=== PATIENT | female | born 1955 | race Caucasian/White ===

== ENCOUNTER → 2017-01-06 | Outpatient (CLI) | payer BC ==
[~2017-01-06] MED LIST: ESTR1TAB24 PO; HYDR-3729 PO; MEDR2.5T PO
--- NOTE | 2017-01-06 11:32 | Diagnostic Imaging Report ---
PROCEDURE: US Thyroid. TECHNIQUE: Multiple real-time grayscale images were obtained of the thyroid in various projections. INDICATION: Thyroid nodule. FINDINGS: The right thyroid lobe is 4.3 x 1.9 x 1.8 cm. The left lobe is 5.1 x 2.5 x 1.8 cm. There is a solid nodule in the inferior aspect of the left lobe measuring 1.7 x 2.5 x 2.2 cm, similar to 01/23/2017. This appears to be stable compared to older studies as well including 2015 exams. There is a nodule in the right thyroid lobe measuring 1.2 x 1.6 x 1.8 cm. This is also similar to prior studies. No new nodule is seen. IMPRESSION: Bilateral stable thyroid nodules likely related to multinodular goiter. Dictated by: Dictated on workstation # [id number]
== END ==
LOC: RAD 09:19
PROVIDERS: ATTEND Otolaryngology Otolaryngology/Facial Plastic Surgery
DX: E04.2 Nontoxic multinodular goiter (principal)
CPT/HCPCS: 76536

== ENCOUNTER → 2017-09-15 | Outpatient (CLI) | payer BC ==
--- NOTE | 2017-09-15 15:11 | Diagnostic Imaging Report ---
INDICATION: Family history of renal cell carcinoma. COMPARISON: Correlation is made with the prior renal ultrasound from 03/13/[address] abdomen study from 03/21/2016. FINDINGS: The right kidney measures 11.3 x 4.7 x 4.1 cm and left kidney measures 10.4 x 5.8 x 5.3 cm. The area of cortical increased echogenicity in the lower pole of the left kidney appears stable when compared with prior ultrasound. No new renal mass is identified. No hydronephrosis is seen. The bladder is decompressed. IMPRESSION: Overall stable renal ultrasound when compared with prior exam from 03/13/2016. Dictated by: Dictated on workstation # [id number]
== END ==
LOC: RAD 12:53
PROVIDERS: ATTEND Nurse Practitioner Family
DX: Q87.89 Other specified congenital malformation syndromes, not elsewhere classified (principal); Z80.51 Family history of malignant neoplasm of kidney
CPT/HCPCS: 76770

== ENCOUNTER 2017-12-22 08:30 | Outpatient (CLI) | payer BC ==
[~2017-12-22] VITALS: Ht 160 cm; Wt 64.4 kg
[~2017-12-22 08:30] MED LIST changes: +MEDR2.5T6 PO
== END 2017-12-22 10:22 ==
LOC: PREOP 08:30
PROVIDERS: ATTEND Surgery
DX: Z01.818 Encounter for other preprocedural examination (principal); Z12.11 Encounter for screening for malignant neoplasm of colon

== ENCOUNTER 2017-12-26 07:16 | Day surgery (SDC) | payer BC ==
--- NOTE | 2017-12-18 06:49 | HISTORY AND PHYSICAL ---
DATE OF SERVICE: COLONOSCOPY H AND P HISTORY OF PRESENT ILLNESS: The patient is a 62-year-old white female, referred by Dr. Jaimes, for screening colonoscopy. She reports one other past colonoscopy likely over 10 years ago, but she does not recall any problems with and did not believe there was history of polyposis or diverticulosis. She reports that she feels well and has again denies bowel habit change, abdominal pain or a known family history for colon cancer. PAST MEDICAL HISTORY: She currently is only on hormone replacement therapy, taking no other medications and reporting no other past medical problems. FAMILY HISTORY: Pertinent for kidney cancer in multiple family members, including her brother diagnosed in his 20s and mother and grandfather, who had kidney cancer both believed to be over than 50 at the time of their diagnosis. Mother at the age of 80 secondary to breast cancer now that became widely metastatic. Father is still living at the age of 82 with hypertension. PAST SURGICAL HISTORY: She underwent cholecystectomy 3 years ago, distant past history of x1, with as I recall two living adult children. SOCIAL HISTORY: She is employed with no past smoking history and no significant past alcohol history. PHYSICAL EXAMINATION: GENERAL: Reveals a well-appearing white female with a normal weight in no acute distress. VITAL SIGNS: Blood pressure 120/80, heart rate 72 and regular. HEENT: Unremarkable. Sclerae are nonicteric. She has a Mallampati class 3 oropharyngeal configuration without evidence for erythema or exudate. CHEST: Clear to auscultation. CARDIOVASCULAR: Reveals a regular rate and rhythm without murmur, S3 or S4. ABDOMEN: Soft, supple without mass, organomegaly or tenderness. EXTREMITIES: Reveal no cyanosis, clubbing or edema. ASSESSMENT: The patient was set up for screening colonoscopy on 12/26, deemed to be of average risk. Prep instructions with Suprep kit were given and questions were answered. With review of her electronic medical record and above evaluation, 45 minutes care time was spent by myself and other 15 minutes of staff time setting of the procedure and going over prep instructions. I thank you for the referral of this pleasant lady. Job ID: [id number] DocumentID: [id number] Dictated Date: 12/12/2017 11:29:31 Sample Sawyer Date: 12/12/2017 12:10:00 Dictated By: TARAN SERRANO MD
[~2017-12-26] VITALS: Ht 160 cm; Wt 64.4 kg
[2017-12-26] MEDS ORDERED: D5 LR IV SOLUTION 1,000 ML IV ONE (07:22)
[2017-12-26] MEDS ORDERED: D5 LR IV SOLUTION 1,000 ML IV STA (07:25)
[2017-12-26] MEDS ORDERED: LIDOCAINE JELLY 2% (XYLOCAINE) 5 ML TUBE MM PRN (07:30)
[2017-12-26 07:37] VITALS: BP 134/80
[2017-12-26] MEDS ORDERED: fentaNYL INJECTION 100 MCG/2 ML AMP ONE ×2 (07:58→08:17)
[2017-12-26] MEDS ORDERED: LIDOCAINE JELLY 2% (XYLOCAINE) 5 ML TUBE ONE (07:58)
[2017-12-26] MEDS ORDERED: MIDAZOLAM 2 MG/2 ML (VERSED) VIAL ONE ×3 (07:59→08:17)
[2017-12-26] MEDS: fentaNYL INJECTION 100 MCG/2 ML AMP IVP PRN ×2 (08:10→08:17)
[2017-12-26] MEDS: MIDAZOLAM 2 MG/2 ML (VERSED) VIAL IVP PRN ×2 (08:11→08:20)
--- NOTE | 2017-12-26 08:51 | Pre-Op Note & Conscious Sedat ---
Pre-Operative Progress Note H&P Reviewed The H&P was reviewed, patient examined and no changes noted. Date H&P Reviewed: Dec 26, 2017 Time H&P Reviewed: 07:50 Conscious Sedation Pre-Proced ASA Class: 2 Airway Mallampati Classification: ([place] appropriate class) I. II. III, IV Lungs Heart ASA score ASA 1: a normal healthy patient ASA 2: a patient with a mild systemic disease (mid diabetes, controlled hypertension, obesity ASA 3: a patient with a severe systemic disease that limits activity (angina , COPD, prior Myocardial infarction) ASA 4: a patient with an incapacitating disease that is a constant threat to life (CHF, renal failure) ASA 5: a moribund patient not expected to survive 24 hrs. (ruptured aneurysm) ASA 6: a declared brain patient whose organs are being harvested. For emergent operations, add the letter E after the classification Grade 3 Sedation Plan: Analgesia, Amnesia, Plan communicated to team members, Discussed options with patient/fam, Discussed risks with patient/fam Note The patient is an appropriate candidate to undergo the planned procedure, sedation, and anesthesia. The patient immediately re-assessed prior to indication. TARAN SERRANO MD Dec 26, 2017 08:51
[2017-12-26 08:55] VITALS: BP 117/67
[2017-12-26 09:25] VITALS: BP 117/55
[2017-12-26 09:40] VITALS: BP 117/55
--- NOTE | 2017-12-26 15:26 | OPERATIVE REPORT ---
DATE OF SERVICE: COLONOSCOPY SUMMARY INDICATIONS FOR THE PROCEDURE: Screening colonoscopy. DESCRIPTION OF PROCEDURE: The patient was placed in the left lateral decubitus position. Prior to undergoing colonoscopy, digital rectal evaluation was performed. Anal sphincter tone was normal and the perianal reflexes intact. No abnormalities, no additional inspection of the anal canal or distal rectal vault. Anal sphincter tone was normal. The colonoscope was then inserted into the rectum and under direct visualization advanced to cecum. The cecum was identified by identification of the ileocecal valve, cecal strap, and the appendiceal orifice. Photographic documentation was obtained. A careful inspection was made as colonoscope was withdrawn. The patient tolerated the procedure well. FINDINGS: There is no evidence for internal or external hemorrhoids and the rectum was unremarkable. Several small sigmoid diverticulum were present without evidence for diverticulitis. No other sigmoid colonic abnormalities were appreciated. The descending colon was unremarkable. Present in the proximal transverse colon was diminutive 2 x 3 mm sessile polyp was photographed and biopsied and ablated with no subsequent blood loss. At the hepatic flexure, ascending colon and cecum were unremarkable. ASSESSMENT: 1. Mild diverticular disease confined to the sigmoid colon was present without evidence for diverticulitis. 2. One diminutive polyp was removed via hot forceps from the proximal transverse colon. No other evidence for neoplasia was identified. As long as there are no surprises on histopathology report, would advocate consideration for repeat screening colonoscopy in 10 years as the patient reports no family history for colon cancer. I thank you for the referral of this pleasant lady. Sincerely, Job ID: [id number] DocumentID: [id number] Dictated Date: 12/26/2017 08:58:54 [employer] Date: 12/26/2017 15:26:12 Dictated By: TARAN SERRANO MD
== END 2017-12-26 09:40 | disposition home or self-care (01) ==
LOC: ENDO 07:16
PROVIDERS: ATTEND Internal Medicine
DX: Z12.11 Encounter for screening for malignant neoplasm of colon (principal); K63.5 Polyp of colon; K57.30 Diverticulosis of large intestine without perforation or abscess without bleeding
CPT/HCPCS: 88305

== ENCOUNTER → 2018-01-26 | Outpatient (CLI) | payer BC ==
--- NOTE | 2018-01-26 12:25 | Diagnostic Imaging Report ---
Clinical indication: Patient with multinodular thyroid gland. COMPARISONS: Thyroid ultrasound dated 01/06/2017. FINDINGS: THYROID NODULES: There is a 1.3 cm x 0.9 cm x 1.0 cm heterogeneous iso-/hypoechoic nodule involving the inferior portion right thyroid gland. This nodule does not completely represent the previously measured nodule. The previously measured nodule was 1.2 cm x 1.6 cm x 1.8 cm and demonstrates no significant major change, as visualized. There is a 2.1 cm x 2.3 cm x 1.8 cm slightly heterogeneous hypoechoic/isoechoic nodule involving the mid to inferior portion of the left thyroid gland. This nodule previously measured 1.7 cm x 2.5 cm x 2.2 cm. THYROID GLAND: Besides the thyroid nodules, the thyroid gland has normal size, shape and echogenicity. The right lobe measures 5.0 cm x 2.1 cm x 1.7 cm and the left lobe measures 5.1 cm x 2.6 cm x 1.8 cm in their three dimensions. The thyroid gland previously measured 4.3 cm x 1.9 cm x 1.8 cm and 5.1 cm x 2.5 cm by 4. ISTHMUS: The isthmus is unremarkable and measures 4 mm in thickness. IMPRESSION: 1: There is slight increased size of the left thyroid gland nodule. 2: Given the differences in technique, there is no major change in the previously seen right thyroid gland nodule. Dictated by: Dictated on workstation # [id number]
== END ==
LOC: RAD 07:55
PROVIDERS: ATTEND Nurse Practitioner Family
DX: E04.2 Nontoxic multinodular goiter (principal)
CPT/HCPCS: 76536

== ENCOUNTER 2018-06-13 20:26 | Observation (INO) | payer BC ==
[~2018-06-13] VITALS: Ht 152.4 cm; Wt 63.3 kg
[2018-06-13] MEDS ORDERED: NITROGLYCERIN 0.4 MG SL TABS BTL 25'S SL PRN ×2 (20:45→23:15)
[2018-06-13] MEDS ORDERED: ASPIRIN 81 MG CHEW (CHILDREN'S ASA) PO ONE (20:45)
--- NOTE | 2018-06-13 20:46 | ED Chest Pain ---
General Stated Complaint: CP Source: patient, spouse Exam Limitations: no limitations History of Present Illness Date Seen by Provider: Jun 13, 2018 Time Seen by Provider: 20:34 Initial Comments Patient presents to the ER by private conveyance with chief complaint of chest pain that lasted about 30 minutes now while at rest watching TV on the couch. She says she's had similar pains to this that lasted less than 20 minutes intermittently over the last week probably 3 or 4 times total. She says the pain is substernal sharp with a lot of pressure radiating up to her left shoulder and down her left arm. She has no history of coronary artery disease. She does not have diabetes thyroid disease, cholesterolemia, hypertension, smoking or familial history of early-onset coronary artery disease. She has not taken anything for it. She denies a history of anxiety or GERD. She takes hormone replacement therapy and no other medications. He only rarely drinks alcohol. She says the pain at its worst was a 9 out of 10 but now is down to about a 1 or 2 out of 10. She has not had this worked up yet. When the pain was at its worst she was having sweats and nausea but no vomiting. Less than a week ago she went to her doctor's office and was given a steroid shot and azithromycin which she has almost completed secondary to a sinus infection. Allergies and Home Medications Allergies Coded Allergies: Sulfa (Sulfonamide Antibiotics) (Unverified Allergy, Unknown, HIVES AND VOMITING, 11/30/14) erythromycin base (Unverified Allergy, Unknown, HIVES AND VOMITING, ) Home Medications Estradiol 1 Mg Tablet, 1 MG PO DAILY, (Reported) Medroxyprogesterone Acetate 2.5 Mg Tablet, 2.5 MG PO HS, (Reported) Patient Home Medication List Home Medication List Reviewed: Yes Review of Systems Review of Systems Constitutional: No chills, No diaphoresis, No fever, No malaise EENTM: No Blurred Vision, No Double Vision Respiratory: Denies Cough, Denies Shortness of Air, Denies SOA With Exertion, Denies SOA at Rest Cardiovascular: See HPI, Chest Pain; Denies Edema, Denies Irregular Heart Rate , Denies Lightheadedness, Denies Palpitations, Denies Syncope Gastrointestinal: Denies Constipated, Denies Diarrhea; Nausea; Denies Vomiting Genitourinary: Denies Burning, Denies Discharge Musculoskeletal: No back pain, No joint pain Skin: No pruritus, No rash Psychiatric/Neurological: Denies Headache, Denies Numbness, Denies Paresthesia Past Ardawtk-Fuqgfd-Zowwrf Hx Patient Social History Alcohol Use: Rarely Uses Alcohol Beverage of Choice: Beer Recreational Drug Use: No Smoking Status: Never a Smoker Recent Foreign Travel: No Contact w/Someone Who Travel: No Recent Hopitalizations: No Seasonal Allergies Seasonal Allergies: Yes Past Medical History Section, Gallbladder Reproductive Disorders: No Gall Bladder Disease Loss of Vision: Bilateral Physical Exam Vital Signs Capillary Refill : Height, Weight, BMI Height: 5'3.00" Weight: 142lbs. 0.0oz. 64.712914kb; 25.2 BMI Method: General Appearance: WD/WN, Anxious, Mild Distress HEENT: PERRL/EOMI, Normal ENT Inspection, Pharynx Normal, Moist Mucous Membranes Neck: Full Range of Motion, Normal Inspection Respiratory: Chest Non Tender, Lungs Clear, Normal Breath Sounds, No Accessory Muscle Use, No Respiratory Distress Cardiovascular: Regular Rate, Rhythm, No Edema, No JVD, No Murmur, Normal Peripheral Pulses Gastrointestinal: Normal Bowel Sounds, Non Tender, Soft Extremity: Normal Capillary Refill, Normal Inspection, Normal Range of Motion, Non Tender, No Pedal Edema Neurologic/Psychiatric: Alert, Oriented x3 Skin: Normal Color, Warm/Dry Progress/Results/Core Measures Results/Orders Lab Results Laboratory Tests Test 06/13/18 20:45 Range/Units White Blood Count 9.2 4.3-11.0 10^3/uL Red Blood Count 4.57 4.35-5.85 10^6/uL Hemoglobin 13.7 11.5-16.0 G/DL Hematocrit 41 35-52 % Mean Corpuscular Volume 89 80-99 FL Mean Corpuscular Hemoglobin 30 25-34 PG Mean Corpuscular Hemoglobin Concent 34 32-36 G/DL Red Cell Distribution Width 13.4 10.0-14.5 % Platelet Count 383 130-400 10^3/uL Mean Platelet Volume 8.5 7.4-10.4 FL Neutrophils (%) (Auto) 53 42-75 % Lymphocytes (%) (Auto) 34 12-44 % Monocytes (%) (Auto) 8 0-12 % Eosinophils (%) (Auto) 5 0-10 % Basophils (%) (Auto) 0 0-10 % Neutrophils # (Auto) 4.9 1.8-7.8 X 10^3 Lymphocytes # (Auto) 3.2 1.0-4.0 X 10^3 Monocytes # (Auto) 0.7 0.0-1.0 X 10^3 Eosinophils # (Auto) 0.5 H 0.0-0.3 10^3/uL Basophils # (Auto) 0.0 0.0-0.1 10^3/uL Prothrombin Time 12.4 12.2-14.7 SEC INR Comment 0.9 0.8-1.4 Activated Partial Thromboplast Time 29 24-35 SEC Sodium Level 141 135-145 MMOL/L Potassium Level 3.7 3.6-5.0 MMOL/L Chloride Level 108 H 98-107 MMOL/L Carbon Dioxide Level 21 21-32 MMOL/L Anion Gap 12 5-14 MMOL/L Blood Urea Nitrogen 16 7-18 MG/DL Creatinine 0.80 0.60-1.30 MG/DL Estimat Glomerular Filtration Rate > 60 BUN/Creatinine Ratio 20 Glucose Level 128 H 70-105 MG/DL Calcium Level 9.3 8.5-10.1 MG/DL Corrected Calcium 9.1 8.5-10.1 MG/DL Magnesium Level 2.3 1.8-2.4 MG/DL Total Bilirubin 0.3 0.1-1.0 MG/DL Aspartate Amino Transf (AST/SGOT) 15 5-34 U/L Alanine Aminotransferase (ALT/SGPT) 15 0-55 U/L Alkaline Phosphatase 93 40-136 U/L Myoglobin 27.7 10.0-92.0 NG/ML Troponin I < 0.30 <0.30 NG/ML Total Protein 6.9 6.4-8.2 GM/DL Albumin 4.3 3.2-4.5 GM/DL Lipase 25 8-78 U/L My Orders Orders - AUSTIN AMAYA Ekg Tracing (06/13/18 20:30) Continuous Ekg Monitoring (06/13/18 20:30) Cbc With Automated Diff (06/13/18 20:39) Magnesium (06/13/18 20:39) Chest 1 View, Ap/Pa Only (06/13/18 20:39) Cardiac Profile 1 (06/13/18 20:39) Comprehensive Metabolic Panel (06/13/18 20:39) Myoglobin Serum (06/13/18 20:39) Protime With Inr (06/13/18 20:39) Partial Thromboplastin Time (06/13/18 20:39) O2 (06/13/18 20:39) Lipid Panel (06/14/18 06:00) Aspirin Chewable Tablet (Baby Aspirin Ch (06/13/18 20:45) Nitroglycerin 0.4 Mg Btl 25's (Nitrostat (06/13/18 20:45) Saline Lock/Iv-Start (06/13/18 20:39) Lipase (06/13/18 20:39) Medications Given in ED Current Medications Medications Dose Ordered Sig/Astrid Route Start Time Stop Time Status Last Admin Dose Admin Aspirin 324 mg ONCE ONCE PO 06/13/18 20:45 06/13/18 20:46 DC 06/13/18 20:48 324 MG Progress Progress Note : Time: 20:47 Progress Note ED ACS 18 points. Not low risk. This patient is not a candidate for early discharge and should receive a standard chest pain evaluation with delayed troponin testing. She is currently pain-free somewhere in all off giving her any nitroglycerin and just get the troponin. Clinically he can rule out a pulmonary embolus mesh is neither tachycardic, short of breath nor having any hypoxia evident on her vital signs. She is on estrogen replacement therapy which is a risk factor but she does not smoke nor is she with any other risk factors. She doesn't have any recent immobilization, trauma, surgery and the symptoms are rather intermittent and not associated with exertion or dyspnea. Initial ECG Impression Date: Jun 13, 2018 Initial ECG Impression Time: 20:30 Initial ECG Rate: 71 Initial ECG Rhythm: Normal Sinus Initial ECG Intervals: Normal Initial ECG Impression: Normal Initial ECG Comparisson: No Previous ECG Available Comment No ST elevation or depression. Diagnostic Imaging Diagonstic Imaging: Xray Plain Films/CT/US/NM/MRI: chest (1v) Comments NAME: JOI RAMIREZ [facility] REC#: [id number] PT STATUS: REG ER : 1955 PHYSICIAN: AUSTIN AMAYA MD ADMIT DATE: 06/13/18/ER Draft Date of Exam:06/13/18 CHEST 1 VIEW, AP/PA ONLY INDICATION: Chest pain COMPARISON: 10/08/2013 FINDINGS: Single frontal view of the chest demonstrates normal heart size and pulmonary vascularity. The lungs are well aerated and clear. No large pleural effusion or pneumothorax is seen. The visualized osseous structures show no acute abnormalities. IMPRESSION: 1. No acute cardiopulmonary process. Dictated on workstation # [id number] Dict: 06/13/182138 Trans: 06/13/182140 [facility] [id number] Interpreted by: EMPERATRIZ WILSON MD Electronically signed by: Reviewed: Reviewed by Me Departure Communication (Admissions) Time/Spoke to Admitting Phy: 21:44 Dr Akbar, she accepts the patient. Time/Spoke to Consulting Phy: 21:44 Vangiealid; Overnight rule out. Impression Primary Impression: Chest pain at rest Disposition: ADMITTED INPATIENT Condition: Stable Admissions Decision to Admit Reason: Admit from ER (General) Decision to Admit/Date: Jun 13, 2018 Time/Decision to Admit Time: 20:49 Departure-Patient Inst. Referrals: MAX MENDOZA MD (PCP/Family) Primary Care Physician Copy Copies To 1: MAX MENDOZA MD, TITUS J Jun 13, 2018 20:46
[2018-06-13 20:49] LABS: BASOPHILS % (AUTO) 0 % (0-10); EOSINOPHILS # (AUTO) 0.5 10^3/uL (0.0-0.3); EOSINOPHILS % (AUTO) 5 % (0-10); HEMATOCRIT 41 % (35-52); HEMOGLOBIN 13.7 G/DL (11.5-16.0); LYMPHOCYTES # (AUTO) 3.2 X 10^3 (1.0-4.0); LYMPHOCYTES % (AUTO) 34 % (12-44); MEAN CORPUSCULAR HEMOGLOBIN 30 PG (25-34); MEAN CORPUSCULAR HGB CONC 34 G/DL (32-36); MEAN CORPUSCULAR VOLUME 89 FL (80-99); MEAN PLATELET VOLUME 8.5 FL (7.4-10.4); MONOCYTES # (AUTO) 0.7 X 10^3 (0.0-1.0); MONOCYTES % (AUTO) 8 % (0-12); NEUTROPHILS # (AUTO) 4.9 X 10^3 (1.8-7.8); NEUTROPHILS % (AUTO) 53 % (42-75); PLATELET COUNT 383 10^3/uL (130-400); RED BLOOD COUNT 4.57 10^6/uL (4.35-5.85); RED CELL DISTRIBUTION WIDTH 13.4 % (10.0-14.5); WHITE BLOOD COUNT 9.2 10^3/uL (4.3-11.0)
[2018-06-13 21:17] LABS: CARBON DIOXIDE 21 MMOL/L (21-32); CHLORIDE 108 MMOL/L (98-107); POTASSIUM 3.7 MMOL/L (3.6-5.0); SODIUM 141 MMOL/L (135-145)
[2018-06-13 21:18] LABS: ALANINE AMINOTRANSFERASE 15 U/L (0-55); ALBUMIN 4.3 GM/DL (3.2-4.5); ALKALINE PHOSPHATASE 93 U/L (40-136); BILIRUBIN,TOTAL 0.3 MG/DL (0.1-1.0); BUN/CREATININE RATIO 20; CALCIUM 9.3 MG/DL (8.5-10.1); GFR ESTIMATED > 60; GLUCOSE 128 MG/DL (70-105); LIPASE 25 U/L (8-78); MAGNESIUM 2.3 MG/DL (1.8-2.4); TOTAL PROTEIN 6.9 GM/DL (6.4-8.2)
[2018-06-13 21:19] LABS: MYOGLOBIN SERUM 27.7 NG/ML (10.0-92.0)
[2018-06-13 21:25] LABS: INR 0.9 (0.8-1.4); PROTHROMBIN TIME PATIENT 12.4 SEC (12.2-14.7)
--- NOTE | 2018-06-13 21:41 | Diagnostic Imaging Report ---
INDICATION: Chest pain COMPARISON: 10/08/2013 FINDINGS: Single frontal view of the chest demonstrates normal heart size and pulmonary vascularity. The lungs are well aerated and clear. No large pleural effusion or pneumothorax is seen. The visualized osseous structures show no acute abnormalities. IMPRESSION: 1. No acute cardiopulmonary process. Dictated by: Dictated on workstation # [id number]
--- OUTSIDE RECORDS SUMMARY | 2018-06-13 22:12 | XMS REPORT | CCD ---
Author Author Alisha Dash Organization Alisha Dash MD, [facility] Address [address] [place] [address] Phone Care Team Providers Care Force Dispatcher Name Role Phone PP Unavailable CCM Unavailable Summary Purpose Interface Exchange Insurance Providers Payer name Policy type / Coverage type Covered constitution party ID Effective Begin Date Effective End Date [facility] [id number] 2017 Unknown Family history Brother Diagnosis Age At Onset genetic disease Unknown Social History Social History Element Codes Description Effective Dates Marital status Unknown 07/30/2016 Number of children Unknown 2 11/28/2014 Employment Unknown Currently employed [employer] 11/28/[address]: 478940667 Has never smoked or chewed tobacco 11/28/2014 Alcohol history Unknown occasionally drinks alcohol wine 11/28/2014 Allergies, Adverse Reactions, Alerts Substance Reaction Codes Entered Date Inactivated Date Status * NO KNOWN FOOD ALLERGIES Unknown 11/28/2014 No Inactive Date Active Erythromycin RxNorm: 4053 06/10/2018 No Inactive Date Active zithromax RxNorm: 266330 09/06/2016 No Inactive Date Active SULFA (SULFONAMIDES) Unknown 06/10/2018 No Inactive Date Active Past Medical History Illness Codes Condition Status Onset Date Resolved Date Other acute sinusitis ICD-9: 461.8 ICD-10: J01.80 Active 11/27/2015 Unknown Other allergic rhinitis ICD-9: 477.8 ICD-10: J30.89 Active 06/03/2017 Unknown Acute recurrent maxillary sinusitis ICD-9: 461.0 ICD-10: J01.01 Active 06/18/2015 Unknown Cough ICD-9: 786.2 ICD-10: R05 Active 07/30/2016 Unknown Impacted cerumen, bilateral ICD-9: 380.4 ICD-10: H61.23 Active 07/31/2017 Unknown Acute laryngopharyngitis ICD-9: 465.0 ICD-10: J06.0 Active 11/27/2015 Unknown Plantar fascial fibromatosis ICD-9: 728.71 ICD-10: M72.2 Active 04/07/2017 Unknown Allergic rhinitis due to pollen ICD-9: 477.9 ICD-10: J30.1 Active 07/30/2016 Unknown Generalized abdominal pain ICD-9: 789.07 ICD-10: R10.84 Active 03/05/2016 Unknown Irritable bowel syndrome without diarrhea ICD-9: 564.1 ICD-10: K58.9 Active 03/05/2016 Unknown Impacted cerumen, right ear ICD-9: 389.8 ICD-10: H61.21 Active 06/18/2015 Unknown Abdominal pain ICD-9: 789.00 Active 11/27/2014 Unknown 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 11/27/2014 Unknown Gallstones ICD-9: 574.20 Active 11/27/2014 Unknown Problems Condition Codes Effective Dates Condition Status Other acute sinusitis ICD-9: 461.8 ICD-10: J01.80 11/27/2015 Active Other allergic rhinitis ICD-9: 477.8 ICD-10: J30.89 06/03/2017 Active Acute recurrent maxillary sinusitis ICD-9: 461.0 ICD-10: J01.01 06/18/2015 Active Cough ICD-9: 786.2 ICD-10: R05 07/30/2016 Active Impacted cerumen, bilateral ICD-9: 380.4 ICD-10: H61.23 07/31/2017 Active Acute laryngopharyngitis ICD-9: 465.0 ICD-10: J06.0 11/27/2015 Active Plantar fascial fibromatosis ICD-9: 728.71 ICD-10: M72.2 04/07/2017 Active Allergic rhinitis due to pollen ICD-9: 477.9 ICD-10: J30.1 07/30/2016 Active Generalized abdominal pain ICD-9: 789.07 ICD-10: R10.84 03/05/2016 Active Irritable bowel syndrome without diarrhea ICD-9: 564.1 ICD-10: K58.9 03/05/2016 Active Impacted cerumen, right ear ICD-9: 389.8 ICD-10: H61.21 06/18/2015 Active Abdominal pain ICD-9: 789.00 11/27/2014 Active 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/27/2014 Active Gallstones ICD-9: 574.20 11/27/2014 Active Medications Medication Codes Instructions Start Date Stop Date Status Fill Instructions Zithromax Z-Tera 250 mg tablet RxNorm: 664503 1 Tablet(s) PO UD 06/10/2018 No Stop Date Active z pack as directed Kenalog 40 mg/mL suspension for injection RxNorm: 2371304 1 Milliliter(s) Inj 06/10/2018 06/10/2018 Inactive Keflex 500 mg capsule RxNorm: 491901 1 Capsule(s) PO TID 201701/15/2018 Inactive Keflex 500 mg capsule RxNorm: 351548 1 Capsule(s) PO TID 201701/22/2018 Inactive Augmentin 875 mg-125 mg tablet RxNorm: 022828 1 Tablet(s) PO BID 12/04/2017 12/10/2017 Inactive Kenalog 40 mg/mL suspension for injection RxNorm: 2073377 1 Milliliter(s) Inj 12/04/2017 12/04/2017 Inactive Kenalog 40 mg/mL suspension for injection RxNorm: 3511543 1 Milliliter(s) Inj 06/03/2017 06/03/2017 Inactive Zithromax Z-Tera 250 mg tablet RxNorm: 056648 1 Tablet(s) PO UD 06/03/2017 07/30/2017 Inactive z pack as directed Vimovo 500 mg-20 mg tablet,immediate and delay release RxNorm: 462851 1 Tablet(s) PO BID as needed 04/07/2017 04/09/2017 Inactive amoxicillin 500 mg capsule RxNorm: 095050 1 Capsule(s) PO TID 11/11/2016 11/17/2016 Inactive Zithromax Z-Tera 250 mg tablet RxNorm: 837671 1 Tablet(s) PO UD 09/06/2016 11/10/2016 Inactive z pack as directed hyoscyamine 0.125 mg sublingual tablet RxNorm: 8302634 1 Tablet(s) SL TID as needed 03/06/2016 03/10/2016 Inactive amoxicillin 500 mg capsule RxNorm: 148566 1 Capsule(s) PO TID 11/28/2015 12/07/2015 Inactive Kenalog 40 mg/mL suspension for injection RxNorm: 8603895 Milliliter(s) Inj 11/28/2015 11/28/2015 Inactive Kenalog 40 mg/mL suspension for injection RxNorm: 1377802 Milliliter(s) Inj 06/19/2015 06/19/2015 Inactive amoxicillin 500 mg capsule RxNorm: 319275 1 Capsule(s) PO TID 06/19/2015 06/28/2015 Inactive estradiol 1 mg tablet RxNorm: 639596 1 Tablet(s) PO daily No Start Date Active medroxyprogesterone 2.5 mg tablet RxNorm: 3378349 Tablet(s) PO daily No Start Date Active Zithromax Z-Tera 250 mg tablet RxNorm: 711393 1 Tablet(s) PO UD No Start Date 09/05/2016 Inactive z pack as directed Medication Administered Medication Codes Instructions Start Date Status Kenalog 40 mg/mL suspension for injection RxNorm: 0281455 1Milliliter 06/10/2018 Active Kenalog 40 mg/mL suspension for injection RxNorm: 8491992 1Milliliter 12/04/2017 No longer Active Kenalog 40 mg/mL suspension for injection RxNorm: 1636625 1Milliliter 06/03/2017 No longer Active Kenalog 40 mg/mL suspension for injection RxNorm: 9355287 Milliliter 11/28/2015 No longer Active Kenalog 40 mg/mL suspension for injection RxNorm: 6226950 Milliliter 06/19/2015 No longer Active Immunizations No Immunization data Assessments Condition Codes Effective Dates Other acute sinusitis ICD-10: J01.80 ICD-9: 461.8 06/10/2018 Other allergic rhinitis ICD-10: J30.89 ICD-9: 477.8 06/10/2018 Acute recurrent maxillary sinusitis ICD-10: J01.01 ICD-9: 461.0 12/04/2017 Cough ICD-10: R05 ICD-9: 786.2 12/04/2017 Impacted cerumen, bilateral ICD-10: H61.23 ICD-9: 380.4 07/31/2017 Acute laryngopharyngitis ICD-10: J06.0 ICD-9: 465.0 06/03/2017 Plantar fascial fibromatosis ICD-10: M72.2 ICD-9: 728.71 04/07/2017 Allergic rhinitis due to pollen ICD-10: J30.1 ICD-9: 477.9 07/30/2016 Generalized abdominal pain ICD-10: R10.84 ICD-9: 789.07 03/06/2016 Irritable bowel syndrome without diarrhea ICD-10: K58.9 ICD-9: 564.1 03/06/2016 Impacted cerumen, right ear ICD-10: H61.21 ICD-9: 389.8 06/19/2015 Gallstones ICD-9: 574.20 11/28/2014 Abdominal pain ICD-9: 789.00 11/28/2014 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 05/2015 Reason For Visit Reason For Visit Effective Dates Notes sinus congestion 06/10/2018 sinus congestion 12/04/2017 earache 07/31/2017 cough 06/03/2017 foot pain 04/07/2017 cough 07/30/2016 headache 03/06/2016 cough 11/28/2015 sinus congestion 06/19/2015 abdominal pain 11/28/2014 Results No Results data Review of Systems System Result Effective Dates Constitutional recent illness 06/10/2018 Constitutional No chills 06/10/2018 Constitutional No diaphoresis 06/10/2018 Constitutional No fever 06/10/2018 Eyes No eye erythema 06/10/2018 Ears/Nose/Throat/Neck nasal allergies Ears/Nose/Throat/Neck nasal discharge Ears/Nose/Throat/Neck postnasal drip Ears/Nose/Throat/Neck sinus congestion Ears/Nose/Throat/Neck No sore throat Cardiovascular No chest pain/pressure Cardiovascular No dyspnea 06/10/2018 Respiratory No chest congestion 2017 Respiratory cough 06/10/2018 Respiratory No dyspnea 06/10/2018 Gastrointestinal No abdominal pain 2017 Gastrointestinal No constipation 2017 Gastrointestinal No diarrhea 06/10/2018 Gastrointestinal No nausea 06/10/2018 Gastrointestinal No vomiting 06/10/2018 Dermatologic No rash 06/10/2018 Neurologic No alteration of consciousness 06/10/2018 Neurologic No mental status change 2017 Constitutional recent illness 12/04/2017 Constitutional No anorexia 12/04/2017 Constitutional No night sweats 2017 Constitutional No chills 12/04/2017 Constitutional No diaphoresis 12/04/2017 Constitutional fatigue 12/04/2017 Constitutional No fever 12/04/2017 Constitutional No insomnia 12/04/2017 Constitutional No malaise 12/04/2017 Constitutional No weight gain 12/04/2017 Constitutional No weight loss 12/04/2017 Eyes No eye discharge 12/04/2017 Eyes No eye erythema 12/04/2017 Ears/Nose/Throat/Neck No dizziness 2017 Ears/Nose/Throat/Neck headache 2017 Ears/Nose/Throat/Neck nasal allergies Ears/Nose/Throat/Neck nasal discharge Ears/Nose/Throat/Neck otalgia 12/04/2017 Ears/Nose/Throat/Neck sinus congestion Ears/Nose/Throat/Neck sore throat 2017 Cardiovascular No chest pain/pressure Respiratory No productive sputum 2017 Respiratory No chest congestion 2017 Respiratory cough 12/04/2017 Gastrointestinal No vomiting 12/04/2017 Gastrointestinal No nausea 12/04/2017 Genitourinary/Nephrology No dysuria 12/04 Musculoskeletal No joint complaint 2017 Dermatologic No rash 12/04/2017 Neurologic No alteration of consciousness 12/04/2017 Constitutional recent illness 07/31/2017 Constitutional No chills 07/31/2017 Constitutional No diaphoresis 07/31/2017 Constitutional No fatigue 07/31/2017 Constitutional No fever 07/31/2017 Eyes No eye erythema 07/31/2017 Ears/Nose/Throat/Neck nasal allergies 05/2018 Ears/Nose/Throat/Neck No nasal discharge 07/31/2017 Ears/Nose/Throat/Neck postnasal drip 05/2018 Ears/Nose/Throat/Neck hearing loss 2017 Ears/Nose/Throat/Neck No sinus congestion 07/31/2017 Ears/Nose/Throat/Neck No sore throat 05/2018 Cardiovascular No chest pain/pressure 05/2018 Cardiovascular No dyspnea 07/31/2017 Respiratory No cough 07/31/2017 Respiratory No chest congestion 2017 Gastrointestinal No abdominal pain 2017 Musculoskeletal No joint complaint 2017 Dermatologic No rash 07/31/2017 Neurologic No alteration of consciousness 07/31/2017 Neurologic No mental status change 2017 Constitutional recent illness 06/03/2017 Constitutional No chills 06/03/2017 Constitutional No fatigue 06/03/2017 Constitutional No fever 06/03/2017 Eyes No eye erythema 06/03/2017 Eyes No vision change 06/03/2017 Ears/Nose/Throat/Neck hearing loss 2016 Ears/Nose/Throat/Neck otalgia 06/03/2017 Ears/Nose/Throat/Neck postnasal drip Ears/Nose/Throat/Neck sinus congestion Cardiovascular No chest pain/pressure Cardiovascular No dyspnea 06/03/2017 Cardiovascular No palpitations 2016 Respiratory No chest congestion 2016 Respiratory cough 06/03/2017 Gastrointestinal No constipation 2016 Gastrointestinal No diarrhea 06/03/2017 Gastrointestinal No nausea 06/03/2017 Gastrointestinal No vomiting 06/03/2017 Musculoskeletal No joint complaint 2016 Dermatologic No rash 06/03/2017 Dermatologic No scar 06/03/2017 Neurologic No alteration of consciousness 06/03/2017 Neurologic No mental status change 2016 Respiratory No dyspnea 06/03/2017 Constitutional No recent illness 2016 Constitutional No chills 04/07/2017 Constitutional No diaphoresis 04/07/2017 Constitutional No fever 04/07/2017 Eyes No eye erythema 04/07/2017 Ears/Nose/Throat/Neck No nasal discharge 04/07/2017 Cardiovascular No chest pain/pressure Cardiovascular No dyspnea 04/07/2017 Respiratory No cough 04/07/2017 Respiratory No dyspnea 04/07/2017 Musculoskeletal joint complaint 2016 Neurologic No alteration of consciousness 04/07/2017 Neurologic No mental status change 2016 Constitutional No chills 07/30/2016 Constitutional fatigue 07/30/2016 Constitutional No fever 07/30/2016 Eyes No blindness 07/30/2016 Eyes No vision change 07/30/2016 Ears/Nose/Throat/Neck No nasal allergies 07/30/2016 Ears/Nose/Throat/Neck No nasal discharge 07/30/2016 Cardiovascular No chest pain/pressure 04/2017 Cardiovascular No dyspnea 07/30/2016 Respiratory No chest congestion 2016 Respiratory No cough 07/30/2016 Gastrointestinal abdominal pain 2016 Gastrointestinal constipation 07/30/2016 Gastrointestinal nausea 07/30/2016 Gastrointestinal No vomiting 07/30/2016 Musculoskeletal No joint complaint 2016 Dermatologic No rash 07/30/2016 Dermatologic No scar 07/30/2016 Neurologic No alteration of consciousness 07/30/2016 Neurologic No mental status change 2016 Psychiatric No anxiety 07/30/2016 Psychiatric No depression 07/30/2016 Constitutional No chills 03/06/2016 Constitutional fatigue 03/06/2016 Constitutional No fever 03/06/2016 Eyes No eye erythema 03/06/2016 Eyes No vision change 03/06/2016 Cardiovascular No chest pain/pressure Respiratory No chest congestion 2015 Respiratory No cough 03/06/2016 Gastrointestinal abdominal pain 2015 Gastrointestinal constipation 03/06/2016 Gastrointestinal nausea 03/06/2016 Gastrointestinal No vomiting 03/06/2016 Dermatologic No rash 03/06/2016 Dermatologic No scar 03/06/2016 Neurologic No alteration of consciousness 03/06/2016 Psychiatric No anxiety 03/06/2016 Psychiatric No depression 03/06/2016 Ears/Nose/Throat/Neck No nasal allergies 03/06/2016 Ears/Nose/Throat/Neck No nasal discharge 03/06/2016 Cardiovascular No dyspnea 03/06/2016 Musculoskeletal No joint complaint 2015 Neurologic No mental status change 2015 Constitutional recent illness 11/28/2015 Constitutional No chills 11/28/2015 Constitutional No fatigue 11/28/2015 Constitutional No fever 11/28/2015 Eyes No eye erythema 11/28/2015 Eyes No vision change 11/28/2015 Ears/Nose/Throat/Neck hearing loss 2015 Ears/Nose/Throat/Neck otalgia 11/28/2015 Cardiovascular No chest pain/pressure 04/2016 Cardiovascular No palpitations 2015 Respiratory No chest congestion 2015 Respiratory cough 11/28/2015 Gastrointestinal No constipation 2015 Gastrointestinal No diarrhea 11/28/2015 Gastrointestinal No nausea 11/28/2015 Gastrointestinal No vomiting 11/28/2015 Dermatologic No rash 11/28/2015 Dermatologic No scar 11/28/2015 Neurologic No alteration of consciousness 11/28/2015 Psychiatric No anxiety 11/28/2015 Psychiatric No depression 11/28/2015 Ears/Nose/Throat/Neck sinus congestion Ears/Nose/Throat/Neck postnasal drip 04/2016 Cardiovascular No dyspnea 11/28/2015 Musculoskeletal No joint complaint 2015 Neurologic No mental status change 2015 Constitutional recent illness 06/19/2015 Constitutional No chills 06/19/2015 Constitutional No fatigue 06/19/2015 Constitutional No fever 06/19/2015 Eyes No blindness 06/19/2015 Eyes No vision change 06/19/2015 Cardiovascular No chest pain/pressure Cardiovascular No near-syncope/dizziness 06/19/2015 Cardiovascular No palpitations 2014 Respiratory No chest congestion 2014 Respiratory cough 06/19/2015 Gastrointestinal No constipation 2014 Gastrointestinal No diarrhea 06/19/2015 Musculoskeletal No stiffness 06/19/2015 Musculoskeletal No arthralgia(s) 2014 Dermatologic No rash 06/19/2015 Dermatologic No scar 06/19/2015 Neurologic No alteration of consciousness 06/19/2015 Psychiatric No anxiety 06/19/2015 Psychiatric No depression 06/19/2015 Ears/Nose/Throat/Neck sinus congestion Ears/Nose/Throat/Neck otalgia 06/19/2015 Ears/Nose/Throat/Neck hearing loss 2014 Gastrointestinal No nausea 06/19/2015 Gastrointestinal No vomiting 06/19/2015 Constitutional No chills 11/28/2014 Constitutional No fatigue 11/28/2014 Constitutional No fever 11/28/2014 Constitutional No recent illness 2014 Ears/Nose/Throat/Neck No dizziness 2014 Ears/Nose/Throat/Neck No headache 2014 Cardiovascular No chest pain/pressure 05/2015 Cardiovascular No near-syncope/dizziness 11/28/2014 Cardiovascular No palpitations 2014 Respiratory No chest congestion 2014 Respiratory No cough 11/28/2014 Gastrointestinal abdominal pain 2014 Gastrointestinal No constipation 2014 Gastrointestinal diarrhea 11/28/2014 Gastrointestinal nausea 11/28/2014 Gastrointestinal No vomiting 11/28/2014 Genitourinary/Nephrology No dysuria 11/28 Neurologic No alteration of consciousness 11/28/2014 Psychiatric No anxiety 11/28/2014 Psychiatric No depression 11/28/2014 Dermatologic No rash 11/28/2014 Dermatologic No scar 11/28/2014 Musculoskeletal No stiffness 11/28/2014 Musculoskeletal No arthralgia(s) 2014 Eyes No blindness 11/28/2014 Eyes No vision change 11/28/2014 Physical Exam Exam Name System Name Item Name Status Result Effective Dates Notes Full Exam - ENT Constitutional general appearance Overall: well nourished 06/10/2018 None Full Exam - ENT Constitutional general appearance Overall: well developed 06/10/2018 None Full Exam - ENT Constitutional general appearance Overall: in no acute distress 06/10/2018 None Full Exam - ENT Ears/Nose/Throat otoscopic exam Overall: external auditory canals normal 06/10/2018 None Full Exam - ENT Ears/Nose/Throat otoscopic exam Left tympanic membrane: air -fluid level 06/10/2018 None Full Exam - ENT Ears/Nose/Throat otoscopic exam Right tympanic membrane: air-fluid level 06/10/2018 None Full Exam - ENT Ears/Nose/Throat nasal mucosa, septum, turbinates Drainage: clear 06/10/2018 None Full Exam - ENT Ears/Nose/Throat nasal mucosa, septum, turbinates Drainage: yellow 06/10/2018 None Full Exam - ENT Ears/Nose/Throat lips/ teeth/gingiva Overall: benign lips 06/10/2018 None Full Exam - ENT Ears/Nose/Throat oropharynx Posterior Pharynx: clear post nasal drainage 06/10/2018 None Full Exam - ENT Face and Head palpation Left maxillary sinus: tender 06/10/2018 None Full Exam - ENT Face and Head palpation Right maxillary sinus: tender 06/10/2018 None Full Exam - ENT Respiratory inspection Overall: no retractions 06/10/2018 None Full Exam - ENT Respiratory inspection Overall: normal rate None Full Exam - ENT Respiratory auscultation Overall: breath sounds clear bilaterally 06/10/2018 None Full Exam - ENT Cardiovascular auscultation of heart Overall: regular rate 06/10/2018 None Full Exam - ENT Cardiovascular auscultation of heart Overall: normal heart sounds 06/10/2018 None Full Exam - ENT Lymphatic palpation of lymph nodes Overall: anterior cervical chain benign 06/10/2018 None Full Exam - ENT Lymphatic palpation of lymph nodes Overall: posterior cervical chain benign 06/10/2018 None Full Exam - ENT Neurologic mood and affect Overall: normal mood 06/10/2018 None Full Exam - ENT Neurologic mood and affect Overall: normal affect 06/10/2018 None Full Exam - ENT Neurologic orientation Overall: oriented to person, place and time 06/10/2018 None Full Exam - General 1994 Constitutional general appearance Overall: well developed 12/04/2017 None Full Exam - General 1994 Constitutional general appearance Overall: in no acute distress 12/04/2017 None Full Exam - General 1994 Constitutional general appearance Overall: well nourished 12/04/2017 None Full Exam - General 1994 Constitutional general appearance Hygiene/Attention to Grooming: good hygiene 12/04/2017 None Full Exam - General 1994 Eyes conjunctiva /eyelids Overall: conjunctiva clear 12/04/2017 None Full Exam - General 1994 Eyes conjunctiva /eyelids Overall: cornea clear 12/04/2017 None Full Exam - General 1994 Eyes conjunctiva /eyelids Overall: eyelids normal 12/04/2017 None Full Exam - General 1994 Eyes pupils and irises Overall: pupils equal, round, reactive to light and accomodation 12/04/2017 None Full Exam - General 1994 Ears/Nose/Throat otoscopic exam External auditory canal: partial cerumen occlusion 12/04/2017 None Full Exam - General 1994 Ears/Nose/Throat otoscopic exam Tympanic membrane: air- fluid level 12/04/2017 None Full Exam - General 1994 Ears/Nose/Throat internal nose Sinus tenderness: left maxillary 12/04/2017 None Full Exam - General 1994 Ears/Nose/Throat internal nose Sinus tenderness: right maxillary 12/04/2017 None Full Exam - General 1994 Ears/Nose/Throat lips/teeth/gingiva Overall: benign lips 12/04/2017 None Full Exam - General 1994 Ears/Nose/Throat lips/teeth/gingiva Overall: normal dentition 12/04/2017 None Full Exam - General 1994 Ears/Nose/Throat oral cavity/pharynx/larynx Overall: oral mucosa clear 12/04/2017 None Full Exam - General 1994 Ears/Nose/Throat oral cavity/pharynx/larynx Posterior Pharynx: clear post nasal drainage 12/04/2017 None Full Exam - General 1994 Ears/Nose/Throat oral cavity/pharynx/larynx Oropharynx: erythema 12/04/2017 None Full Exam - General 1994 Respiratory auscultation Overall: breath sounds clear bilaterally 12/04/2017 None Full Exam - General 1994 Respiratory respiratory effort/rhythm Overall: no retractions 12/04/2017 None Full Exam - General 1994 Respiratory respiratory effort/rhythm Overall: normal rate 12/04/2017 None Full Exam - General 1994 Cardiovascular extremities Overall: no clubbing 12/04/2017 None Full Exam - General 1994 Cardiovascular auscultation of heart Overall: regular rate 12/04/2017 None Full Exam - General 1994 Cardiovascular auscultation of heart Overall: normal heart sounds 12/04/2017 None Full Exam - General 1994 Neurologic gait Overall: no ataxia, no unsteadiness 12/04/2017 None Full Exam - General 1994 Neurologic cranial nerves Overall: crainial nerves 2 - 12 grossly intact 12/04/2017 None Full Exam - General 1994 Psychiatric orientation/consciousness Overall: oriented to person, place and time 12/04/2017 None Full Exam - General 1994 Psychiatric mood and affect Overall: normal mood and affect 12/04/2017 None Full Exam - General 1994 Psychiatric appearance Overall: well-groomed, good eye contact 12/04/2017 None Full Exam - General 1994 Lymphatic neck nodes Overall: posterior cervical chain benign 12/04/2017 None Full Exam - General 1994 Lymphatic neck nodes Overall: anterior cervical chain benign 12/04/2017 None Full Exam - ENT Constitutional general appearance Overall: well nourished 07/31/2017 None Full Exam - ENT Constitutional general appearance Overall: well developed 07/31/2017 None Full Exam - ENT Constitutional general appearance Overall: in no acute distress 07/31/2017 None Full Exam - ENT Ears/Nose/Throat otoscopic exam Left external auditory canal: complete cerumen impaction 07/31/2017 None Full Exam - ENT Ears/Nose/Throat otoscopic exam Right external auditory canal: complete cerumen impaction 07/31/2017 None Full Exam - ENT Ears/Nose/Throat otoscopic exam Overall: tympanic membranes normal 07/31/2017 noted after removal of cerumen Full Exam - ENT Ears/Nose/Throat lips/ teeth/gingiva Overall: benign lips 07/31/2017 None Full Exam - ENT Ears/Nose/Throat oropharynx Overall: oral mucosa clear 07/31/2017 None Full Exam - ENT Ears/Nose/Throat oropharynx Posterior Pharynx: clear post nasal drainage 07/31/2017 None Full Exam - ENT Respiratory inspection Overall: no retractions 07/31/2017 None Full Exam - ENT Respiratory inspection Overall: normal rate 05/2018 None Full Exam - ENT Respiratory auscultation Overall: breath sounds clear bilaterally 07/31/2017 None Full Exam - ENT Cardiovascular auscultation of heart Overall: normal heart sounds 07/31/2017 None Full Exam - ENT Cardiovascular auscultation of heart Overall: regular rate 07/31/2017 None Full Exam - ENT Lymphatic palpation of lymph nodes Overall: posterior cervical chain benign 07/31/2017 None Full Exam - ENT Lymphatic palpation of lymph nodes Overall: anterior cervical chain benign 07/31/2017 None Full Exam - ENT Musculoskeletal gait and station Overall: normal station 07/31/2017 None Full Exam - ENT Musculoskeletal gait and station Overall: normal gait 07/31/2017 None Full Exam - ENT Neurologic mood and affect Overall: normal mood 07/31/2017 None Full Exam - ENT Neurologic mood and affect Overall: normal affect 07/31/2017 None Full Exam - ENT Neurologic orientation Overall: oriented to person, place and time 07/31/2017 None Full Exam - ENT Neurologic cranial nerves /coordination Overall: cranial nerves 2- 12 grossly intact 07/31/2017 None Full Exam - General 1994 Constitutional general appearance Hygiene/Attention to Grooming: good hygiene 06/03/2017 None Full Exam - General 1994 Eyes conjunctiva /eyelids Overall: conjunctiva clear 06/03/2017 None Full Exam - General 1994 Eyes conjunctiva /eyelids Overall: cornea clear 06/03/2017 None Full Exam - General 1994 Eyes conjunctiva /eyelids Overall: eyelids normal 06/03/2017 None Full Exam - General 1994 Eyes pupils and irises Overall: pupils equal, round, reactive to light and accomodation 06/03/2017 None Full Exam - General 1994 Ears/Nose/Throat otoscopic exam External auditory canal: partial cerumen occlusion 06/03/2017 None Full Exam - General 1994 Ears/Nose/Throat otoscopic exam Tympanic membrane: air- fluid level 06/03/2017 None Full Exam - General 1994 Ears/Nose/Throat internal nose Sinus tenderness: left frontal 06/03/2017 None Full Exam - General 1994 Ears/Nose/Throat internal nose Sinus tenderness: right frontal 06/03/2017 None Full Exam - General 1994 Ears/Nose/Throat internal nose Sinus tenderness: left maxillary 06/03/2017 None Full Exam - General 1994 Ears/Nose/Throat internal nose Sinus tenderness: right maxillary 06/03/2017 None Full Exam - General 1994 Ears/Nose/Throat lips/teeth/gingiva Overall: benign lips 06/03/2017 None Full Exam - General 1994 Ears/Nose/Throat lips/teeth/gingiva Overall: normal dentition 06/03/2017 None Full Exam - General 1994 Ears/Nose/Throat oral cavity/pharynx/larynx Overall: oral mucosa clear 06/03/2017 None Full Exam - General 1994 Ears/Nose/Throat oral cavity/pharynx/larynx Posterior Pharynx: clear post nasal drainage 06/03/2017 None Full Exam - General 1994 Ears/Nose/Throat oral cavity/pharynx/larynx Oropharynx: erythema 06/03/2017 None Full Exam - General 1994 Respiratory auscultation Overall: breath sounds clear bilaterally 06/03/2017 None Full Exam - General 1994 Respiratory respiratory effort/rhythm Overall: no retractions 06/03/2017 None Full Exam - General 1994 Respiratory respiratory effort/rhythm Overall: normal rate 06/03/2017 None Full Exam - General 1994 Cardiovascular extremities Overall: no clubbing 06/03/2017 None Full Exam - General 1994 Cardiovascular auscultation of heart Overall: regular rate 06/03/2017 None Full Exam - General 1994 Cardiovascular auscultation of heart Overall: normal heart sounds 06/03/2017 None Full Exam - General 1994 Neurologic gait Overall: no ataxia, no unsteadiness 06/03/2017 None Full Exam - General 1994 Neurologic cranial nerves Overall: crainial nerves 2 - 12 grossly intact 06/03/2017 None Full Exam - General 1994 Psychiatric orientation/consciousness Overall: oriented to person, place and time 06/03/2017 None Full Exam - General 1994 Psychiatric mood and affect Overall: normal mood and affect 06/03/2017 None Full Exam - General 1994 Psychiatric appearance Overall: well-groomed, good eye contact 06/03/2017 None Full Exam - General 1994 Constitutional general appearance Overall: well developed 06/03/2017 None Full Exam - General 1994 Constitutional general appearance Overall: in no acute distress 06/03/2017 None Full Exam - General 1994 Constitutional general appearance Overall: well nourished 06/03/2017 None Full Exam - Orthopedics Constitutional general appearance Overall: well nourished 04/07/2017 None Full Exam - Orthopedics Constitutional general appearance Overall: well developed 04/07/2017 None Full Exam - Orthopedics Constitutional general appearance Overall: in no acute distress 04/07/2017 None Full Exam - Orthopedics Eyes conjunctiva/ eyelids Overall: conjunctiva clear 04/07/2017 None Full Exam - Orthopedics Eyes conjunctiva/ eyelids Overall: eyelids normal 04/07/2017 None Full Exam - Orthopedics Ears/Nose/Throat lips/teeth/gingiva Overall: benign lips 04/07/2017 None Full Exam - Orthopedics Ears/Nose/Throat oral cavity/pharynx/larynx Overall: oral mucosa clear 04/07/2017 None Full Exam - Orthopedics Respiratory respiratory effort/rhythm Overall: no retractions 04/07/2017 None Full Exam - Orthopedics Respiratory respiratory effort/rhythm Overall: normal rate 04/07/2017 None Full Exam - Orthopedics Psychiatric orientation/consciousness Overall: oriented to person, place and time 04/07/2017 None Full Exam - Orthopedics Psychiatric mood and affect Overall: normal mood and affect 04/07/2017 None Full Exam - Orthopedics Psychiatric appearance Overall: well-groomed, good eye contact 04/07/2017 None Full Exam - Orthopedics MS: right lower extremity insp & palp - RLE Rearfoot: normal appearance 04/07/2017 None Full Exam - Orthopedics MS: right lower extremity range of motion - RLE Rearfoot: full range of motion 04/07/2017 None Full Exam - Orthopedics MS: right lower extremity insp & palp - RLE Pes planus: present 04/07/2017 None Full Exam - Orthopedics MS: left lower extremity insp & palp - LLE Pes planus: present 04/07/2017 None Full Exam - General 1994 Constitutional general appearance Overall: well developed 07/30/2016 None Full Exam - General 1994 Constitutional general appearance Overall: in no acute distress 07/30/2016 None Full Exam - General 1994 Constitutional general appearance Overall: well nourished 07/30/2016 None Full Exam - General 1994 Constitutional general appearance Hygiene/Attention to Grooming: good hygiene 07/30/2016 None Full Exam - General 1994 Eyes conjunctiva /eyelids Overall: conjunctiva clear 07/30/2016 None Full Exam - General 1994 Eyes conjunctiva /eyelids Overall: cornea clear 07/30/2016 None Full Exam - General 1994 Eyes conjunctiva /eyelids Overall: eyelids normal 07/30/2016 None Full Exam - General 1994 Ears/Nose/Throat lips/teeth/gingiva Overall: benign lips 07/30/2016 None Full Exam - General 1994 Ears/Nose/Throat lips/teeth/gingiva Overall: normal dentition 07/30/2016 None Full Exam - General 1994 Ears/Nose/Throat oral cavity/pharynx/larynx Overall: oral mucosa clear 07/30/2016 None Full Exam - General 1994 Respiratory auscultation Overall: breath sounds clear bilaterally 07/30/2016 None Full Exam - General 1994 Respiratory respiratory effort/rhythm Overall: no retractions 07/30/2016 None Full Exam - General 1994 Respiratory respiratory effort/rhythm Overall: normal rate 07/30/2016 None Full Exam - General 1994 Cardiovascular extremities Overall: no clubbing 07/30/2016 None Full Exam - General 1994 Cardiovascular auscultation of heart Overall: regular rate 07/30/2016 None Full Exam - General 1994 Cardiovascular auscultation of heart Overall: normal heart sounds 07/30/2016 None Full Exam - General 1994 Abdomen abdominal exam Overall: normal bowel sounds 07/30/2016 None Full Exam - General 1994 Abdomen abdominal exam Upper quadrant: dull pain 07/30/2016 None Full Exam - General 1994 Abdomen abdominal exam Upper quadrant: no guarding 07/30/2016 None Full Exam - General 1994 Abdomen abdominal exam Upper quadrant: no rebound tenderness 07/30/2016 None Full Exam - General 1994 Abdomen abdominal exam Upper quadrant: no mass lesions 07/30/2016 None Full Exam - General 1994 Abdomen abdominal exam Upper quadrant: soft 07/30/2016 None Full Exam - General 1994 Abdomen abdominal exam Lower quadrant: dull pain 07/30/2016 None Full Exam - General 1994 Abdomen abdominal exam Lower quadrant: no guarding 07/30/2016 None Full Exam - General 1994 Abdomen abdominal exam Lower quadrant: no rebound tenderness 07/30/2016 None Full Exam - General 1994 Abdomen abdominal exam Lower quadrant: no mass lesions 07/30/2016 None Full Exam - General 1994 Abdomen abdominal exam Lower quadrant: soft 07/30/2016 None Full Exam - General 1994 Abdomen abdominal exam Epigastric: dull pain 07/30/2016 None Full Exam - General 1994 Neurologic cranial nerves Overall: crainial nerves 2 - 12 grossly intact 07/30/2016 None Full Exam - General 1994 Psychiatric orientation/consciousness Overall: oriented to person, place and time 07/30/2016 None Full Exam - General 1994 Psychiatric mood and affect Overall: normal mood and affect 07/30/2016 None Full Exam - General 1994 Psychiatric appearance Overall: well-groomed, good eye contact 07/30/2016 None Full Exam - General 1994 Psychiatric speech Overall: normal quality, no aphasia 07/30/2016 None Full Exam - General 1994 Psychiatric speech Overall: normal quality, quantity, rate 07/30/2016 None Full Exam - General 1994 Lymphatic neck nodes Overall: anterior cervical chain benign 07/30/2016 None Full Exam - General 1994 Lymphatic neck nodes Overall: posterior cervical chain benign 07/30/2016 None Full Exam - General 1994 Constitutional general appearance Hygiene/Attention to Grooming: good hygiene 03/06/2016 None Full Exam - General 1994 Eyes conjunctiva /eyelids Overall: conjunctiva clear 03/06/2016 None Full Exam - General 1994 Eyes conjunctiva /eyelids Overall: cornea clear 03/06/2016 None Full Exam - General 1994 Eyes conjunctiva /eyelids Overall: eyelids normal 03/06/2016 None Full Exam - General 1994 Ears/Nose/Throat lips/teeth/gingiva Overall: benign lips 03/06/2016 None Full Exam - General 1994 Ears/Nose/Throat lips/teeth/gingiva Overall: normal dentition 03/06/2016 None Full Exam - General 1994 Ears/Nose/Throat oral cavity/pharynx/larynx Overall: oral mucosa clear 03/06/2016 None Full Exam - General 1994 Respiratory auscultation Overall: breath sounds clear bilaterally 03/06/2016 None Full Exam - General 1994 Respiratory respiratory effort/rhythm Overall: no retractions 03/06/2016 None Full Exam - General 1994 Respiratory respiratory effort/rhythm Overall: normal rate 03/06/2016 None Full Exam - General 1994 Cardiovascular extremities Overall: no clubbing 03/06/2016 None Full Exam - General 1994 Cardiovascular auscultation of heart Overall: regular rate 03/06/2016 None Full Exam - General 1994 Cardiovascular auscultation of heart Overall: normal heart sounds 03/06/2016 None Full Exam - General 1994 Neurologic cranial nerves Overall: crainial nerves 2 - 12 grossly intact 03/06/2016 None Full Exam - General 1994 Psychiatric orientation/consciousness Overall: oriented to person, place and time 03/06/2016 None Full Exam - General 1994 Psychiatric mood and affect Overall: normal mood and affect 03/06/2016 None Full Exam - General 1994 Constitutional general appearance Overall: well developed 03/06/2016 None Full Exam - General 1994 Constitutional general appearance Overall: in no acute distress 03/06/2016 None Full Exam - General 1994 Constitutional general appearance Overall: well nourished 03/06/2016 None Full Exam - General 1994 Abdomen abdominal exam Overall: normal bowel sounds 03/06/2016 None Full Exam - General 1994 Abdomen abdominal exam Epigastric: dull pain 03/06/2016 None Full Exam - General 1994 Abdomen abdominal exam Upper quadrant: dull pain 03/06/2016 None Full Exam - General 1994 Abdomen abdominal exam Upper quadrant: no guarding 03/06/2016 None Full Exam - General 1994 Abdomen abdominal exam Upper quadrant: no rebound tenderness 03/06/2016 None Full Exam - General 1994 Abdomen abdominal exam Upper quadrant: no mass lesions 03/06/2016 None Full Exam - General 1994 Abdomen abdominal exam Upper quadrant: soft 03/06/2016 None Full Exam - General 1994 Abdomen abdominal exam Lower quadrant: dull pain 03/06/2016 None Full Exam - General 1994 Abdomen abdominal exam Lower quadrant: no guarding 03/06/2016 None Full Exam - General 1994 Abdomen abdominal exam Lower quadrant: no rebound tenderness 03/06/2016 None Full Exam - General 1994 Abdomen abdominal exam Lower quadrant: no mass lesions 03/06/2016 None Full Exam - General 1994 Abdomen abdominal exam Lower quadrant: soft 03/06/2016 None Full Exam - General 1994 Psychiatric appearance Overall: well-groomed, good eye contact 03/06/2016 None Full Exam - General 1994 Psychiatric speech Overall: normal quality, no aphasia 03/06/2016 None Full Exam - General 1994 Psychiatric speech Overall: normal quality, quantity, rate 03/06/2016 None Full Exam - General 1994 Constitutional general appearance Development: well developed 11/28/2015 None Full Exam - General 1994 Constitutional general appearance Development: appears stated age 0511/28/2015 None Full Exam - General 1994 Constitutional general appearance Hygiene/Attention to Grooming: good hygiene 11/28/2015 None Full Exam - General 1994 Eyes conjunctiva /eyelids Overall: conjunctiva clear 11/28/2015 None Full Exam - General 1994 Eyes conjunctiva /eyelids Overall: cornea clear 11/28/2015 None Full Exam - General 1994 Eyes conjunctiva /eyelids Overall: eyelids normal 11/28/2015 None Full Exam - General 1994 Eyes pupils and irises Overall: pupils equal, round, reactive to light and accomodation 11/28/2015 None Full Exam - General 1994 Ears/Nose/Throat lips/teeth/gingiva Overall: benign lips 11/28/2015 None Full Exam - General 1994 Ears/Nose/Throat lips/teeth/gingiva Overall: normal dentition 11/28/2015 None Full Exam - General 1994 Ears/Nose/Throat oral cavity/pharynx/larynx Overall: oral mucosa clear 11/28/2015 None Full Exam - General 1994 Ears/Nose/Throat oral cavity/pharynx/larynx Overall: no masses 11/28/2015 None Full Exam - General 1994 Ears/Nose/Throat oral cavity/pharynx/larynx Oropharynx: erythema 11/28/2015 None Full Exam - General 1994 Respiratory auscultation Overall: breath sounds clear bilaterally 11/28/2015 None Full Exam - General 1994 Respiratory respiratory effort/rhythm Overall: no retractions 11/28/2015 None Full Exam - General 1994 Respiratory respiratory effort/rhythm Overall: normal rate 11/28/2015 None Full Exam - General 1994 Cardiovascular extremities Overall: no clubbing 11/28/2015 None Full Exam - General 1994 Cardiovascular auscultation of heart Overall: regular rate 11/28/2015 None Full Exam - General 1994 Cardiovascular auscultation of heart Overall: normal heart sounds 11/28/2015 None Full Exam - General 1994 Abdomen abdominal exam Overall: normal bowel sounds 11/28/2015 None Full Exam - General 1994 Neurologic cranial nerves Overall: crainial nerves 2 - 12 grossly intact 11/28/2015 None Full Exam - General 1994 Psychiatric orientation/consciousness Overall: oriented to person, place and time 11/28/2015 None Full Exam - General 1994 Psychiatric mood and affect Overall: normal mood and affect 11/28/2015 None Full Exam - General 1994 Ears/Nose/Throat otoscopic exam External auditory canal: partial cerumen occlusion 11/28/2015 None Full Exam - General 1994 Ears/Nose/Throat otoscopic exam Tympanic membrane: air- fluid level 11/28/2015 None Full Exam - General 1994 Ears/Nose/Throat internal nose Sinus tenderness: right maxillary 11/28/2015 None Full Exam - General 1994 Ears/Nose/Throat internal nose Sinus tenderness: left maxillary 11/28/2015 None Full Exam - General 1994 Ears/Nose/Throat internal nose Sinus tenderness: right frontal 11/28/2015 None Full Exam - General 1994 Ears/Nose/Throat internal nose Sinus tenderness: left frontal 11/28/2015 None Full Exam - General 1994 Ears/Nose/Throat oral cavity/pharynx/larynx Posterior Pharynx: clear post nasal drainage 11/28/2015 None Full Exam - General 1994 Neurologic gait Overall: no ataxia, no unsteadiness 11/28/2015 None Full Exam - General 1994 Psychiatric appearance Overall: well-groomed, good eye contact 11/28/2015 None Full Exam - General 1994 Constitutional general appearance Development: well developed 06/19/2015 None Full Exam - General 1994 Constitutional general appearance Development: appears stated age 1106/19/2015 None Full Exam - General 1994 Constitutional general appearance Hygiene/Attention to Grooming: good hygiene 06/19/2015 None Full Exam - General 1994 Eyes conjunctiva /eyelids Overall: conjunctiva clear 06/19/2015 None Full Exam - General 1994 Eyes conjunctiva /eyelids Overall: cornea clear 06/19/2015 None Full Exam - General 1994 Eyes conjunctiva /eyelids Overall: eyelids normal 06/19/2015 None Full Exam - General 1994 Eyes pupils and irises Overall: pupils equal, round, reactive to light and accomodation 06/19/2015 None Full Exam - General 1994 Ears/Nose/Throat lips/teeth/gingiva Overall: benign lips 06/19/2015 None Full Exam - General 1994 Ears/Nose/Throat lips/teeth/gingiva Overall: normal dentition 06/19/2015 None Full Exam - General 1994 Ears/Nose/Throat oral cavity/pharynx/larynx Overall: oral mucosa clear 06/19/2015 None Full Exam - General 1994 Ears/Nose/Throat oral cavity/pharynx/larynx Overall: no masses 06/19/2015 None Full Exam - General 1994 Respiratory auscultation Overall: breath sounds clear bilaterally 06/19/2015 None Full Exam - General 1994 Respiratory respiratory effort/rhythm Overall: no retractions 06/19/2015 None Full Exam - General 1994 Respiratory respiratory effort/rhythm Overall: normal rate 06/19/2015 None Full Exam - General 1994 Cardiovascular extremities Overall: no clubbing 06/19/2015 None Full Exam - General 1994 Cardiovascular auscultation of heart Overall: regular rate 06/19/2015 None Full Exam - General 1994 Cardiovascular auscultation of heart Overall: normal heart sounds 06/19/2015 None Full Exam - General 1994 Neurologic cranial nerves Overall: crainial nerves 2 - 12 grossly intact 06/19/2015 None Full Exam - General 1994 Psychiatric orientation/consciousness Overall: oriented to person, place and time 06/19/2015 None Full Exam - General 1994 Psychiatric mood and affect Overall: normal mood and affect 06/19/2015 None Full Exam - General 1994 Ears/Nose/Throat otoscopic exam External auditory canal: partial cerumen occlusion 06/19/2015 None Full Exam - General 1994 Ears/Nose/Throat otoscopic exam External auditory canal: complete cerumen impaction 06/19/2015 None Full Exam - General 1994 Ears/Nose/Throat otoscopic exam Tympanic membrane: air- fluid level 06/19/2015 Noted after cerumen removal Full Exam - General 1994 Ears/Nose/Throat oral cavity/pharynx/larynx Oropharynx: erythema 06/19/2015 None Full Exam - General 1994 Abdomen abdominal exam Overall: normal bowel sounds 06/19/2015 None Full Exam - General 1994 Constitutional general appearance Development: appears stated age 0511/28/2014 None Full Exam - General 1994 Constitutional general appearance Development: well developed 11/28/2014 None Full Exam - General 1994 Constitutional general appearance Hygiene/Attention to Grooming: good hygiene 11/28/2014 None Full Exam - General 1994 Eyes conjunctiva /eyelids Overall: conjunctiva clear 11/28/2014 None Full Exam - General 1994 Eyes conjunctiva /eyelids Overall: cornea clear 11/28/2014 None Full Exam - General 1994 Eyes conjunctiva /eyelids Overall: eyelids normal 11/28/2014 None Full Exam - General 1994 Eyes pupils and irises Overall: pupils equal, round, reactive to light and accomodation 11/28/2014 None Full Exam - General 1994 Ears/Nose/Throat otoscopic exam Overall: external auditory canals clear 11/28/2014 None Full Exam - General 1994 Ears/Nose/Throat otoscopic exam Overall: tympanic membranes clear 11/28/2014 None Full Exam - General 1994 Ears/Nose/Throat lips/teeth/gingiva Overall: benign lips 11/28/2014 None Full Exam - General 1994 Ears/Nose/Throat lips/teeth/gingiva Overall: normal dentition 11/28/2014 None Full Exam - General 1994 Ears/Nose/Throat oral cavity/pharynx/larynx Overall: hypopharynx benign 11/28/2014 None Full Exam - General 1994 Ears/Nose/Throat oral cavity/pharynx/larynx Overall: no masses 11/28/2014 None Full Exam - General 1994 Ears/Nose/Throat oral cavity/pharynx/larynx Overall: oral mucosa clear 11/28/2014 None Full Exam - General 1994 Ears/Nose/Throat oral cavity/pharynx/larynx Overall: oropharyngeal mucosa clear 11/28/2014 None Full Exam - General 1994 Respiratory auscultation Overall: breath sounds clear bilaterally 11/28/2014 None Full Exam - General 1994 Respiratory respiratory effort/rhythm Overall: no retractions 11/28/2014 None Full Exam - General 1994 Respiratory respiratory effort/rhythm Overall: normal rate 11/28/2014 None Full Exam - General 1994 Cardiovascular extremities Overall: no clubbing 11/28/2014 None Full Exam - General 1994 Cardiovascular auscultation of heart Overall: normal heart sounds 11/28/2014 None Full Exam - General 1994 Cardiovascular auscultation of heart Overall: regular rate 11/28/2014 None Full Exam - General 1994 Integument inspection of skin Overall: few scattered moles, no gross abnormalities 11/28/2014 None Full Exam - General 1994 Neurologic deep tendon reflexes Overall: deep tendon reflexes intact 11/28/2014 None Full Exam - General 1994 Neurologic cranial nerves Overall: crainial nerves 2 - 12 grossly intact 11/28/2014 None Full Exam - General 1994 Psychiatric orientation/consciousness Overall: oriented to person, place and time 11/28/2014 None Full Exam - General 1994 Psychiatric mood and affect Overall: normal mood and affect 11/28/2014 None Full Exam - General 1994 Abdomen abdominal exam Bowel sounds: a normal exam 11/28/2014 None Full Exam - General 1994 Abdomen abdominal exam Upper quadrant: tender to palpation 11/28/2014 None Full Exam - General 1994 Abdomen abdominal exam Lower quadrant: non-tender to palpation 11/28/2014 None Procedures Procedure Codes Date TRIAMCINOLONE ACET INJ NOS CPT-4: J3301 06/10/2018 TRIAMCINOLONE ACET INJ NOS CPT-4: J3301 12/04/2017 TRIAMCINOLONE ACET INJ NOS CPT-4: J3301 06/03/2017 TRIAMCINOLONE ACET INJ NOS CPT-4: J3301 11/28/2015 THER/PROPH/DIAG INJ SC/IM CPT-4: 47212 06/19/2015 TRIAMCINOLONE ACET INJ NOS CPT-4: J3301 06/19/2015 Vital Signs Date Vital 06/10/2018 Blood Pressure 1: 130/80 Code : 8480-6 BMI: 27.7 Code : 80053-0 Heart Rate 1 : 82 bpm Height: 5' SpO2: 96% Weight: 142 lbs 12/04/2017 Blood Pressure 1: 132/82 Code : 8480-6 BMI: 27.7 Code : 73002-8 Heart Rate 1 : 84 bpm Height: 5' SpO2: 98% Temperature: 36.6 (C) / 97.9 (F) Weight: 142 lbs 07/31/2017 Blood Pressure 1: 132/80 Code : 8480-6 BMI: 27.5 Code : 79631-0 Heart Rate 1 : 76 bpm Height: 5' SpO2: 99% Weight: 141 lbs 06/03/2017 Blood Pressure 1: 128/78 Code : 8480-6 BMI: 26.6 Code : 80397-9 Heart Rate 1 : 82 bpm Height: 5' SpO2: 98% Weight: 136 lbs 04/07/2017 Blood Pressure 1: 130/82 Code : 8480-6 BMI: 26.6 Code : 25495-9 Heart Rate 1 : 85 bpm Height: 5' SpO2: 99% Weight: 136 lbs 07/30/2016 Blood Pressure 1: 120/82 Code : 8480-6 BMI: 26.6 Code : 40034-0 Heart Rate 1 : 107 bpm Height: 5' SpO2: 96% Temperature: 38.4 (C) / 101.1 (F) Weight: 136 lbs 03/06/2016 Blood Pressure 1: 140/78 Code : 8480-6 BMI: 25.0 Code : 38256-9 Heart Rate 1 : 89 bpm Height: 5' SpO2: 98% Weight: 128 lbs 11/28/2015 Blood Pressure 1: 130/76 Code : 8480-6 BMI: 25.0 Code : 52174-5 Heart Rate 1 : 79 bpm Height: 5' SpO2: 98% Weight: 128 lbs 06/19/2015 Blood Pressure 1: 130/76 Code : 8480-6 BMI: 26.2 Code : 69972-9 Heart Rate 1 : 91 bpm Height: 5' SpO2: 98% Weight: 134 lbs 11/28/2014 Blood Pressure 1: 110/64 Code : 8480-6 BMI: 26.4 Code : 53540-5 Heart Rate 1 : 88 bpm Height: 5' Weight: 135 lbs Functional Status No Functional Status data History of Present Illness Symptom Name Status Result Effective Date Notes sinus congestion Location on the left 06/10/2018 None sinus congestion Location on the right 06/10/2018 None sinus congestion Quality acute 06/10/2018 None sinus congestion Onset and Resolution sudden in onset 06/10/2018 None sinus congestion Onset of Symptom 4-5 days ago 06/10/2018 None sinus congestion Pertinent Findings decreased energy level 06/10/2018 None sinus congestion Pertinent Findings Denies fever 06/10/2018 None sinus congestion Pertinent Findings swollen glands 06/10/2018 None sinus congestion Quality acute 12/04/2017 None sinus congestion Quality pain 12/04/2017 None sinus congestion Quality pressure 12/04/2017 None sinus congestion Quality fullness 12/04/2017 None sinus congestion Location on both sides 12/04/2017 None sinus congestion Pertinent Findings cough 12/04/2017 at night sinus congestion Pertinent Findings decreased energy level 12/04/2017 None sinus congestion Pertinent Findings fever 12/04/2017 -low grade for a couple of days she thinks sinus congestion Triggers allergens 12/04/2017 None sinus congestion Onset and Resolution sudden in onset 12/04/2017 None sinus congestion Onset of Symptom ~2 weeks ago 12/04/2017 None earache Location right ear 07/31/2017 None earache Quality acute 07/31/2017 None earache Onset and Resolution ongoing 07/31/2017 None earache Onset of Symptom 2.5 weeks ago 07/31/2017 None earache Triggers no known triggers 07/31/2017 None earache Quality worsening 07/31/2017 None cough Location in the throat 06/03/2017 None cough Quality dry None cough Onset and Resolution sudden in onset 06/03/2017 None cough Onset of Symptom 2 weeks ago 06/03/2017 None cough Frequency of Episodes daily 06/03/2017 None sinus congestion Onset and Resolution sudden in onset 06/03/2017 None sinus congestion Onset of Symptom 2 weeks ago 06/03/2017 None sinus congestion Pertinent Findings cough 06/03/2017 None sinus congestion Pertinent Findings hoarseness 06/03/2017 None sinus congestion Location on both sides 06/03/2017 None sinus congestion Quality constant 06/03/2017 None sinus congestion Quality fullness 06/03/2017 None foot pain Location on the right 04/07/2017 None foot pain Location plantar heel 04/07/2017 None foot pain Quality constant 04/07/2017 None foot pain Quality stabbing 04/07/2017 None foot pain Quality aching 04/07/2017 None foot pain Onset and Resolution gradual in onset 04/07/2017 None foot pain Onset of Symptom 3 months ago 04/07/2017 None foot pain Frequency of Episodes daily 04/07/2017 None foot pain Pertinent Findings limping 04/07/2017 None foot pain Pertinent Findings pain with movement 04/07/2017 None foot pain Pertinent Findings stiffness 04/07/2017 None cough Quality acute None cough Quality dry 04/2017 None cough Quality intermittent 07/30/2016 None cough Onset and Resolution sudden in onset 07/30/2016 None cough Onset of Symptom 3 days ago 07/30/2016 None cough Pertinent Findings chills 07/30/2016 None cough Pertinent Findings fever 07/30/2016 None cough Pertinent Findings muscle aches 07/30/2016 None cough Pertinent Findings nasal congestion 07/30/2016 None cough Pertinent Findings Denies nausea 07/30/2016 None cough Pertinent Findings Denies sputum production 07/30/2016 None headache Location diffusely 03/06/2016 None headache Quality aching 03/06/2016 None headache Quality dull 03/06/2016 None headache Quality constant 03/06/2016 None headache Onset and Resolution sudden in onset 03/06/2016 None headache Onset of Symptom 1 months ago 03/06/2016 None fatigue Limitation on Activities moderately limits activities 03/06/2016 None fatigue Onset of Symptom 1 months ago 03/06/2016 None fatigue Frequency of Episodes daily 03/06/2016 None constipation Quality constant 03/06/2016 None constipation Onset and Resolution gradual in onset 03/06/2016 None constipation Onset of Symptom 1 months ago 03/06/2016 None constipation Pertinent Findings decreased energy level 03/06/2016 None constipation Pertinent Findings lightheadedness 03/06/2016 None constipation Pertinent Findings nausea 03/06/2016 None cough Location in the throat 11/28/2015 None cough Quality dry 04/2016 None cough Onset and Resolution sudden in onset 11/28/2015 None cough Onset of Symptom 2 weeks ago 11/28/2015 None cough Frequency of Episodes daily 11/28/2015 None sinus congestion Onset and Resolution sudden in onset 11/28/2015 None sinus congestion Onset of Symptom 2 weeks ago 11/28/2015 None sinus congestion Pertinent Findings cough 11/28/2015 None sinus congestion Pertinent Findings hoarseness 11/28/2015 None sinus congestion Location on both sides 11/28/2015 None sinus congestion Quality constant 11/28/2015 None sinus congestion Quality fullness 11/28/2015 None sore throat Location on both sides 11/28/2015 None sore throat Quality dull 11/28/2015 None sore throat Quality aching 11/28/2015 None sore throat Quality scratchy 11/28/2015 None sore throat Onset and Resolution sudden in onset 11/28/2015 None sore throat Onset of Symptom 2 weeks ago 11/28/2015 None sore throat Frequency of Episodes daily 11/28/2015 None earache Location both ears 11/28/2015 None earache Onset and Resolution sudden in onset 11/28/2015 None earache Onset of Symptom 2 weeks ago 11/28/2015 None sinus congestion Location on the right 06/19/2015 None sinus congestion Quality fullness 06/19/2015 None sinus congestion Quality pressure 06/19/2015 None sinus congestion Onset and Resolution sudden in onset 06/19/2015 None sinus congestion Onset of Symptom 2 weeks ago 06/19/2015 None sinus congestion Severity mild 06/19/2015 None sinus congestion Frequency of Episodes daily 06/19/2015 None sinus congestion Pertinent Findings cough 06/19/2015 None earache Location right ear 06/19/2015 None earache Quality throbbing 06/19/2015 None earache Onset and Resolution sudden in onset 06/19/2015 None earache Onset of Symptom 1 days ago 06/19/2015 None earache Frequency of Episodes daily 06/19/2015 None cough Location in the throat 06/19/2015 None cough Quality productive 06/19/2015 None cough Onset and Resolution sudden in onset 06/19/2015 None cough Onset of Symptom 1 weeks ago 06/19/2015 None cough Frequency of Episodes daily 06/19/2015 None abdominal pain Location in the LUQ 11/28/2014 None abdominal pain Radiating the back 11/28/2014 None abdominal pain Onset of Symptom 2 weeks ago 11/28/2014 None abdominal pain Frequency of Episodes hourly 11/28/2014 None abdominal pain Frequency of Episodes daily 11/28/2014 None abdominal pain Quality constant 11/28/2014 None abdominal pain Pertinent Findings back pain 11/28/2014 None abdominal pain Pertinent Findings cholelithiasis 11/28/2014 None abdominal pain Pertinent Findings Denies dyspnea 11/28/2014 None abdominal pain Pertinent Findings Denies nausea 11/28/2014 None abdominal pain Pertinent Findings Denies vomiting 11/28/2014 None abdominal pain Triggers meals 11/28/2014 None Advance Directives No Advance Directive data Encounters Encounter Performer Location Codes Date EST. PATIENT, LEVEL IV Diagnosis: Other acute sinusitis[ICD10: J01.80] Diagnosis: Other allergic rhinitis[ICD10: J30.89] Jolene Dash MD, [facility] CPT-4: 05044 06/10/2018 ([id number]) 14551 EST. PATIENT, LEVEL III Diagnosis: Cough[ICD10: R05] Diagnosis: Acute recurrent maxillary sinusitis[ICD10: J01.01] Isis Dash MD, [facility] CPT-4: 65841 12/04/2017 [id number] EST. PATIENT, LEVEL IV Diagnosis: Impacted cerumen, bilateral[ICD10: H61.23] Diagnosis: Other allergic rhinitis[ICD10: J30.89] Jolene Dash MD, [facility] CPT-4: 97477 07/31/2017 [id number] EST. PATIENT, LEVEL IV Diagnosis: Other acute sinusitis[ICD10: J01.80] Diagnosis: Acute laryngopharyngitis[ICD10: J06.0] Diagnosis: Other allergic rhinitis[ICD10: J30.89] Jolene Dash MD, [facility] CPT-4: 89248 06/03/2017 [id number] EST. PATIENT, LEVEL III Diagnosis: Plantar fascial fibromatosis[ICD10: M72.2] Jolene Dash MD, [facility] CPT-4: 11129 04/07/2017 ([id number]) 35167 EST. PATIENT, LEVEL III Diagnosis: Cough[ICD10: R05] Diagnosis: Allergic rhinitis due to pollen[ICD10: J30.1] Alisha Dash MD, [facility] CPT-4: 18209 07/30/2016 [id number] EST. PATIENT, LEVEL IV Diagnosis: Generalized abdominal pain[ICD10: R10.84] Diagnosis: Irritable bowel syndrome without diarrhea[ICD10: K58.9] Jolene Dash MD, [facility] CPT-4: 01001 03/06/2016 [id number] EST. PATIENT, LEVEL IV Diagnosis: Other acute sinusitis[ICD10: J01.80] Diagnosis: Acute laryngopharyngitis[ICD10: J06.0] [facility] CPT-4: 01944 11/28/2015 [id number] EST. 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] [facility] CPT-4: 43588 11/28/2014 Plan of Care Planned Activity Notes Codes Status Date Patient Education: Patient Medication Summary Completed 06/10/2018 Patient Education: Sinusitis Completed 06/10/2018 Appointment: Isis Villa WPtel: [phone] [facility] [phone] [place] (15 min) Moderate 12/04/2017 Patient Education: Patient Medication Summary Completed 12/04/2017 Appointment: Jolene Willard WPtel: [phone] [facility] [place] [address] [place] (30 min) Complex 07/31/2017 Patient Education: Patient Medication Summary Completed 07/31/2017 Appointment: Jolene Willard WPtel: [phone] [facility] [address] [place] [address] (30 min) Complex 06/03/2017 Patient Education: Patient Medication Summary Completed 06/03/2017 Referral: Abdi Muhammad Referral Initiated 04/21/2017 Appointment: Jolene Willard WPtel: [phone] [facility] [address] [place] [address] [place] (15 min) Moderate 04/07/2017 Patient Education: Patient Medication Summary Completed 04/07/2017 Care Plan: Referral Order SNOMED-CT : [id number] Pending 04/07/2017 Patient Education: Patient Medication Summary Completed 07/30/2016 Appointment: Isis Villa WPtel: [phone] (15 min) Moderate 03/06/2016 Patient Education: Patient Medication Summary Completed 03/06/2016 Care Plan: Comp Metabolic Pending 03/06/2016 Care Plan: Cbc With Differential Pending 03/06/2016 Care Plan: Amylase Pending 03/06/2016 Care Plan: Lipase Pending 03/06/2016 Appointment: Isis Villa WPtel: [phone] (15 min) Moderate 11/28/2015 Patient Education: Patient Medication Summary Completed 11/28/2015 Patient Education: Obesity Completed 11/28/2015 Appointment: (15 min) Moderate 06/19/2015 Patient Education: Patient Medication Summary Completed 06/19/2015 Appointment: Alisha Dash WPtel: [facility] [place] ([place] New Patient 11/28/2014 Patient Education: Patient Medication Summary Completed 11/28/2014 Patient Education: Hypertension Completed 11/28/2014 Referral: Abdi Muhammad Referral Initiated Instructions No Instructions
--- OUTSIDE RECORDS SUMMARY | 2018-06-13 22:13 | XMS REPORT | CCD ---
Author Author Alisha Dash Organization Alisha Dash MD, [facility] Address [address] [place] [address] Phone Care Team Providers Care Advertising Copywriter Name Role Phone PP Unavailable CCM Unavailable Summary Purpose Interface Exchange Insurance Providers Payer name Policy type / Coverage type Covered alliance party ID Effective Begin Date Effective End Date [facility] [id number] 2017 Unknown Family history Brother Diagnosis Age At Onset genetic disease Unknown Social History Social History Element Codes Description Effective Dates Marital status Unknown 07/30/2016 Number of children Unknown 2 11/28/2014 Employment Unknown Currently employed [employer] 11/28/[address]: 565674522 Has never smoked or chewed tobacco 11/28/2014 Alcohol history Unknown occasionally drinks alcohol wine 11/28/2014 Allergies, Adverse Reactions, Alerts Substance Reaction Codes Entered Date Inactivated Date Status * NO KNOWN FOOD ALLERGIES Unknown 11/28/2014 No Inactive Date Active Erythromycin RxNorm: 4053 06/10/2018 No Inactive Date Active zithromax RxNorm: 092707 09/06/2016 No Inactive Date Active SULFA (SULFONAMIDES) [...] Abdominal pain ICD-9: 789.00 Active 11/27/2014 Unknown 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 11/27/2014 Unknown Gallstones [...] Active Abdominal pain ICD-9: 789.00 11/27/2014 Active 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 11/27/2014 Active Gallstones ICD-9: 574.20 11/27/2014 Active Medications Medication Codes Instructions Start Date Stop Date Status Fill Instructions Zithromax Z-Tera 250 mg tablet RxNorm: 713269 1 Tablet(s) PO UD 06/10/2018 No Stop Date Active z pack as directed Kenalog 40 mg/mL suspension for injection RxNorm: 4088997 1 Milliliter(s) Inj 06/10/2018 06/10/2018 Inactive Keflex 500 mg capsule RxNorm: 144408 1 Capsule(s) PO TID 201701/15/2018 Inactive Keflex 500 mg capsule RxNorm: 150060 1 Capsule(s) PO TID 201701/22/2018 Inactive Augmentin 875 mg-125 mg tablet RxNorm: 384574 1 Tablet(s) PO BID 12/04/2017 12/10/2017 Inactive Kenalog 40 mg/mL suspension for injection RxNorm: 4802898 1 Milliliter(s) Inj 12/04/2017 12/04/2017 Inactive Kenalog 40 mg/mL suspension for injection RxNorm: 1012695 1 Milliliter(s) Inj 06/03/2017 06/03/2017 Inactive Zithromax Z-Tera 250 mg tablet RxNorm: 617658 1 Tablet(s) PO UD 06/03/2017 07/30/2017 Inactive z pack as directed Vimovo 500 mg-20 mg tablet,immediate and delay release RxNorm: 340498 1 Tablet(s) PO BID as needed 04/07/2017 04/09/2017 Inactive amoxicillin 500 mg capsule RxNorm: 458325 1 Capsule(s) PO TID 11/11/2016 11/17/2016 Inactive Zithromax Z-Tera 250 mg tablet RxNorm: 039583 1 Tablet(s) PO UD 09/06/2016 11/10/2016 Inactive z pack as directed hyoscyamine 0.125 mg sublingual tablet RxNorm: 5384450 1 Tablet(s) SL TID as needed 03/06/2016 03/10/2016 Inactive amoxicillin 500 mg capsule RxNorm: 098113 1 Capsule(s) PO TID 11/28/2015 12/07/2015 Inactive Kenalog 40 mg/mL suspension for injection RxNorm: 5851998 Milliliter(s) Inj 11/28/2015 11/28/2015 Inactive Kenalog 40 mg/mL suspension for injection RxNorm: 7482363 Milliliter(s) Inj 06/19/2015 06/19/2015 Inactive amoxicillin 500 mg capsule RxNorm: 675494 1 Capsule(s) PO TID 06/19/2015 06/28/2015 Inactive estradiol 1 mg tablet RxNorm: 054545 1 Tablet(s) PO daily No Start Date Active medroxyprogesterone 2.5 mg tablet RxNorm: 4473748 Tablet(s) PO daily No Start Date Active Zithromax Z-Tera 250 mg tablet RxNorm: 260792 1 Tablet(s) PO UD No Start Date 09/05/2016 Inactive z pack as directed Medication Administered Medication Codes Instructions Start Date Status Kenalog 40 mg/mL suspension for injection RxNorm: 5140941 1Milliliter 06/10/2018 Active Kenalog 40 mg/mL suspension for injection RxNorm: 0327945 1Milliliter 12/04/2017 No longer Active Kenalog 40 mg/mL suspension for injection RxNorm: 9358341 1Milliliter 06/03/2017 No longer Active Kenalog 40 mg/mL suspension for injection RxNorm: 5291824 Milliliter 11/28/2015 No longer Active Kenalog 40 mg/mL suspension for injection RxNorm: 9477219 Milliliter 06/19/2015 No longer Active Immunizations No Immunization data Assessments Condition Codes Effective Dates Other acute sinusitis ICD-10: J01.80 ICD-9: 461.8 06/10/2018 Other allergic rhinitis ICD-10: J30.89 ICD-9: 477.8 06/10/2018 Cough ICD-10: R05 ICD-9: 786.2 12/04/2017 Acute recurrent maxillary sinusitis ICD-10: J01.01 ICD-9: 461.0 12/04/2017 Impacted cerumen, bilateral ICD-10: H61.23 ICD-9: [...] 574.20 11/28/2014 Abdominal pain ICD-9: 789.00 11/28/2014 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/2015 Reason For Visit [...] CPT-4: J3301 11/28/2015 THER/PROPH/DIAG INJ SC/IM CPT-4: 54682 06/19/2015 TRIAMCINOLONE ACET INJ NOS CPT-4: J3301 06/19/2015 Vital Signs Date Vital 06/10/2018 Blood Pressure 1: 130/80 Code : 8480-6 BMI: 27.7 Code : 80321-2 Heart Rate 1 : 82 bpm Height: 5' SpO2: 96% Weight: 142 lbs 12/04/2017 Blood Pressure 1: 132/82 Code : 8480-6 BMI: 27.7 Code : 66561-9 Heart Rate 1 : 84 bpm Height: 5' SpO2: 98% Temperature: 36.6 (C) / 97.9 (F) Weight: 142 lbs 07/31/2017 Blood Pressure 1: 132/80 Code : 8480-6 BMI: 27.5 Code : 02943-9 Heart Rate 1 : 76 bpm Height: 5' SpO2: 99% Weight: 141 lbs 06/03/2017 Blood Pressure 1: 128/78 Code : 8480-6 BMI: 26.6 Code : 46228-2 Heart Rate 1 : 82 bpm Height: 5' SpO2: 98% Weight: 136 lbs 04/07/2017 Blood Pressure 1: 130/82 Code : 8480-6 BMI: 26.6 Code : 86952-3 Heart Rate 1 : 85 bpm Height: 5' SpO2: 99% Weight: 136 lbs 07/30/2016 Blood Pressure 1: 120/82 Code : 8480-6 BMI: 26.6 Code : 87338-9 Heart Rate 1 : 107 bpm Height: 5' SpO2: 96% Temperature: 38.4 (C) / 101.1 (F) Weight: 136 lbs 03/06/2016 Blood Pressure 1: 140/78 Code : 8480-6 BMI: 25.0 Code : 56480-3 Heart Rate 1 : 89 bpm Height: 5' SpO2: 98% Weight: 128 lbs 11/28/2015 Blood Pressure 1: 130/76 Code : 8480-6 BMI: 25.0 Code : 86246-1 Heart Rate 1 : 79 bpm Height: 5' SpO2: 98% Weight: 128 lbs 06/19/2015 Blood Pressure 1: 130/76 Code : 8480-6 BMI: 26.2 Code : 11256-0 Heart Rate 1 : 91 bpm Height: 5' SpO2: 98% Weight: 134 lbs 11/28/2014 Blood Pressure 1: 110/64 Code : 8480-6 BMI: 26.4 Code : 20795-2 Heart Rate 1 : 88 bpm Height: [...] Other allergic rhinitis[ICD10: J30.89] Jolene Dash MD, [facility] CPT-4: 23799 06/10/2018 ([id number]) 04359 EST. PATIENT, LEVEL III Diagnosis: Cough[ICD10: R05] Diagnosis: Acute recurrent maxillary sinusitis[ICD10: J01.01] Isis Dash MD, [facility] CPT-4: 60880 12/04/2017 [id number] EST. PATIENT, LEVEL IV Diagnosis: Impacted cerumen, bilateral[ICD10: H61.23] Diagnosis: Other allergic rhinitis[ICD10: J30.89] Jolene Dash MD, [facility] CPT-4: 74910 07/31/2017 03702 EST. PATIENT, LEVEL IV Diagnosis: Other acute sinusitis[ICD10: J01.80] Diagnosis: Acute laryngopharyngitis[ICD10: J06.0] Diagnosis: Other allergic rhinitis[ICD10: J30.89] Jolene Dash MD, [facility] CPT-4: 17055 06/03/2017 42018 EST. PATIENT, LEVEL III Diagnosis: Plantar fascial fibromatosis[ICD10: M72.2] Jolene Dash MD, [facility] CPT-4: 73841 04/07/2017 ([id number]) 69286 EST. PATIENT, LEVEL III Diagnosis: Cough[ICD10: R05] Diagnosis: Allergic rhinitis due to pollen[ICD10: J30.1] Alisha Dash MD, [facility] CPT-4: 63638 07/30/2016 90640 EST. PATIENT, LEVEL IV Diagnosis: Generalized abdominal pain[ICD10: R10.84] Diagnosis: Irritable bowel syndrome without diarrhea[ICD10: K58.9] Jolene Dash MD, [facility] CPT-4: 06893 03/06/2016 10929 EST. PATIENT, LEVEL IV Diagnosis: Other acute sinusitis[ICD10: J01.80] Diagnosis: Acute laryngopharyngitis[ICD10: J06.0] [facility] CPT-4: 89874 11/28/2015 64716 EST. 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 Call if symptoms do not show improvement. Allergies - chronic - recommended pt to use allergy medication as prescribed. Pt has been counseled as to the appropriate use of the medication. Pt to call if allergy symptoms are not controlled with the medication. If using nasal spray , instructions as follows: Nasal spray- use twice daily, one spray per nostril twice daily, after 30 minutes, rinse out nose with saline spray.. Use opposite hand per nostril to spray in the nasal steroid allergy spray. 06/10/2018 Patient Education: Patient Medication Summary Completed 06/10/2018 Patient Education: Sinusitis Completed 06/10/2018 Visit Plan: Sinusitis - Pt has acute infection - pain in face, maxillary region, Pt informed to use decongestant, RX given to patient, sinus rinses also recommended. Call if symptoms do not show improvement. 12/04/2017 Appointment: Isis Villa WPtel: [address] [place], [place] [id number] (15 min) Moderate 12/04/2017 Patient Education: Patient Medication Summary Completed 12/04/2017 Visit Plan: Cerumen Impaction - The impacted cerumen was removed with the use of the ear currette. The patient tolerated the procedure without incident and had improvement in hearing. The wax was removed by the practitioner due to the wax being more complicated to remove, and staff was needed to assist the removal of the wax by holding the ear, and keeping patient stabilized during the removal process. Allergies - chronic - recommended pt to use allergy medication as prescribed. Pt has been counseled as to the appropriate use of the medication. Pt to call if allergy symptoms are not controlled with the medication. If using nasal spray, instructions as follows: Nasal spray- use twice daily, one spray per nostril twice daily, after 30 minutes, rinse out nose with saline spray.. Use opposite hand per nostril to spray in the nasal steroid allergy spray.s. 07/31/2017 Appointment: Jolene Willard WPtel: [phone] [id number] (30 min) Complex 07/31/2017 Patient Education: Patient Medication Summary Completed 07/31/2017 Visit Plan: Sinusitis - Pt has acute infection - pain in face, maxillary region, Pt informed to use decongestant, RX given to patient, sinus rinses also recommended. Call if symptoms do not show improvement. URI - Pt advised to increase fluids, vitamin C. Discussed natural and expected course of this diagnosis and need to alert me if symptoms do not follow expected course , or if any worse. RX sent to patient's pharmacy. Allergies - chronic - recommended pt to use allergy medication as prescribed. Pt has been counseled as to the appropriate use of the medication. Pt to call if allergy symptoms are not controlled with the medication. If using nasal spray, instructions as follows: Nasal spray- use twice daily, one spray per nostril twice daily, after 30 minutes, rinse out nose with saline spray.. Use opposite hand per nostril to spray in the nasal steroid allergy spray. 06/03/2017 [facility] [phone] [id number] ([facility] 06/03/2017 Patient Education: Patient Medication Summary Completed 06/03/2017 Referral: Abdi Muhammad Referral Initiated 04/21/2017 Visit Plan: Plantar fasciitis- pt was educated that this is an inflammatory process, need to stretch the foot and reduce inflammation by using a frozen bottle of water or a tennis ball on the bottom of the foot at least three times a day until the pain is improved. 04/07/2017 App[facility]ment[facility] [phone] [facility] (15 min) Moderate 04/07/2017 Patient Education: Patient Medication Summary Completed 04/07/2017 Care Plan: Referral Order SNOMED-CT : [id number] Pending 04/07/2017 Visit Plan: Allergies - chronic - recommended pt to use allergy medication as prescribed. Pt has been counseled as to the appropriate use of the medication. Pt to call if allergy symptoms are not controlled with the medication. If using nasal spray, instructions as follows: Nasal spray- use twice daily, one spray per nostril twice daily, after 30 minutes, rinse out nose with saline spray.. Use opposite hand per nostril to spray in the nasal steroid allergy spray. 07/30/2016 Patient Education: Patient Medication Summary Completed 07/30/2016 Visit Plan: Abdominal pain - improving - will check labs, encourage fluids, pt is to notify clinic if symptoms do not improve, if they worsen, or with any changes or concerns. Jbwx-Gitp-Srfx syndrome - will order abdominal/renal US. 03/06/2016 Appointment: Isis Villa WPtel: [id number] [place] (15 min) Moderate 03/06/2016 Patient Education: Patient Medication Summary Completed 03/06/2016 Care Plan: Comp Metabolic Pending 03/06/2016 Care Plan: Cbc With Differential Pending 03/06/2016 Care Plan: Amylase Pending 03/06/2016 Care Plan: Lipase Pending 03/06/2016 Visit Plan: URI - Pt advised to increase fluids, vitamin C. Discussed natural and expected course of this diagnosis and need to alert me if symptoms do not follow expected course, or if any worse. RX sent to patient' s pharmacy. Sinusitis - Pt has acute infection - pain in face, maxillary region , Pt informed to use decongestant, RX given to patient, sinus rinses also recommended. Call if symptoms do not show improvement. 11/28/2015 Appointment: Isis Villa WPtel: [id number] [place] (15 min) Moderate 11/28/2015 Patient Education: Patient Medication Summary Completed 11/28/2015 Patient Education: Obesity Completed 11/28/2015 Visit Plan: Sinusitis - Pt has acute infection - pain in face, maxillary region, Pt informed to use decongestant, RX given to patient, sinus rinses also recommended. Call if symptoms do not show improvement. Cerumen Impaction - The impacted cerumen was removed with the use of the ear currette. The patient tolerated the procedure without incident and had improvement in hearing. The wax was removed by the practitioner due to the wax being more complicated to remove, and staff was needed to assist the removal of the wax by holding the ear, and keeping patient stabilized during the removal process. 06/19/2015 Appointment: (15 min) Moderate 06/19/2015 Patient Education: Patient Medication Summary Completed 06/19/2015 Visit Plan: Abdominal pain, Gall Stones - recommended pt to see Dr. Muhammad - plan on surgery DENIZ. Ewgw-Jxca-Dhuv syndrome - pt has need of follow up abdominal ultrasound - has hemangioma that has not had follow up as needed in the past 6 months. 11/28/2014 App[facility]ment: [facility]isha Dash [facility]el[id number] [place] [facility] New Patient 11/28/2014 Patient Education: Patient Medication Summary Completed 11/28/2014 Patient Education: Hypertension Completed 11/28/2014 Referral: Abdi Muhammad Referral Initiated Instructions Comment . Abdominal pain, Gall Stones - recommended pt to see Dr. Muhammad - plan on surgery DENIZ. Wyco-Dwbz-Rran syndrome - pt has need of follow up abdominal ultrasound - has hemangioma that has not had follow up as needed in the past 6 months. . Cerumen Impaction - The impacted cerumen was removed with the use of the ear currette. The patient tolerated the procedure without incident and had improvement in hearing. The wax was removed by the practitioner due to the wax being more complicated to remove, and staff was needed to assist the removal of the wax by holding the ear, and keeping patient stabilized during the removal process. Allergies - chronic - recommended pt to use allergy medication as prescribed. Pt has been counseled as to the appropriate use of the medication. Pt to call if allergy symptoms are not controlled with the medication. If using nasal spray, instructions as follows: Nasal spray- use twice daily, one spray per nostril twice daily, after 30 minutes, rinse out nose with saline spray.. Use opposite hand per nostril to spray in the nasal steroid allergy spray.s. KENALOG . Sinusitis - Pt has acute infection - pain in face, maxillary region, Pt informed to use decongestant, RX given to patient, sinus rinses also recommended. Call if symptoms do not show improvement. . Abdominal pain - improving - will check labs, encourage fluids, pt is to notify clinic if symptoms do not improve, if they worsen, or with any changes or concerns. Wfpi-Cezf-Tyma syndrome - will order abdominal/renal US. . Sinusitis - Pt has acute infection - pain in face, maxillary region, Pt informed to use decongestant, RX given to patient, sinus rinses also recommended. Call if symptoms do not show improvement. Allergies - chronic - recommended pt to use allergy medication as prescribed. Pt has been counseled as to the appropriate use of the medication. Pt to call if allergy symptoms are not controlled with the medication. If using nasal spray, instructions as follows: Nasal spray- use twice daily, one spray per nostril twice daily, after 30 minutes, rinse out nose with saline spray.. Use opposite hand per nostril to spray in the nasal steroid allergy spray. Will refer to Dr. Muhammad office for screening colonoscopy. . Plantar fasciitis- pt was educated that this is an inflammatory process, need to stretch the foot and reduce inflammation by using a frozen bottle of water or a tennis ball on the bottom of the foot at least three times a day until the pain is improved. . Allergies - chronic - recommended pt to use allergy medication as prescribed. Pt has been counseled as to the appropriate use of the medication. Pt to call if allergy symptoms are not controlled with the medication. If using nasal spray, instructions as follows: Nasal spray- use twice daily, one spray per nostril twice daily, after 30 minutes, rinse out nose with saline spray.. Use opposite hand per nostril to spray in the nasal steroid allergy spray. . Sinusitis - Pt has acute infection - pain in face, maxillary region, Pt informed to use decongestant, RX given to patient, sinus rinses also recommended. Call if symptoms do not show improvement. URI - Pt advised to increase fluids, vitamin C. Discussed natural and expected course of this diagnosis and need to alert me if symptoms do not follow expected course, or if any worse. RX sent to patient's pharmacy. Allergies - chronic - recommended pt to use allergy medication as prescribed. Pt has been counseled as to the appropriate use of the medication. Pt to call if allergy symptoms are not controlled with the medication. If using nasal spray, instructions as follows: Nasal spray- use twice daily, one spray per nostril twice daily, after 30 minutes, rinse out nose with saline spray.. Use opposite hand per nostril to spray in the nasal steroid allergy spray. Use swee Steroid shot given today. Will send antibiotics, Take zyrtec over the counter. Notify clinic if symptoms do not improve or if they worsen. . URI - Pt advised to increase fluids, vitamin C. Discussed natural and expected course of this diagnosis and need to alert me if symptoms do not follow expected course, or if any worse. RX sent to patient's pharmacy. Sinusitis - Pt has acute infection - pain in face, maxillary region, Pt informed to use decongestant, RX given to patient, sinus rinses also recommended. Call if symptoms do not show improvement. Use sweet oil drops in ear to soften wax. Steroid shot given today. Will send ABX Take zyrtec over the counter. Notify clinic if symptoms do not improve or if they worsen. . Sinusitis - Pt has acute infection - pain in face, maxillary region, Pt informed to use decongestant, RX given to patient, sinus rinses also recommended. Call if symptoms do not show improvement. Cerumen Impaction - The impacted cerumen was removed with the use of the ear currette. The patient tolerated the procedure without incident and had improvement in hearing. The wax was removed by the practitioner due to the wax being more complicated to remove, and staff was needed to assist the removal of the wax by holding the ear, and keeping patient stabilized during the removal process.
--- OUTSIDE RECORDS SUMMARY | 2018-06-13 22:14 | XMS REPORT | Continuity of Care Document ---
Author Author [facility] Organization [facility] Address Unknown Phone Unavailable Allergies Active Description Code Type Severity Reaction Onset Reported/Identified Relationship to Patient Clinical Status Yes erythromycin base [id number] Drug Allergy Unknown HIVES AND VOMIT 2014 Yes Sulfa (Sulfonamide Antibiotics) [id number] Drug Allergy Unknown HIVES AND VOMIT 11/30/2014 Medications There is no data. Problems Date Dx Coded Attending Type Code Diagnosis Diagnosed By 12/02/2014 JESSICA WISEMAN, ARIC Agustin Ot 574.00 CHOLELITH W AC CHOLECYST 12/02/2014 JESSICA WISEMAN, ARIC Agustin Ot 574.10 CHOLELITH W CHOLECYS NEC 01/06/2015 JESSICA WISEMAN, ARIC Agustin Ot 574.20 01/06/2015 JESSICA WISEMAN, ARIC Agustin Ot V72.63 01/06/2015 JESSICA WISEMAN, ARIC Agustin Ot V74.8 05/15/2015 YARA DC Ot Z13.9 07/10/2015 REYMUNDO WISEMAN, MARIA D Agustin Ot 574.20 07/10/2015 REYMUNDO WISEMAN, MARIA D Agustin Ot 759.89 07/10/2015 REYMUNDO WISEMAN, MARIA D Agustin Ot 789.00 07/10/2015 REYMUNDO WISEMAN, MARIA D Agustin Ot 793.6 07/10/2015 JESSICA WISEMAN, ARIC Agustin Ot 574.20 07/10/2015 JESSICA WISEMAN, ARIC Agustin Ot V72.63 07/10/2015 JESSICA WISEMAN, ARIC Agustin Ot V74.8 07/10/2015 YARA DC Ot Z13.9 07/25/2015 GARLAND WISEMAN, YUNG Brown Ot E04.1 07/25/2015 GARLAND WISEMAN, YUNG Brown Ot E04.1 01/26/2016 GARY GONZALES Ot E04.2 NONTOXIC MULTINODULAR GOITER 02/20/2016 GARY GONZALES TYPEWRITER RIBBON WINDER Ot E04.2 NONTOXIC MULTINODULAR GOITER 03/15/2016 LANA PLEITEZ PROGRESSIVE CARE NURSE Ot 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, N 03/15/2016 LANA PLEITEZ PROGRESSIVE CARE NURSE Ot 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, N 03/19/2016 LANA PLEITEZ PROGRESSIVE CARE NURSE Ot 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, N 03/22/2016 LANA PLEITEZ PROGRESSIVE CARE NURSE Ot K42.9 UMBILICAL HERNIA WITHOUT OBSTRUCTION OR 03/22/2016 LANA PLEITEZ PROGRESSIVE CARE NURSE Ot N28.1 CYST OF KIDNEY, ACQUIRED 03/22/2016 LANA PLEITEZ PROGRESSIVE CARE NURSE Ot 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, N 04/09/2016 LANA PLEITEZ PROGRESSIVE CARE NURSE Ot K42.9 UMBILICAL HERNIA WITHOUT OBSTRUCTION OR 04/09/2016 LANA PLEITEZ APRN Ot N28.1 CYST OF KIDNEY, ACQUIRED 06/20/2016 REYMUNDO WISEMAN, MARIA D Agustin Ot 574.20 CHOLELITHIASIS NOS 06/20/2016 REYMUNDO WISEMAN, MARIA D Agustin Ot 759.89 OTHER SPECIFIED ANOMALIES 06/20/2016 REYMUNDO WISEMAN, MARIA D Agustin Ot 789.00 ABDOMINAL PAIN, UNSPECIFIED SITE 06/20/2016 REYMUNDO WISEMAN, MARIA D Agustin Ot 793.6 NOSP (ABN) FINDINGS ON RADIOLOGICAL OT 06/20/2016 JESSICA WISEMAN, ARIC Agustin Ot 574.20 CHOLELITHIASIS NOS 06/20/2016 JESSICA WISEMAN, ARIC Agustin Ot V72.63 PRE-PROCEDURAL LABORATORY EXAMINATION 06/20/2016 JESSICA WISEMAN, ARIC Agustin Ot V74.8 SCREEN-BACTERIAL DIS NEC 06/20/2016 YARA DC Ot Z13.9 ENCOUNTER FOR SCREENING, UNSPECIFIED 06/20/2016 YUNG HAQUE MD Ot E04.1 NONTOXIC SINGLE THYROID NODULE 06/20/2016 YUNG HAQUE MD Ot E04.1 NONTOXIC SINGLE THYROID NODULE 06/20/2016 GARY GONZALES TYPEWRITER RIBBON WINDER Ot E04.2 NONTOXIC MULTINODULAR GOITER 06/20/2016 LANA PLEITEZ PROGRESSIVE CARE NURSE Ot 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, N 06/20/2016 LANA PLEITEZ PROGRESSIVE CARE NURSE Ot K42.9 UMBILICAL HERNIA WITHOUT OBSTRUCTION OR 06/20/2016 LANA PLEITEZ PROGRESSIVE CARE NURSE Ot N28.1 CYST OF KIDNEY, ACQUIRED 12/30/2016 REYMUNDO WISEMAN, MARIA D Agustin Ot 574.20 CHOLELITHIASIS NOS 12/30/2016 MARIA D DWYER MD Ot 759.89 OTHER SPECIFIED ANOMALIES 12/30/2016 REYMUNDO WISEMAN, MARIA D Agustin Ot 789.00 ABDOMINAL PAIN, UNSPECIFIED SITE 12/30/2016 MARIA D DWYER MD Ot 793.6 NOSP (ABN) FINDINGS ON RADIOLOGICAL OT 12/30/2016 JESSICA WISEMAN, ARIC Agustin Ot 574.20 CHOLELITHIASIS NOS 12/30/2016 JESSICA WISEMAN, ARIC Agustin Ot V72.63 PRE-PROCEDURAL LABORATORY EXAMINATION 12/30/2016 JESSICA WISEMAN, ARIC Agustin Ot V74.8 SCREEN-BACTERIAL DIS NEC 12/30/2016 YARA DC SAP GATHERER Ot Z13.9 ENCOUNTER FOR SCREENING, UNSPECIFIED 12/30/2016 YUNG HAQUE MD Ot E04.1 NONTOXIC SINGLE THYROID NODULE 12/30/2016 YUNG HAQUE MD Ot E04.1 NONTOXIC SINGLE THYROID NODULE 12/30/2016 GARY GONZALES TYPEWRITER RIBBON WINDER Ot E04.2 NONTOXIC MULTINODULAR GOITER 12/30/2016 LANA PLEITEZ PROGRESSIVE CARE NURSE Ot 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, N 12/30/2016 LANA PLEITEZ PROGRESSIVE CARE NURSE Ot K42.9 UMBILICAL HERNIA WITHOUT OBSTRUCTION OR 12/30/2016 LANA PLEITEZ PROGRESSIVE CARE NURSE Ot N28.1 CYST OF KIDNEY, ACQUIRED 01/08/2017 SAQIB WISEMAN, LORENZA Burns Ot E04.2 NONTOXIC MULTINODULAR GOITER 01/08/2017 SAQIB WISEMAN, LORENZA P Ot E04.2 NONTOXIC MULTINODULAR GOITER 01/12/2017 SAQIB WISEMAN, LORENZA Burns Ot E04.2 NONTOXIC MULTINODULAR GOITER 01/22/2017 SAQIB WISEMAN, LORENZA Burns Ot E04.2 NONTOXIC MULTINODULAR GOITER 09/12/2017 MARIA D DWYER MD Ot 574.20 CHOLELITHIASIS NOS 09/12/2017 MARIA D DWYER MD Ot 759.89 OTHER SPECIFIED ANOMALIES 09/12/2017 REYMUNDO WISEMAN, MARIA D Agustin Ot 789.00 ABDOMINAL PAIN, UNSPECIFIED SITE 09/12/2017 REYMUNDO WISEMAN, MARIA D Agustin Ot 793.6 NOSP (ABN) FINDINGS ON RADIOLOGICAL OT 09/12/2017 JESSICA WISEMAN, ARIC Agustin Ot 574.20 CHOLELITHIASIS NOS 09/12/2017 JESSICA WISEMAN, ARIC Agustin Ot V72.63 PRE-PROCEDURAL LABORATORY EXAMINATION 09/12/2017 JESSICA WISEMAN, ARIC Agustin Ot V74.8 SCREEN-BACTERIAL DIS NEC 09/12/2017 YARA DC SAP GATHERER Ot Z13.9 ENCOUNTER FOR SCREENING, UNSPECIFIED 09/12/2017 GARLAND WISEMAN, YUNG Brown Ot E04.1 NONTOXIC SINGLE THYROID NODULE 09/12/2017 GARLAND WISEMAN, YUNG Brown Ot E04.1 NONTOXIC SINGLE THYROID NODULE 09/12/2017 GARY GONZALES TYPEWRITER RIBBON WINDER Ot E04.2 NONTOXIC MULTINODULAR GOITER 09/12/2017 LANA PLEITEZ PROGRESSIVE CARE NURSE Ot 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, N 09/12/2017 LANA PLEITEZ PROGRESSIVE CARE NURSE Ot K42.9 UMBILICAL HERNIA WITHOUT OBSTRUCTION OR 09/12/2017 LANA PLEITEZ PROGRESSIVE CARE NURSE Ot N28.1 CYST OF KIDNEY, ACQUIRED 09/12/2017 SAQIB WISEMAN, LORENZA Burns Ot E04.2 NONTOXIC MULTINODULAR GOITER 09/15/2017 LANA PLEITEZ PROGRESSIVE CARE NURSE Ot 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, N 09/15/2017 LANA PLEITEZ APRN Ot Z80.51 FAMILY HISTORY OF MALIGNANT NEOPLASM OF 10/03/2017 LANA PLEITZE PROGRESSIVE CARE NURSE Ot 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, N 10/03/2017 LANA PLEITEZ PROGRESSIVE CARE NURSE Ot Z80.51 FAMILY HISTORY OF MALIGNANT NEOPLASM OF 12/18/2017 JESSICA WISEMAN, ARIC Agustin Ot Z01.818 ENCOUNTER FOR OTHER PREPROCEDURAL EXAMIN 12/18/2017 ARIC LOPEZ MD Ot Z12.11 ENCOUNTER FOR SCREENING FOR MALIGNANT NE 12/22/2017 ARIC LOPEZ MD Ot Z01.818 ENCOUNTER FOR OTHER PREPROCEDURAL EXAMIN 12/22/2017 ARIC LOPEZ MD Ot Z12.11 ENCOUNTER FOR SCREENING FOR MALIGNANT NE 12/23/2017 JESSICA WISEMAN, ARIC Agustin Ot Z01.818 ENCOUNTER FOR OTHER PREPROCEDURAL EXAMIN 12/23/2017 ARIC LOPEZ MD Ot Z12.11 ENCOUNTER FOR SCREENING FOR MALIGNANT NE 12/26/2017 TARAN SERRANO MD Ot K57.30 DVRTCLOS OF LG INT W/O PERFORATION OR AB 12/26/2017 TARAN SERRANO MD Ot K63.5 POLYP OF COLON 12/26/2017 TARAN SERRANO MD Ot Z12.11 ENCOUNTER FOR SCREENING FOR MALIGNANT NE 12/30/2017 TARAN SERRANO MD Ot K57.30 DVRTCLOS OF LG INT W/O PERFORATION OR AB 12/30/2017 ATRAN SERRANO MD Ot K63.5 POLYP OF COLON 12/30/2017 TARAN SERRANO MD Ot Z12.11 ENCOUNTER FOR SCREENING FOR MALIGNANT NE 12/30/2017 TARAN SERRANO MD Ot K57.30 DVRTCLOS OF LG INT W/O PERFORATION OR AB 12/30/2017 TARAN SERRANO MD Ot K63.5 POLYP OF COLON 12/30/2017 TARAN SERRANO MD Ot Z12.11 ENCOUNTER FOR SCREENING FOR MALIGNANT NE 01/27/2018 GARY GONZALES Ot E04.2 NONTOXIC MULTINODULAR GOITER 02/11/2018 GARY GONZALES Ot E04.2 NONTOXIC MULTINODULAR GOITER Procedures There is no data. Results There is no data. Encounters ACCT No. Visit Date/Time Discharge Status Pt. Type Provider Facility Loc./Unit Complaint [id number] 01/26/2018 07:55:00 01/26/2018 23:59:59 CLS Outpatient GARY GONZALES [facility] RAD MULTINODULAR GOITER [id number] 12/26/2017 07:16:00 12/26/2017 09:40:00 DIS Outpatient TARAN SERRANO MD [facility] ENDO SCREENING [id number] 12/22/2017 08:30:00 12/22/2017 10:22:00 DIS Outpatient ARIC LOPEZ MD [facility] PREOP COLONOSCOPY [id number] 09/15/2017 12:53:00 09/15/2017 23:59:59 CLS Outpatient LANA PLEITEZ PROGRESSIVE CARE NURSE [facility] RAD 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 [id number] 01/06/2017 09:19:00 01/06/2017 23:59:59 CLS Outpatient LORENZA CERRATO MD [facility] RAD THYROID NODULE [id number] 03/21/2016 08:05:00 03/21/2016 23:59:59 CLS Outpatient LANA PLEITEZ PROGRESSIVE CARE NURSE [facility] RAD INDETERMINATE LESION IN LT KIDNEY [id number] 03/13/2016 13:14:00 03/13/2016 23:59:59 CLS Outpatient LANA PLEITEZ PROGRESSIVE CARE NURSE [facility] RAD NANDO RAUL KASSIDY SYNDROME [id number] 01/24/2016 13:06:00 01/24/2016 23:59:59 CLS Outpatient GARY GONZALES TYPEWRITER RIBBON WINDER [facility] RAD MULTINODULAR GOITER [id number] 07/11/2015 11:02:00 07/11/2015 23:59:59 CLS Outpatient YUNG HAQUE MD [facility] CARD ENLARGED THYROID LEFT SIDE [id number] 07/10/2015 08:05:00 07/10/2015 23:59:59 CLS Outpatient YUNG HAQUE MD [facility] RAD 1 CM NODULE LT SIDE [id number] 04/27/2015 07:59:00 04/27/2015 23:59:59 CLS Outpatient YARA DC SAP GATHERER [facility] RAD GENETIC SCREENING [id number] 12/01/2014 09:50:00 12/02/2014 10:30:00 DIS Outpatient ARIC LOPEZ MD [facility] SDC GALLSTONES [id number] 11/30/2014 08:49:00 11/30/2014 23:59:59 CLS Outpatient ARIC LOPEZ MD [facility] PREOP GALLSTONES [id number] 10/08/2013 09:40:00 10/08/2013 23:59:59 CLS Outpatient MARIA D DWYER MD [facility] RAD GENETIC SCREENING [id number] 02/13/2018 14:59:00 02/13/2018 23:59:00 DIS Outpatient YUNG HAQUE [id number] 01/09/2017 14:28:00 01/09/2017 23:59:00 DIS Outpatient MAX MENDOZA
--- OUTSIDE RECORDS SUMMARY | 2018-06-13 22:14 | XMS REPORT | CCD ---
Author Author Alisha Dash MD, [facility] Address [address] [place] [address] Phone Care Team Providers Care Shooter Helper Name Role Phone PP Unavailable CCM Unavailable Summary Purpose Interface Exchange Insurance Providers Payer name Policy type / Coverage type Covered democrat ID Effective Begin Date Effective End Date [facility] [place] [id number] Unknown Unknown Family history Brother Diagnosis Age At Onset genetic disease Unknown Social History Social History Element Codes Description Effective Dates Marital status Unknown 07/30/2016 Number of children Unknown 2 11/28/2014 Employment Unknown Currently employed [employer] 11/28/[address]: [id number] Has never smoked or chewed tobacco 11/28/2014 Alcohol history Unknown occasionally drinks alcohol wine 11/28/2014 Allergies, Adverse Reactions, Alerts Allergies, Adverse Reactions, Alerts data not found Past Medical History Illness Codes Condition Status Onset Date Resolved Date Impacted cerumen, bilateral ICD-9: 380.4 ICD-10: H61.23 Active 07/31/2017 Unknown Other allergic rhinitis ICD-9: 477.8 ICD-10: J30.89 Active 06/03/2017 Unknown Acute laryngopharyngitis ICD-9: 465.0 ICD-10: J06.0 Active 11/27/2015 Unknown Other acute sinusitis ICD-9: 461.8 ICD-10: J01.80 Active 11/27/2015 Unknown Plantar fascial fibromatosis ICD-9: 728.71 ICD-10: M72.2 Active 04/07/2017 Unknown Allergic rhinitis due to pollen ICD-9: 477.9 ICD-10: J30.1 Active 07/30/2016 Unknown Cough ICD-9: 786.2 ICD-10: R05 Active 07/30/2016 Unknown Generalized abdominal pain ICD-9: 789.07 ICD-10: R10.84 Active 03/05/2016 Unknown Irritable bowel syndrome without diarrhea ICD-9: 564.1 ICD-10: K58.9 Active 03/05/2016 Unknown Acute recurrent maxillary sinusitis ICD-9: 461.0 ICD-10: J01.01 Active 06/18/2015 Unknown Impacted cerumen, right ear ICD-9: 389.8 ICD-10: H61.21 Active 06/18/2015 Unknown Abdominal pain ICD-9: 789.00 Active 11/27/2014 Unknown 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 11/27/2014 Unknown Gallstones ICD-9: 574.20 Active 11/27/2014 Unknown Problems Condition Codes Effective Dates Condition Status Impacted cerumen, bilateral ICD-9: 380.4 ICD-10: H61.23 07/31/2017 Active Other allergic rhinitis ICD-9: 477.8 ICD-10: J30.89 06/03/2017 Active Acute laryngopharyngitis ICD-9: 465.0 ICD-10: J06.0 11/27/2015 Active Other acute sinusitis ICD-9: 461.8 ICD-10: J01.80 11/27/2015 Active Plantar fascial fibromatosis ICD-9: 728.71 ICD-10: M72.2 04/07/2017 Active Allergic rhinitis due to pollen ICD-9: 477.9 ICD-10: J30.1 07/30/2016 Active Cough ICD-9: 786.2 ICD-10: R05 07/30/2016 Active Generalized abdominal pain ICD-9: 789.07 ICD-10: R10.84 03/05/2016 Active Irritable bowel syndrome without diarrhea ICD-9: 564.1 ICD-10: K58.9 03/05/2016 Active Acute recurrent maxillary sinusitis ICD-9: 461.0 ICD-10: J01.01 06/18/2015 Active Impacted cerumen, right ear ICD-9: 389.8 ICD-10: H61.21 06/18/2015 Active Abdominal pain ICD-9: 789.00 11/27/2014 Active Hjkn-Uhhx-Wjnx syndrome ICD-9: 759.89 11/27/2014 Active Gallstones ICD-9: 574.20 11/27/2014 Active Medications Medication Codes Instructions Start Date Stop Date Status Fill Instructions Kenalog 40 mg/mL suspension for injection RxNorm: 0545504 1 Milliliter(s) Inj 06/03/2017 06/03/2017 Inactive Zithromax Z-Tera 250 mg tablet RxNorm: 577578 1 Tablet(s) PO UD 06/03/2017 07/30/2017 Inactive z pack as directed Vimovo 500 mg-20 mg tablet,immediate and delay release RxNorm: 830328 1 Tablet(s) PO BID as needed 04/07/2017 04/09/2017 Inactive amoxicillin 500 mg capsule RxNorm: 844526 1 Capsule(s) PO TID 11/11/2016 11/17/2016 Inactive Zithromax Z-Tera 250 mg tablet RxNorm: 196631 1 Tablet(s) PO UD 09/06/2016 11/10/2016 Inactive z pack as directed hyoscyamine 0.125 mg sublingual tablet RxNorm: 8249147 1 Tablet(s) SL TID as needed 03/06/2016 03/10/2016 Inactive amoxicillin 500 mg capsule RxNorm: 531133 1 Capsule(s) PO TID 11/28/2015 12/07/2015 Inactive Kenalog 40 mg/mL suspension for injection RxNorm: 7913056 Milliliter(s) Inj 11/28/2015 11/28/2015 Inactive Kenalog 40 mg/mL suspension for injection RxNorm: 2593407 Milliliter(s) Inj 06/19/2015 06/19/2015 Inactive amoxicillin 500 mg capsule RxNorm: 149573 1 Capsule(s) PO TID 06/19/2015 06/28/2015 Inactive estradiol 1 mg tablet RxNorm: 995758 1 Tablet(s) PO daily No Start Date Active medroxyprogesterone 2.5 mg tablet RxNorm: 6579718 Tablet(s) PO daily No Start Date Active Zithromax Z-Tera 250 mg tablet RxNorm: 577044 1 Tablet(s) PO UD No Start Date 09/05/2016 Inactive z pack as directed Medication Administered Medication Codes Instructions Start Date Status Kenalog 40 mg/mL suspension for injection RxNorm: 0501503 1Milliliter 06/03/2017 No longer Active Kenalog 40 mg/mL suspension for injection RxNorm: 4042843 Milliliter 11/28/2015 No longer Active Kenalog 40 mg/mL suspension for injection RxNorm: 6552379 Milliliter 06/19/2015 No longer Active Immunizations No Immunization data Assessments Condition Codes Effective Dates Impacted cerumen, bilateral ICD-10: H61.23 ICD-9: 380.4 07/31/2017 Other allergic rhinitis ICD-10: J30.89 ICD-9: 477.8 07/31/2017 Other acute sinusitis ICD-10: J01.80 ICD-9: 461.8 06/03/2017 Acute laryngopharyngitis ICD-10: J06.0 ICD-9: 465.0 06/03/2017 Plantar fascial fibromatosis ICD-10: M72.2 ICD-9: 728.71 04/07/2017 Cough ICD-10: R05 ICD-9: 786.2 07/30/2016 Allergic rhinitis due to pollen ICD-10: J30.1 ICD-9: 477.9 07/30/2016 Generalized abdominal pain ICD-10: R10.84 ICD-9: 789.07 03/06/2016 Irritable bowel syndrome without diarrhea ICD-10: K58.9 ICD-9: 564.1 03/06/2016 Acute recurrent maxillary sinusitis ICD-10: J01.01 ICD-9: 461.0 06/19/2015 Impacted cerumen, right ear ICD-10: H61.21 ICD-9: 389.8 06/19/2015 Gallstones ICD-9: 574.20 11/28/2014 Abdominal pain ICD-9: 789.00 11/28/2014 Vjjy-Lztn-Wudm syndrome ICD-9: 759.89 05/2015 Reason For Visit Reason For Visit Effective Dates Notes earache 07/31/2017 cough 06/03/2017 foot pain 04/07/2017 cough 07/30/2016 headache 03/06/2016 cough 11/28/2015 sinus congestion 06/19/2015 abdominal pain 11/28/2014 Results No Results data Review of Systems System Result Effective Dates Constitutional recent illness 07/31/2017 Constitutional No chills [...] Date TRIAMCINOLONE ACET INJ NOS CPT-4: J3301 06/03/2017 TRIAMCINOLONE ACET INJ NOS CPT-4: J3301 11/28/2015 THER/PROPH/DIAG INJ SC/IM CPT-4: 90842 06/19/2015 TRIAMCINOLONE ACET INJ NOS CPT-4: J3301 06/19/2015 Vital Signs Date Vital 07/31/2017 Blood Pressure 1: 132/80 Code : 8480-6 BMI: 27.5 Code : 63418-4 Heart Rate 1 : 76 bpm Height: 5' SpO2: 99% Weight: 141 lbs 06/03/2017 Blood Pressure 1: 128/78 Code : 8480-6 BMI: 26.6 Code : 53633-6 Heart Rate 1 : 82 bpm Height: 5' SpO2: 98% Weight: 136 lbs 04/07/2017 Blood Pressure 1: 130/82 Code : 8480-6 BMI: 26.6 Code : 84901-6 Heart Rate 1 : 85 bpm Height: 5' SpO2: 99% Weight: 136 lbs 07/30/2016 Blood Pressure 1: 120/82 Code : 8480-6 BMI: 26.6 Code : 96820-0 Heart Rate 1 : 107 bpm Height: 5' SpO2: 96% Temperature: 38.4 (C) / 101.1 (F) Weight: 136 lbs 03/06/2016 Blood Pressure 1: 140/78 Code : 8480-6 BMI: 25.0 Code : 38485-2 Heart Rate 1 : 89 bpm Height: 5' SpO2: 98% Weight: 128 lbs 11/28/2015 Blood Pressure 1: 130/76 Code : 8480-6 BMI: 25.0 Code : 44695-4 Heart Rate 1 : 79 bpm Height: 5' SpO2: 98% Weight: 128 lbs 06/19/2015 Blood Pressure 1: 130/76 Code : 8480-6 BMI: 26.2 Code : 93460-9 Heart Rate 1 : 91 bpm Height: 5' SpO2: 98% Weight: 134 lbs 11/28/2014 Blood Pressure 1: 110/64 Code : 8480-6 BMI: 26.4 Code : 92470-9 Heart Rate 1 : 88 bpm Height: 5' Weight: 135 lbs Functional Status No Functional Status data History of Present Illness Symptom Name Status Result Effective Date Notes earache Location right ear 07/31/2017 None earache [...] data Encounters Encounter Performer Location Codes Date 79943 EST. PATIENT, LEVEL IV Diagnosis: Impacted cerumen, bilateral[ICD10: H61.23] Diagnosis: Other allergic rhinitis[ICD10: J30.89] Jolene Dash MD, [facility] CPT-4: 54174 07/31/2017 93414 EST. PATIENT, LEVEL IV Diagnosis: Other acute sinusitis[ICD10: J01.80] Diagnosis: Acute laryngopharyngitis[ICD10: J06.0] Diagnosis: Other allergic rhinitis[ICD10: J30.89] Jolene Dash MD, [facility] CPT-4: 55483 06/03/2017 78838 EST. PATIENT, LEVEL III Diagnosis: Plantar fascial fibromatosis[ICD10: M72.2] Jolene Dash MD, [facility] CPT-4: 30144 04/07/2017 ([id number]) 58271 EST. PATIENT, LEVEL III Diagnosis: Cough[ICD10: R05] Diagnosis: Allergic rhinitis due to pollen[ICD10: J30.1] Alisha Dash MD, [facility] CPT-4: 96765 07/30/2016 42433 EST. PATIENT, LEVEL IV Diagnosis: Generalized abdominal pain[ICD10: R10.84] Diagnosis: Irritable bowel syndrome without diarrhea[ICD10: K58.9] Jolene Dash MD, [facility] CPT-4: 30636 03/06/2016 93643 EST. PATIENT, LEVEL IV Diagnosis: Other acute sinusitis[ICD10: J01.80] Diagnosis: Acute laryngopharyngitis[ICD10: J06.0] Jolene Dash MD, [facility] CPT-4: 42488 11/28/2015 41245 EST. PATIENT, LEVEL III Diagnosis: Acute recurrent maxillary sinusitis[ICD10: J01.01] Diagnosis: Impacted cerumen, right ear[ICD10: H61.21] [facility] CPT-4: 87979 06/19/2015 ([id number]) OFFICE VISIT, NEW - LEVEL 4 Diagnosis: Gallstones[ICD9: 574.20] Diagnosis: Abdominal pain[ICD9: 789.00] Diagnosis: Ffhs-Msjc-Wrad syndrome[ICD9: 759.89] [facility] CPT-4: 13927 11/28/2014 Plan of Care Planned Activity Notes Codes Status Date Visit Plan: Cerumen Impaction - The impacted [...] allergy spray.s. 07/31/2017 Appointment: Jolene Willard WPtel: [address] [place], [place] [phone] (30 min) [facility] 07/31/2017 Patient Education: Patient Medication Summary Completed [...] allergy spray. 06/03/2017 App[facility]ment[facility] ([facility] Complex 06/03/2017 Patient Education: [...] is improved. 04/07/2017 Appointment: [facility] Willard [phone] (15 min) Moderate 04/07/2017 Patient Education: Patient Medication Summary Completed 04/07/2017 Care Plan: Referral Order SNOMED-CT : [id number] Pending 04/07/2017 Visit Plan: Allergies - chronic [...] worsen, or with any changes or concerns. Uerm-Cvpv-Jukg syndrome - will order abdominal/renal US. 03/06/2016 Appointment: Isis Villa WPtel[phone] [place] (15 min) Moderate 03/06/2016 Patient Education: [...] show improvement. 11/28/2015 Appointment: Isis Villa WPtel: [address] [phone] [place] (15 min) Moderate 11/28/2015 Patient Education: [...] Dr. Muhammad - plan on surgery DENIZ. Tfje-Xkcn-Wraq syndrome - pt has need of follow up abdominal ultrasound - has hemangioma that has not had follow up as needed in the past 6 months. 11/28/2014 Appointment: Alisha Dash WPtel: [facility] [place] (S) New Patient 11/28/2014 Patient Education: Patient Medication Summary Completed 11/28/2014 Patient Education: Hypertension Completed 11/28/2014 Referral: Abdi Muhammad Referral Initiated Instructions Comment . Abdominal pain, Gall Stones - recommended pt to see Dr. Muhammad - plan on surgery DENIZ. Hmsv-Rtcb-Qsxo syndrome - pt has need of follow [...] spray in the nasal steroid allergy spray.s. . Abdominal pain - improving - will check labs, encourage fluids, pt is to notify clinic if symptoms do not improve, if they worsen, or with any changes or concerns. Ojdc-Yves-Itoj syndrome - will order abdominal/renal US. Will refer to Dr. Muhammad office for [...]
[2018-06-13 22:45] VITALS: BP 183/96
[2018-06-13 22:55] VITALS: BP 146/84
[2018-06-13] MEDS ORDERED: LORazepam 0.5 MG (ATIVAN) TABLET PO PRN (23:00)
[2018-06-13] MEDS ORDERED: ACETAMINOPHEN 500 MG TAB (TYLENOL) PO PRN (23:00)
[2018-06-13] MEDS ORDERED: ONDANSETRON 4 MG/2 ML (SDV) Z0FRAN IV PRN (23:00)
[2018-06-13] MEDS ORDERED: CATHETER FLUSH 10 ML SYR IV PRN (23:15)
[2018-06-13] MEDS ORDERED: morphine INJ 4 MG/ML 1 ML (VIAL/SYRINGE) IV PRN (23:15)
[2018-06-14] VITALS (9 sets, daily range): BP systolic 127–157; BP diastolic 69–99
[2018-06-14] MEDS: CATHETER FLUSH 10 ML SYR IV SCH ×2 (05:00→14:18)
[2018-06-14 07:14] LABS: BASOPHILS % (AUTO) 0 % (0-10); EOSINOPHILS # (AUTO) 0.2 10^3/uL (0.0-0.3); EOSINOPHILS % (AUTO) 2 % (0-10); HEMATOCRIT 41 % (35-52); HEMOGLOBIN 13.6 G/DL (11.5-16.0); LYMPHOCYTES # (AUTO) 2.1 X 10^3 (1.0-4.0); LYMPHOCYTES % (AUTO) 25 % (12-44); MEAN CORPUSCULAR HEMOGLOBIN 30 PG (25-34); MEAN CORPUSCULAR HGB CONC 33 G/DL (32-36); MEAN CORPUSCULAR VOLUME 89 FL (80-99); MEAN PLATELET VOLUME 8.7 FL (7.4-10.4); MONOCYTES # (AUTO) 0.6 X 10^3 (0.0-1.0); MONOCYTES % (AUTO) 7 % (0-12); NEUTROPHILS # (AUTO) 5.5 X 10^3 (1.8-7.8); NEUTROPHILS % (AUTO) 65 % (42-75); PLATELET COUNT 387 10^3/uL (130-400); RED BLOOD COUNT 4.59 10^6/uL (4.35-5.85); RED CELL DISTRIBUTION WIDTH 13.3 % (10.0-14.5); WHITE BLOOD COUNT 8.4 10^3/uL (4.3-11.0)
[2018-06-14 07:30] LABS: BUN/CREATININE RATIO 17; CALCIUM 9.2 MG/DL (8.5-10.1); CARBON DIOXIDE 21 MMOL/L (21-32); CHLORIDE 109 MMOL/L (98-107); CHOLESTEROL 155 MG/DL (< 200); CREATININE SERUM 0.72 MG/DL (0.60-1.30); GFR ESTIMATED > 60; GLUCOSE 98 MG/DL (70-105); HDL CHOLESTEROL 70 MG/DL (40-60); POTASSIUM 3.9 MMOL/L (3.6-5.0); SODIUM 141 MMOL/L (135-145); TRIGLYCERIDES 86 MG/DL (<150); VLDL CHOLESTEROL 17 MG/DL (5-40)
[2018-06-14] MEDS ORDERED: FLU QUADRIvalent (5+ YOA) 2018-2019 (AFLURIA) 0.5 ML IM ONE (09:00)
[2018-06-14] MEDS ORDERED: lisINopril 5 MG (PRINIVIL) TABLET PO SCH (09:00)
[2018-06-14] MEDS ORDERED: meTOprolol TARTRATE 25 MG (LOPRESSOR) TABLET PO SCH (09:00)
[2018-06-14] MEDS ORDERED: ASPIRIN E.C. 81 MG (ECOTRIN) TAB PO SCH (09:00)
--- NOTE | 2018-06-14 11:54 | Short Stay Summary-Hospitalist ---
History of Present Illness HPI/Chief Complaint CC: Chest pain HPI: This is a 62yoWF clinic patient of Dr Dash who presented to the ER with intermittent chest pain which radiated to the left neck and arm and had worsened to the point she was concerned so she went to the ER. EKG and labs were normal but she was found to have risk factors in need of stratification. Pt did report that she has had a lot of heartburn since choly [address] Muhammad and takes a lot of TUMS at home but has worsened recently to occur all the time. I have placed her on PPI and Carafate in the meantime to treat empirically for gastritis/esophagitis. Source: patient, RN/MD Exam Limitations: no limitations Date Seen 06/14/18 Time Seen by a Provider: 11:15 Attending Physician Chio Dunn DO PCP Alisha Dash MD Referring Physician Date of Admission Jun 13, 2018 at 22:08 Home Medications & Allergies Home Medications Reviewed patient Home Medication Reconciliation performed by pharmacy medication reconciliations certified histologic technician and/or nursing. Patients Allergies have been reviewed. 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) Alcohol Use: Denies Use Alcohol Beverage of Choice: Beer Recreational Drug Use: No Smoking Status: Never a Smoker 2nd Hand Smoke Exposure: No Physical Abuse Screen: No Sexual Abuse: No Recent Foreign Travel: No Contact w/other who traveled: No Recent Hopitalizations: No Recent Infectious Disease Expo: No Immunizations Up To Date Date of Influenza Vaccine: Apr 13, 2018 Seasonal Allergies Seasonal Allergies: Yes Past Medical History Surgeries: Section, Gallbladder Currently Using CPAP: No Currently Using BIPAP: No Reproductive: No Gastrointestinal: Gall Bladder Disease Loss of Vision: Bilateral History of Blood Disorders: No Adverse Reaction to Blood Daniel: No Family History FH: breast cancer in first degree relative 19 MOTHER Review of Systems Constitutional: see HPI EENTM: no symptoms reported Respiratory: no symptoms reported Cardiovascular: chest pain Gastrointestinal: heartburn Genitourinary: no symptoms reported Musculoskeletal: no symptoms reported Skin: no symptoms reported Psychiatric/Neurological: No Symptoms Reported All Other Systems Reviewed Negative Unless Noted: Yes Physical Exam Physical Exam Vital Signs Vital Signs - First Documented Capillary Refill : Less Than 3 Seconds Height, Weight, BMI Height: 5'0.00" Weight: 139lbs. 9.0oz. 63.450661df; 27.3 BMI Method:Stated General Appearance: No Apparent Distress, WD/WN Eyes: Bilateral Eye Normal Inspection, Bilateral Eye PERRL HEENT: PERRL/EOMI, TMs Normal, Normal ENT Inspection, Pharynx Normal Neck: Full Range of Motion, Normal Inspection, Non Tender, Supple, Carotid Bruit Respiratory: Chest Non Tender, Lungs Clear, Normal Breath Sounds, No Accessory Muscle Use, No Respiratory Distress Cardiovascular: Regular Rate, Rhythm, No Edema, No Gallop, No JVD, No Murmur, Normal Peripheral Pulses Gastrointestinal: Normal Bowel Sounds, No Organomegaly, No Pulsatile Mass, Non Tender, Soft Back: Normal Inspection, No CVA Tenderness, No Vertebral Tenderness Extremity: Normal Capillary Refill, Normal Inspection, Normal Range of Motion, Non Tender, No Calf Tenderness, No Pedal Edema Neurologic/Psychiatric: Alert, Oriented x3, No Motor/Sensory Deficits, Normal Mood/Affect Skin: Normal Color, Warm/Dry Lymphatic: No Adenopathy Results Results/Procedures Labs Laboratory Tests 06/13/18 20:45 06/14/18 07:04 Patient resulted labs reviewed. Short Stay Diagnosis Discharge Diagnosis-Short Stay Admission Diagnosis Assessment: Chest pain in 62yo Heartburn Final Discharge Diagnosis Chest pain GERD Conclusion Plan PPI Carafate ECHO and EST as outpt per Cardiology Diagnosis/Problems Diagnosis/Problems (1) Chest pain at rest Status: Acute (2) GERD (gastroesophageal reflux disease) Status: Acute Clinical Quality Measures AMI/AHF: ASA po Prior to arrival: No DVT/VTE Risk/Contraindication: Risk Factor Score Per Nursin RFS Level Per Nursing on Admit: 2=Moderate CHIO DUNN DO Jun 14, 2018 11:54
[2018-06-14] MEDS ORDERED: PANTOPRAZOLE 40 MG (PROTONIX) TAB PO NR (12:19)
[2018-06-14] MEDS ORDERED: SUCRALFATE 1 GM (CARAFATE) TAB PO NR (12:20)
[2018-06-14] MEDS ORDERED: SUCR1TAB PO (13:17)
[2018-06-14] MEDS ORDERED: OMEP40CA36 PO (13:17)
--- NOTE | 2018-06-14 13:20 | Consultation-Cardiology ---
HPI-Cardiology Cardiology Consultation: Date of Consultation 06/14/18 Date of Admission Attending Physician Chio Dunn DO Admitting Physician Alisha Dash MD Consulting Physician Vamsi BLAIR MD HPI: Time Seen by a Provider: 12:30 Chief Complaint: Chest pain This is a 62-year-old lady with no significant past medical or cardiac history. She denies diabetes, hypertension, hyperlipidemia, active smoking, premature family history of CAD. She presents with prolonged episode of chest pain. No shortness of breath, no syncope, near-syncope, palpitation. Chest pain was substernal with radiation to the left arm. Lasted for around 20-30 minutes. Spontaneous relief. No significant exacerbating or relieving factors. Review of Systems-Cardiology Review of Systems Constitutional: As described under HPI; No As described under HPI, No no symptoms reported, No chills, No fever, No lightheadedness Eyes: No As described under HPI, No no symptoms reported, No blindness, No blurred vision, No contact lenses, No drainage, No decreased acuity, No foreign body sensation, No pain, No vision change Ears/Nose/Throat: No As described under HPI, No no symptoms reported, No chronic hearing loss, No ear discharge, No ear pain, No nasal drainage, No ulcerations Respiratory: No no symptoms reported; As described under HPI; No As described under HPI, No cough, No orthopnea, No shortness of breath, No SOB with excertion Cardiovascular: No no symptoms reported; As described under HPI; No As described under HPI, No chest pain, No edema, No irregular heart rate, No lightheadedness, No palpitations Gastrointestinal: No no symptoms reported, No As described under HPI, No abdomen distended, No abdominal pain, No blood streaked bowels, No constipation , No diarrhea, No nausea, No vomiting, No stool coloration changes Genitourinary: No As described under HPI, No burning, No dysuria, No discharge , No frequency, No flank pain, No hematuria, No urgency : Yes : No Musculoskeletal: No no symptoms reported, No As describe under HPI, No back pain, No gout, No joint pain, No joint swelling, No muscle pain, No muscle stiffness, No neck pain, No other Skin: No no symptoms reported, No As described under HPI, No change in color, No change in hair/nails, No dryness, No lesions, No lumps, No rash, No other, No skin related problems, No ulcerations, No rash on exposed areas, No ulcerations on exposed areas Psychiatric/Neurological: No anxiety, No depression, No seizure, No focal weakness, No syncope Hematologic: No bleeding abnormalities BDQ-Dsiyoq-Isgmql Hx Patient Social History Alcohol Use: Denies Use Recreational Drug Use: No Smoking Status: Never a Smoker 2nd Hand Smoke Exposure: No Recent Foreign Travel: No Recent Infectious Disease Expo: No Hospitalization with Isolation: Denies Physical Abuse Screen: No Sexual Abuse: No Immunizations Up To Date Date of Influenza Vaccine: Apr 13, 2018 Past Medical History PMH As described under Assessment. Family Medical History Family History: FH: breast cancer in first degree relative 19 MOTHER Allergies and Home Medications Allergies Coded Allergies: Sulfa (Sulfonamide Antibiotics) (Unverified Allergy, Unknown, HIVES AND VOMITING, 11/30/14) erythromycin base (Unverified Allergy, Unknown, HIVES AND VOMITING, ) Home Medications Estradiol 1 Mg Tablet, 1 MG PO DAILY, (Reported) Medroxyprogesterone Acetate 2.5 Mg Tablet, 2.5 MG PO HS, (Reported) Omeprazole 40 Mg Capsule.dr, 40 MG PO DAILY Prescribed by: CHIO DUNN on 06/14/181316 Sucralfate 1 Gm Tablet, 1 GM PO ACHS Prescribed by: CHIO DUNN on 06/14/181316 Patient Home Medication List Home Medication List Reviewed: Yes Physical Exam-Cardiology Physical Exam Vital Signs/I&O 06/14/18 06/14/18 06/14/18 07:00 08:00 08:00 Temp 98.4 Pulse 79 98 Resp 20 B/P (MAP) 127/84 (98) Pulse Ox 97 O2 Delivery Room Air Room Air Capillary Refill : Less Than 3 Seconds Constitutional: appears stated age, AAO x 3; No apparent distress; well- developed, well-nourished HEENT: PERRL; No normal ENT inspection, No TMs normal, No pharynx normal, No scleral icterus (R), No scleral icterus (L), No pale conjunctivae (R), No pale conjunctivae (L), No photophobia, No TM abnormal (R), No TM abnormal (L), No pharyngeal erythema, No tonsillar exudate, No other, No discharge, No EOMI; hearing is well preserved; No hard of hearing; oral hygience is good; No ulceration, No xanthelasmas are seen Neck: No non-tender, No full range of motion, No supple, No normal inspection, No carotid bruit, No limited range of motion, No lymphadenopathy (R), No lymphadenopathy (L), No tender lateral, No tender midline, No thyromegaly, No other; carotid pulses are 2 + bilaterally; No with good upstrokes Respiratory: No accessory muscle use, No respiratory distress, No chest tender , No chest expansion is symmetric; chest is bilaterally symmetric; No lungs clear to percussion; lungs clear to auscultation; No crackles, No rhonchi, No rales, No stridor, No wheezing, No pleural rub, No other Cardiovascular: regular rate-rhythm; No irregularly irregular, No extra beats, No parasternal heave is noted, No JVD, No edema, No bradycardia, No tachycardia , No point of maximal impulse, No cardiac thrills are palpable; S1 and S2; No gallop/S3, No gallop/S4, No diastolic murmur, No systolic murmur, No friction rub, No click, No other Gastrointestinal: No tender, No soft, No round, No distended, No pulsatile mass , No organomegaly, No guarding, No rebound, No tenderness, No hernia, No mass, No audible bowel sounds, No abnormal bowel sounds, No abdominal bruits, No spleenomegaly, No other Rectal: deferred Extremities: No normal range of motion, No non-tender, No normal inspection, No pedal edema, No calf tenderness, No normal capillary refill, No pelvis stable , No calf tenderness, No inflammation, No pedal edema, No slow capillary refill , No swelling, No other, No abrasion, No clubbing, No cyanosis, No ecchymosis, No laceration, No no lower extremity edema bilateral, No significant edema, No tenderness, No wound Neurologic/Psychiatric: no motor/sensory deficits, alert, normal mood/affect, oriented x 3, power is 5/5 both on sides Skin: No normal color, No warm/dry, No cyanosis, No cool, No diaphoresis, No damp, No ecchymosis, No jaundice, No mottled, No pallor, No rash, No tattoos/ piercings, No ulcerations, No rash on exposed areas, No ulcerations on exposed areas, No other Data Review Labs Laboratory Tests 06/13/18 20:45: White Blood Count 9.2, Red Blood Count 4.57, Hemoglobin 13.7, Hematocrit 41, Mean Corpuscular Volume 89, Mean Corpuscular Hemoglobin 30, Mean Corpuscular Hemoglobin Concent 34, Red Cell Distribution Width 13.4, Platelet Count 383, Mean Platelet Volume 8.5, Neutrophils (%) (Auto) 53, Lymphocytes (%) (Auto) 34, Monocytes (%) (Auto) 8, Eosinophils (%) (Auto) 5, Basophils (%) (Auto) 0, Neutrophils # (Auto) 4.9, Lymphocytes # (Auto) 3.2, Monocytes # (Auto) 0.7, Eosinophils # (Auto) 0.5H, Basophils # (Auto) 0.0, Prothrombin Time 12.4, INR Comment 0.9, Activated Partial Thromboplast Time 29, Sodium Level 141, Potassium Level 3.7, Chloride Level 108H, Carbon Dioxide Level 21, Anion Gap 12 , Blood Urea Nitrogen 16, Creatinine 0.80, Estimat Glomerular Filtration Rate > 60, BUN/Creatinine Ratio 20, Glucose Level 128H, Calcium Level 9.3, Corrected Calcium 9.1, Magnesium Level 2.3, Total Bilirubin 0.3, Aspartate Amino Transf ( AST/SGOT) 15, Alanine Aminotransferase (ALT/SGPT) 15, Alkaline Phosphatase 93, Myoglobin 27.7, Troponin I < 0.30, Total Protein 6.9, Albumin 4.3, Lipase 25 06/14/18 01:01: Troponin I < 0.30 06/14/18 07:04: White Blood Count 8.4, Red Blood Count 4.59, Hemoglobin 13.6, Hematocrit 41, Mean Corpuscular Volume 89, Mean Corpuscular Hemoglobin 30, Mean Corpuscular Hemoglobin Concent 33, Red Cell Distribution Width 13.3, Platelet Count 387, Mean Platelet Volume 8.7, Neutrophils (%) (Auto) 65, Lymphocytes (%) (Auto) 25, Monocytes (%) (Auto) 7, Eosinophils (%) (Auto) 2, Basophils (%) (Auto) 0, Neutrophils # (Auto) 5.5, Lymphocytes # (Auto) 2.1, Monocytes # (Auto) 0.6, Eosinophils # (Auto) 0.2, Basophils # (Auto) 0.0, Sodium Level 141, Potassium Level 3.9, Chloride Level 109H, Carbon Dioxide Level 21, Anion Gap 11, Blood Urea Nitrogen 12, Creatinine 0.72, Estimat Glomerular Filtration Rate > 60, BUN/ Creatinine Ratio 17, Glucose Level 98, Calcium Level 9.2, Troponin I < 0.30, Triglycerides Level 86, Cholesterol Level 155, LDL Cholesterol Direct 67, VLDL Cholesterol 17, HDL Cholesterol 70H ECG Impression ECG Initial ECG Rhythm: Normal Sinus Initial ECG Impression: Normal A/P-Cardiology Assessment/Admission Diagnosis Chest pain Plan Chest pain, no significant coronary risk factors. Acute coronary syndrome has been ruled out with serial negative troponin and EKG. I'll recommend an echocardiogram and nuclear stress test. Both can be done as an outpatient. I can follow-up as an outpatient. Patient can be discharged however I have educated her that if she has recurrent chest pain she should seek immediate medical attention. Thank you for your consultation. Please call me if you have any questions. Thiago Blair MD, FACP, FACC, FSCAI, FHRS, CCDS Interventional Cardiology Cardiac Electrophysiology Vascular Medicine and Endovascular Interventions Clinical Quality Measures AMI/AHF: ASA po Prior to arrival: No DVT/VTE Risk/Contraindication: Risk Factor Score Per Nursin RFS Level Per Nursing on Admit: 2=Moderate Vamsi BLAIR MD Jun 14, 2018 13:20
[2018-06-14] MEDS ORDERED: SUCRALFATE 1 GM (CARAFATE) TAB PO SCH (16:00)
[2018-06-14] MEDS ORDERED: ATORVASTATIN 40 MG (LIPITOR) TABLET PO SCH (21:00)
[2018-06-15] MEDS ORDERED: PANTOPRAZOLE 40 MG (PROTONIX) TAB PO SCH (07:00)
[2018-06-16] MEDS ORDERED: ATOR40TA PO (09:27)
[2018-06-16] MEDS ORDERED: CLOP75TA28 PO (09:27)
[2018-06-16] MEDS ORDERED: LISI-556 PO (09:27)
[2018-06-16] MEDS ORDERED: METO-387 PO (09:27)
[2018-06-16] MEDS ORDERED: ASPI-983 PO (09:27)
== END 2018-06-14 13:17 | disposition home or self-care (01) ==
LOC: EDUNIT# 20:26 → ER 20:27 → 4TH 22:08 → UNDOADMOB 22:08 → 4TH 22:32 → UNDODISOB 06-14 16:08
PROVIDERS: ADMIT Internal Medicine; ATTEND Internal Medicine
DX: R07.9 Chest pain, unspecified (principal); K21.9 Gastro-esophageal reflux disease without esophagitis; Z88.1 Allergy status to other antibiotic agents; Z88.2 Allergy status to sulfonamides; Z79.899 Other long term (current) drug therapy
CPT/HCPCS: 36415; 71045; 80048; 80053; 80061; 83690; 83735; 83874; 84484; 85025; 85610; 85730; 93005; G0378

== ENCOUNTER 2018-06-15 06:31 | Day surgery (SDC) | payer BC ==
[~2018-06-15] VITALS: Ht 152.4 cm; Wt 59.0 kg
[2018-06-15] VITALS (18 sets, daily range): BP systolic 101–151; BP diastolic 51–98
[~2018-06-15 06:31] MED LIST changes: +OMEP40CA36 PO; +SUCR1TAB PO
--- NOTE | 2018-06-15 06:57 | ED Chest Pain ---
General Chief Complaint: Chest Pain Stated Complaint: CP,SOB Source: patient Exam Limitations: no limitations History of Present Illness Date Seen by Provider: Jun 15, 2018 Time Seen by Provider: 06:44 Initial Comments Here with report of central to left-sided chest pain that radiates to her back. Onset early this morning and then lasted for about a half hour. Currently resolved. Was associated with some shortness of breath but denies nausea, vomiting or sweating. Was discharged from the hospital yesterday for chest pain and is scheduled for outpatient evaluation with Dr. Blair. She did not take anything for the pain. Currently it is resolved. Timing/Duration: 1/2 hour Severity/Quality: moderate, pressure Location: central Radiation: back Activities at Onset: none Prior CP/Workup: other (evaluated in the hospital with serial lab testing) Modifying Factors: improves with rest ASA po INTERNAL MEDICINE NURSE: Yes NTG SL INTERNAL MEDICINE NURSE: No Associated Symptoms: No abdominal pain, No back pain, No diaphoresis, No fever/ chills, No nausea/vomiting; shortness of breath; No weakness Allergies and Home Medications Allergies Coded Allergies: Sulfa (Sulfonamide Antibiotics) (Unverified Allergy, Unknown, HIVES AND VOMITING, 11/30/14) erythromycin base (Unverified Allergy, Unknown, HIVES AND VOMITING, ) Home Medications Estradiol 1 Mg Tablet, 1 MG PO DAILY, (Reported) Medroxyprogesterone Acetate 2.5 Mg Tablet, 2.5 MG PO HS, (Reported) Omeprazole 40 Mg Capsule.dr, 40 MG PO DAILY Prescribed by: TYSHAWN DUNN on 06/14/181316 Sucralfate 1 Gm Tablet, 1 GM PO ACHS Prescribed by: TYSHAWN DUNN on 06/14/18 1317 Patient Home Medication List Home Medication List Reviewed: Yes Review of Systems Review of Systems Constitutional: see HPI; No chills, No fever EENTM: No Symptoms Reported Respiratory: See HPI; Denies Cough Cardiovascular: Chest Pain; Denies Edema Gastrointestinal: No Symptoms Reported Genitourinary: No Symptoms Reported Musculoskeletal: back pain; No muscle pain Skin: no symptoms reported Psychiatric/Neurological: No Symptoms Reported All Other Systems Reviewed Negative Unless Noted: Yes Past Omzhhhu-Ezalun-Dtcqij Hx Past Med/Social Hx: Reviewed Nursing Past Med/Soc Hx Patient Social History Alcohol Use: Denies Use Number of Drinks Today: AA Alcohol Beverage of Choice: Beer Recreational Drug Use: No Smoking Status: Never a Smoker 2nd Hand Smoke Exposure: No Recent Foreign Travel: No Contact w/Someone Who Travel: No Recent Hopitalizations: No Immunizations Up To Date Date of Influenza Vaccine: Apr 13, 2018 Seasonal Allergies Seasonal Allergies: Yes Past Medical History Section, Gallbladder Respiratory: No Currently Using CPAP: No Currently Using BIPAP: No Cardiac: No Neurological: No Reproductive Disorders: No Genitourinary: No Gastrointestinal: No Gall Bladder Disease Musculoskeletal: No Endocrine: No HEENT: No Loss of Vision: Bilateral Cancer: No Psychosocial: No Integumentary: No Blood Disorders: No Adverse Reaction/Blood Tranf: No Family Medical History Reviewed Nursing Family Hx FH: breast cancer in first degree relative 19 MOTHER Other Conditions/Hx (A. fib mother) Physical Exam Vital Signs Vital Signs - First Documented 06/15/18 06:34 Pulse Ox 98 O2 Delivery Room Air Capillary Refill : Less Than 3 Seconds Height, Weight, BMI Height: 5'0.00" Weight: 139lbs. 9.0oz. 63.241567xi; 27.3 BMI Method:Stated General Appearance: No Apparent Distress, WD/WN HEENT: PERRL/EOMI, Pharynx Normal Neck: Non Tender, Supple Respiratory: Lungs Clear, Normal Breath Sounds Cardiovascular: Regular Rate, Rhythm, No Murmur Gastrointestinal: Non Tender, Soft Extremity: Normal Range of Motion, Non Tender Neurologic/Psychiatric: Alert, Oriented x3 Skin: Normal Color, Warm/Dry Progress/Results/Core Measures Results/Orders Lab Results Laboratory Tests Test 06/15/18 06:43 Range/Units White Blood Count 9.6 4.3-11.0 10^3/uL Red Blood Count 4.85 4.35-5.85 10^6/uL Hemoglobin 14.3 11.5-16.0 G/DL Hematocrit 43 35-52 % Mean Corpuscular Volume 89 80-99 FL Mean Corpuscular Hemoglobin 30 25-34 PG Mean Corpuscular Hemoglobin Concent 33 32-36 G/DL Red Cell Distribution Width 13.7 10.0-14.5 % Platelet Count 432 H 130-400 10^3/uL Mean Platelet Volume 8.8 7.4-10.4 FL Neutrophils (%) (Auto) 57 42-75 % Lymphocytes (%) (Auto) 34 12-44 % Monocytes (%) (Auto) 7 0-12 % Eosinophils (%) (Auto) 2 0-10 % Basophils (%) (Auto) 0 0-10 % Neutrophils # (Auto) 5.4 1.8-7.8 X 10^3 Lymphocytes # (Auto) 3.3 1.0-4.0 X 10^3 Monocytes # (Auto) 0.7 0.0-1.0 X 10^3 Eosinophils # (Auto) 0.2 0.0-0.3 10^3/uL Basophils # (Auto) 0.0 0.0-0.1 10^3/uL Prothrombin Time 13.3 12.2-14.7 SEC INR Comment 1.0 0.8-1.4 Activated Partial Thromboplast Time 28 24-35 SEC D-Dimer 0.23 0.00-0.49 UG/ML Sodium Level 140 135-145 MMOL/L Potassium Level 3.6 3.6-5.0 MMOL/L Chloride Level 108 H 98-107 MMOL/L Carbon Dioxide Level 18 L 21-32 MMOL/L Anion Gap 14 5-14 MMOL/L Blood Urea Nitrogen 14 7-18 MG/DL Creatinine 0.81 0.60-1.30 MG/DL Estimat Glomerular Filtration Rate > 60 BUN/Creatinine Ratio 17 Glucose Level 142 H 70-105 MG/DL Calcium Level 9.1 8.5-10.1 MG/DL Corrected Calcium 8.9 8.5-10.1 MG/DL Magnesium Level 2.2 1.8-2.4 MG/DL Total Bilirubin 0.6 0.1-1.0 MG/DL Aspartate Amino Transf (AST/SGOT) 15 5-34 U/L Alanine Aminotransferase (ALT/SGPT) 16 0-55 U/L Alkaline Phosphatase 83 40-136 U/L Myoglobin 38.0 10.0-92.0 NG/ML Troponin I < 0.30 <0.30 NG/ML Total Protein 7.5 6.4-8.2 GM/DL Albumin 4.3 3.2-4.5 GM/DL Lipase 22 8-78 U/L My Orders Orders - YESSENIA ALCANTAR MD Cbc With Automated Diff (06/15/18 06:50) Magnesium (06/15/18 06:50) Chest 1 View, Ap/Pa Only (06/15/18 06:50) Ekg Tracing (06/15/18 06:50) Cardiac Profile 1 (06/15/18 06:50) Comprehensive Metabolic Panel (06/15/18 06:50) Myoglobin Serum (06/15/18 06:50) Protime With Inr (06/15/18 06:50) Partial Thromboplastin Time (06/15/18 06:50) O2 (06/15/18 06:50) Monitor-Rhythm Ecg Trace Only (06/15/18 06:50) Lipid Panel (06/16/18 06:00) Aspirin Chewable Tablet (Baby Aspirin Ch (06/15/18 07:00) Saline Lock/Iv-Start (06/15/18 06:50) Lipase (06/15/18 06:50) Fibrin Degradation Products (06/15/18 06:50) Nitroglycerin 0.4 Mg Btl 25's (Nitrostat (06/15/18 08:15) Nitroglycerin 0.4 Mg Btl 25's (Nitrostat (06/15/18 08:07) Clopidogrel Tablet (Plavix Tablet) (06/15/18 08:30) Medications Given in ED Current Medications Medications Dose Ordered Sig/Astrid Route Start Time Stop Time Status Last Admin Dose Admin Aspirin 324 mg ONCE ONCE PO 06/15/18 07:00 06/15/18 07:01 DC 06/15/18 07:06 324 MG Clopidogrel Bisulfate 600 mg ONCE ONCE PO 06/15/18 08:30 06/15/18 08:31 DC 06/15/18 08:33 600 MG Nitroglycerin 0.4 mg UD PRN SL 06/15/18 08:15 06/15/18 08:17 0.4 MG Vital Signs/I&O 06/15/18 06/15/18 06/15/18 06/15/18 06:34 06:46 06:46 07:06 Temp 98.6 98.6 Pulse 89 Resp 14 B/P (MAP) 141/84 (103) Pulse Ox 98 98 O2 Delivery Room Air Room Air Room Air Progress Progress Note : Progress Note Seen and evaluated. IV, labs, chest x-ray and EKG ordered. ASA 324 mg by mouth ordered. No nitroglycerin at this point as she is pain-free. Monitor patient. 0 810: Patient had repeat chest pain. Nitroglycerin sublingual was been ordered and given. 0820:2 doses nitroglycerin did resolve the pain. I did discuss the case with Dr. Blair and he would like the patient admitted and he will likely take her to catheter lab today. Requested Plavix 600 mg by mouth. This was ordered. 0829: I did discuss case with Dr. Dash. She accepts patient for admission, observation status. Patient and family agree with plan. Initial ECG Impression Date: Jun 15, 2018 Initial ECG Impression Time: 06:34 Initial ECG Rate: 80 Initial ECG Rhythm: Normal Sinus Initial ECG Comparisson: Unchanged Comment Sinus rhythm with left atrial abnormality. No evidence of ST elevation [place]. Similar to previous of 06/14/18. Interpreted by me. Diagnostic Imaging Diagonstic Imaging: Xray Plain Films/CT/US/NM/MRI: chest Comments VIA [facility], [facility]. [place], [place] NAME: JOI RAMIREZ [facility] REC#: [id number] PT STATUS: REG ER : 1955 PHYSICIAN: YESSENIA ALCANTAR MD ADMIT DATE: 06/15/18/ER Draft Date of Exam:06/15/18 CHEST 1 VIEW, AP/PA ONLY INDICATION: Chest pain. Portable upright AP view of the chest is obtained with comparison made to study of 06/13/2018. FINDINGS: Heart size and pulmonary vascularity are within normal limits, and the lungs are clear, bilaterally. IMPRESSION: Unremarkable chest. Dictated on workstation # [id number] Dict: 06/15/18 0705 Trans: 06/15/18 0711 [id number] Interpreted by: DWAYNE OHNG MD Electronically signed by: Departure Communication (Admissions) Time/Spoke to Admitting Phy: 08:29 Time/Spoke to Consulting Phy: 08:20 Impression Primary Impression: Chest pain Qualified Codes: R07.9 - Chest pain, unspecified Disposition: ADMITTED INPATIENT Condition: Stable Admissions Decision to Admit Reason: Admit from ER (General) Decision to Admit/Date: Jun 15, 2018 Time/Decision to Admit Time: 08:20 Departure-Patient Inst. Referrals: MAX DASH MD (PCP/Family) Primary Care Physician YESSENIA ALCANTAR MD Jun 15, 2018 06:57
[2018-06-15] MEDS ORDERED: ASPIRIN 81 MG CHEW (CHILDREN'S ASA) PO ONE (07:00)
[2018-06-15 07:03] LABS: BASOPHILS % (AUTO) 0 % (0-10); EOSINOPHILS # (AUTO) 0.2 10^3/uL (0.0-0.3); EOSINOPHILS % (AUTO) 2 % (0-10); HEMATOCRIT 43 % (35-52); HEMOGLOBIN 14.3 G/DL (11.5-16.0); LYMPHOCYTES # (AUTO) 3.3 X 10^3 (1.0-4.0); LYMPHOCYTES % (AUTO) 34 % (12-44); MEAN CORPUSCULAR HEMOGLOBIN 30 PG (25-34); MEAN CORPUSCULAR HGB CONC 33 G/DL (32-36); MEAN CORPUSCULAR VOLUME 89 FL (80-99); MEAN PLATELET VOLUME 8.8 FL (7.4-10.4); MONOCYTES # (AUTO) 0.7 X 10^3 (0.0-1.0); MONOCYTES % (AUTO) 7 % (0-12); NEUTROPHILS # (AUTO) 5.4 X 10^3 (1.8-7.8); NEUTROPHILS % (AUTO) 57 % (42-75); PLATELET COUNT 432 10^3/uL (130-400); RED BLOOD COUNT 4.85 10^6/uL (4.35-5.85); RED CELL DISTRIBUTION WIDTH 13.7 % (10.0-14.5); WHITE BLOOD COUNT 9.6 10^3/uL (4.3-11.0)
[2018-06-15 07:10] LABS: PROTHROMBIN TIME PATIENT 13.3 SEC (12.2-14.7)
--- NOTE | 2018-06-15 07:11 | Diagnostic Imaging Report ---
INDICATION: Chest pain. Portable upright AP view of the chest is obtained with comparison made to study of 06/13/2018. FINDINGS: Heart size and pulmonary vascularity are within normal limits, and the lungs are clear, bilaterally. IMPRESSION: Unremarkable chest. Dictated by: Dictated on workstation # [id number]
[2018-06-15 07:16] LABS: ALANINE AMINOTRANSFERASE 16 U/L (0-55); ALBUMIN 4.3 GM/DL (3.2-4.5); ALKALINE PHOSPHATASE 83 U/L (40-136); BILIRUBIN,TOTAL 0.6 MG/DL (0.1-1.0); BUN/CREATININE RATIO 17; CALCIUM 9.1 MG/DL (8.5-10.1); CARBON DIOXIDE 18 MMOL/L (21-32); CHLORIDE 108 MMOL/L (98-107); CREATININE SERUM 0.81 MG/DL (0.60-1.30); GFR ESTIMATED > 60; GLUCOSE 142 MG/DL (70-105); LIPASE 22 U/L (8-78); MAGNESIUM 2.2 MG/DL (1.8-2.4); POTASSIUM 3.6 MMOL/L (3.6-5.0); SODIUM 140 MMOL/L (135-145); TOTAL PROTEIN 7.5 GM/DL (6.4-8.2)
[2018-06-15] MEDS ORDERED: NITROGLYCERIN 0.4 MG SL TABS BTL 25'S SL ONE (08:07)
[2018-06-15] MEDS: NITROGLYCERIN 0.4 MG SL TABS BTL 25'S SL PRN ×2 (08:10→08:17)
[2018-06-15] MEDS ORDERED: CLOPIDOGREL 300 MG (PLAVIX) TABLET PO ONE (08:30)
--- OUTSIDE RECORDS SUMMARY | 2018-06-15 09:31 | XMS REPORT | Continuity of Care Document ---
Author Author [facility] Organization [facility] Address Unknown Phone Unavailable Allergies Active Description Code Type Severity Reaction Onset Reported/Identified Relationship to Patient Clinical Status Yes erythromycin base [id number] Drug Allergy Unknown HIVES AND VOMIT 2014 Yes Sulfa (Sulfonamide Antibiotics) [id number] Drug Allergy Unknown HIVES AND VOMIT 11/30/2014 [...] E04.2 NONTOXIC MULTINODULAR GOITER 02/20/2016 GARY GONZALES CUMULATIVE EFFECTS ANALYST Ot E04.2 NONTOXIC MULTINODULAR GOITER 03/15/2016 [facility] ASSISTANTS TEACHER Ot 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, N 03/15/2016 [facility] ASSISTANT[facility] TEACHER Ot 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, N 03/19/2016 [facility] ASSISTANTS TEACHER Ot 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, N 03/22/2016 [facility] ASSISTANTS TEACHER Ot K42.9 UMBILICAL HERNIA WITHOUT OBSTRUCTION OR 03/22/2016 [facility] ASSISTANTS TEACHER Ot N28.1 CYST OF KIDNEY, ACQUIRED 03/22/2016 [facility] A[facility]ES AND ASSISTANTS TEACHER Ot 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, N 04/09/2016 [facility] A[facility]ES [facility] ASSISTANTS TEACHER Ot K42.9 UMBILICAL HERNIA WITHOUT OBSTRUCTION OR 04/09/2016 [facility] APRN Ot N28.1 CYST OF KIDNEY, ACQUIRED 06/20/2016 REYMUNDO WISEMAN, MARIA D Agustin Ot 574.20 CHOLELITHIASIS NOS 06/20/2016 REYMUNDO WISEMAN, MARIA D Agustin Ot 759.89 OTHER SPECIFIED ANOMALIES 06/20/2016 REYMUNDO WISEMAN, MARIA D Agustin Ot 789.00 ABDOMINAL PAIN, UNSPECIFIED SITE 06/20/2016 REYMUNDO WISMEAN, MARIA D Agustin Ot 793.6 NOSP (ABN) [...] NONTOXIC SINGLE THYROID NODULE 06/20/2016 GARY GONZALES CUMULATIVE EFFECTS ANALYST Ot E04.2 NONTOXIC MULTINODULAR GOITER 06/20/2016 [facility] ASSISTANTS TEACHER Ot 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, N 06/20/2016 [facility] ASSISTANTS TEACHER Ot K42.9 UMBILICAL HERNIA WITHOUT OBSTRUCTION OR 06/20/2016 [facility] ASSISTANTS TEACHER Ot N28.1 CYST OF KIDNEY, ACQUIRED 12/30/2016 [...] V74.8 SCREEN-BACTERIAL DIS NEC 12/30/2016 YARA DC BACK HOE MACHINE OPERATOR Ot Z13.9 ENCOUNTER FOR SCREENING, UNSPECIFIED 12/30/2016 YUNG HAQUE MD Ot E04.1 NONTOXIC SINGLE THYROID NODULE 12/30/2016 YUNG HAQUE MD Ot E04.1 NONTOXIC SINGLE THYROID NODULE 12/30/2016 GARY GONZALES CUMULATIVE EFFECTS ANALYST Ot E04.2 NONTOXIC MULTINODULAR GOITER 12/30/2016 [facility] A[facility]ES [facility] ASSISTANTS TEACHER Ot 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, N 12/30/2016 [facility] A[facility]ES [facility] ASSISTANTS TEACHER Ot K42.9 UMBILICAL HERNIA WITHOUT OBSTRUCTION OR 12/30/2016 [facility] ASSISTANTS TEACHER Ot N28.1 CYST OF KIDNEY, ACQUIRED 01/08/2017 [...] V74.8 SCREEN-BACTERIAL DIS NEC 09/12/2017 YARA DC BACK HOE MACHINE OPERATOR Ot Z13.9 ENCOUNTER FOR SCREENING, UNSPECIFIED 09/12/2017 GARLAND WISEMAN, YUNG Brown Ot E04.1 NONTOXIC SINGLE THYROID NODULE 09/12/2017 GARLAND WISEMAN, YUNG Brown Ot E04.1 NONTOXIC SINGLE THYROID NODULE 09/12/2017 GARY GONZALES CUMULATIVE EFFECTS ANALYST Ot E04.2 NONTOXIC MULTINODULAR GOITER 09/12/2017 [facility] ASSISTANTS TEACHER Ot 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, N 09/12/2017 [facility] A[facility]ES [facility] ASSISTANTS TEACHER Ot K42.9 UMBILICAL HERNIA WITHOUT OBSTRUCTION OR 09/12/2017 [facility] A[facility]ES [facility] ASSISTANTS TEACHER Ot N28.1 CYST OF KIDNEY, ACQUIRED 09/12/2017 SAQIB WISEMAN, LORENZA Burns Ot E04.2 NONTOXIC MULTINODULAR GOITER 09/15/2017 [facility] A[facility]ES [facility] ASSISTANTS TEACHER Ot 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, N 09/15/2017 [facility] APRN Ot Z80.51 FAMILY HISTORY OF MALIGNANT NEOPLASM OF 10/03/2017 [facility] A[facility]ES AND ASSISTANTS TEACHER Ot 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, N 10/03/2017 [facility] A[facility]ES [facility] ASSISTANTS TEACHER Ot Z80.51 FAMILY HISTORY OF MALIGNANT NEOPLASM OF 12/18/2017 JESSICA WISEMAN, RAIC Agustin Ot Z01.818 ENCOUNTER FOR OTHER PREPROCEDURAL EXAMIN 12/18/2017 ARIC LOPEZ MD Ot Z12.11 ENCOUNTER FOR SCREENING FOR MALIGNANT NE 12/22/2017 ARIC LOPEZ MD Ot Z01.818 ENCOUNTER FOR OTHER PREPROCEDURAL EXAMIN 12/22/2017 ARIC LOPEZ MD Ot Z12.11 ENCOUNTER FOR SCREENING FOR MALIGNANT NE 12/23/2017 JESSICA WISEMAN, ARIC Agustin Ot Z01.818 ENCOUNTER FOR OTHER PREPROCEDURAL EXAMIN 12/23/2017 ARIC LOPZE MD Ot Z12.11 ENCOUNTER FOR SCREENING FOR [...] Status Pt. Type Provider Facility Loc./Unit Complaint [id number] 01/26/2018 07:55:00 01/26/2018 23:59:59 CLS Outpatient GARY GONZALES [facility] RAD MULTINODULAR GOITER [id number] 12/26/2017 07:16:00 12/26/2017 09:40:00 DIS Outpatient TARAN SERRANO MD [facility] ENDO SCREENING [id number] 12/22/2017 08:30:00 12/22/2017 10:22:00 DIS Outpatient ARIC LOPEZ MD [facility] PREOP COLONOSCOPY [id number] 09/15/2017 12:53:00 09/15/2017 23:59:59 CLS Outpatient [facility] A[facility]ES [facility] ASSISTANTS TEACHER [facility] RAD 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 [id number] 01/06/2017 09:19:00 01/06/2017 23:59:59 CLS Outpatient LORENZA CERRATO MD [facility] RAD THYROID NODULE [id number] 03/21/2016 08:05:00 03/21/2016 23:59:59 CLS Outpatient [facility] A[facility]ES [facility] ASSISTANTS TEACHER [facility] RAD INDETERMINATE LESION IN LT KIDNEY [id number] 03/13/2016 13:14:00 03/13/2016 23:59:59 CLS Outpatient [facility] ASSISTANTS TEACHER [facility] RAD NANDO RAUL KASSIDY SYNDROME [id number] 01/24/2016 13:06:00 01/24/2016 23:59:59 CLS Outpatient GARY GONZALES CUMULATIVE EFFECTS ANALYST [facility] RAD MULTINODULAR GOITER [id number] 07/11/2015 11:02:00 07/11/2015 23:59:59 CLS Outpatient YUNG HAQUE MD [facility] CARD ENLARGED THYROID LEFT SIDE [id number] 07/10/2015 08:05:00 07/10/2015 23:59:59 CLS Outpatient YUNG HAQUE MD [facility] RAD 1 CM NODULE LT SIDE [id number] 04/27/2015 07:59:00 04/27/2015 23:59:59 CLS Outpatient YARA DC BACK HOE MACHINE OPERATOR [facility] RAD GENETIC SCREENING [id number] 12/01/2014 09:50:00 12/02/2014 10:30:00 DIS Outpatient ARIC LOPEZ MD [facility] SDC GALLSTONES [id number] 11/30/2014 08:49:00 11/30/2014 23:59:59 CLS Outpatient ARIC LOPEZ MD [facility] PREOP GALLSTONES [id number] 10/08/2013 09:40:00 10/08/2013 23:59:59 CLS Outpatient MARIA D DWYER MD [facility] RAD GENETIC SCREENING [id number] 02/13/2018 14:59:00 02/13/2018 23:59:00 DIS Outpatient YUNG HAQUE [id number] 01/09/2017 14:28:00 01/09/2017 23:59:00 DIS Outpatient MAX MENDOZA
[2018-06-15] MEDS ORDERED: NS IV 1000 ML 1,000 ML IV SCH (10:15)
[2018-06-15] MEDS ORDERED: ONDANSETRON 4 MG/2 ML (SDV) Z0FRAN IVP PRN (10:15)
[2018-06-15] MEDS ORDERED: morphine INJ 4 MG/ML 1 ML (VIAL/SYRINGE) IVP PRN (10:30)
[2018-06-15] MEDS ORDERED: HEParin (CATH LAB) 2,000 ML IV ONE (11:46)
[2018-06-15] MEDS ORDERED: LIDOCAINE 1% INJ 20 ML 20 ML VIAL ONE (11:46)
[2018-06-15 13:13] LABS: MYOGLOBIN SERUM 30.3 NG/ML (10.0-92.0)
[2018-06-15] MEDS ORDERED: MIDAZOLAM 5 MG/5 ML (VERSED) VIAL ONE (13:33)
[2018-06-15] MEDS ORDERED: fentaNYL INJECTION 100 MCG/2 ML AMP ONE (13:33)
--- NOTE | 2018-06-15 14:28 | Consultation-Cardiology ---
HPI-Cardiology Cardiology Consultation: Date of Consultation 06/15/18 Date of Admission Attending Physician Alisha Dash MD Admitting Physician Alisha Dash MD Consulting Physician Vamsi BLAIR MD HPI: Time Seen by a Provider: 10:00 Chief Complaint: Chest pain This is a 62-year-old lady with no past medical or cardiac history. She denies any significant coronary artery disease risk factors including diabetes, active smoking, hypertension, hyperlipidemia, premature family history of CAD. She was recently admitted for chest pain radiating to the left arm. Acute coronary syndrome/non-STEMI was ruled out with negative serial troponin and EKG. She was discharged yesterday to have an outpatient nuclear stress test but presented this morning with recurrent prolonged episode of chest pain. Chest pain was substernal, moderate intensity, radiating to the left arm. No exacerbating or relieving factors. Troponin was negative. Review of Systems-Cardiology Review of Systems Constitutional: As described under HPI; No As described under HPI, No no symptoms reported, No chills, No fever, No lightheadedness Eyes: No As described under HPI, No no symptoms reported, No blindness, No blurred vision, No contact lenses, No drainage, No decreased acuity, No foreign body sensation, No pain, No vision change Ears/Nose/Throat: No As described under HPI, No no symptoms reported, No chronic hearing loss, No ear discharge, No ear pain, No nasal drainage, No ulcerations Respiratory: No no symptoms reported; As described under HPI; No As described under HPI, No cough, No orthopnea, No shortness of breath, No SOB with excertion Cardiovascular: No no symptoms reported; As described under HPI; No As described under HPI; chest pain; No edema, No irregular heart rate, No lightheadedness, No palpitations Gastrointestinal: No no symptoms reported, No As described under HPI, No abdomen distended, No abdominal pain, No blood streaked bowels, No constipation , No diarrhea, No nausea, No vomiting, No stool coloration changes Genitourinary: No As described under HPI, No burning, No dysuria, No discharge , No frequency, No flank pain, No hematuria, No urgency : Yes : No Musculoskeletal: No no symptoms reported, No As describe under HPI, No back pain, No gout, No joint pain, No joint swelling, No muscle pain, No muscle stiffness, No neck pain, No other Skin: No no symptoms reported, No As described under HPI, No change in color, No change in hair/nails, No dryness, No lesions, No lumps, No rash, No other, No skin related problems, No ulcerations, No rash on exposed areas, No ulcerations on exposed areas Psychiatric/Neurological: No anxiety, No depression, No seizure, No focal weakness, No syncope Hematologic: No bleeding abnormalities All Other Systems Reviewed Negative Unless Noted: Yes AEJ-Sjnfag-Mzshkb Hx Patient Social History Alcohol Use: Denies Use Recreational Drug Use: No Smoking Status: Never a Smoker 2nd Hand Smoke Exposure: No Recent Foreign Travel: No Recent Infectious Disease Expo: No Physical Abuse Screen: No Sexual Abuse: No Immunizations Up To Date Date of Influenza Vaccine: Apr 13, 2018 Past Medical History PMH As described under Assessment. Family Medical History Family History: FH: breast cancer in first degree relative 19 MOTHER Allergies and Home Medications Allergies Coded Allergies: Sulfa (Sulfonamide Antibiotics) (Unverified Allergy, Unknown, HIVES AND VOMITING, 11/30/14) erythromycin base (Unverified Allergy, Unknown, HIVES AND VOMITING, ) Home Medications Estradiol 1 Mg Tablet, 1 MG PO DAILY, (Reported) Medroxyprogesterone Acetate 2.5 Mg Tablet, 2.5 MG PO HS, (Reported) Omeprazole 40 Mg Capsule.dr, 40 MG PO DAILY Prescribed by: TYSHAWN DUNN on 06/14/181316 Sucralfate 1 Gm Tablet, 1 GM PO ACHS Prescribed by: TYSHAWN DUNN on 06/14/181316 Patient Home Medication List Home Medication List Reviewed: Yes Physical Exam-Cardiology Physical Exam Vital Signs/I&O 06/15/18 06/15/18 06/15/18 06/15/18 06:34 06:46 06:46 07:06 Temp 98.6 98.6 Pulse 89 Resp 14 B/P (MAP) 141/84 (103) Pulse Ox 98 98 O2 Delivery Room Air Room Air Room Air 06/15/18 06/15/18 06/15/18 06/15/18 09:45 09:45 09:50 10:05 Temp 98.4 Pulse 80 80 92 Resp 12 22 B/P (MAP) 115/75 (88) 115/77 (90) 115/79 (91) Pulse Ox 97 97 97 96 O2 Delivery Room Air Room Air Room Air 06/15/18 06/15/18 06/15/18 06/15/18 10:20 10:30 10:35 11:00 Pulse 86 86 103 87 B/P (MAP) 113/73 (86) 113/74 (87) 110/69 (83) Pulse Ox 97 96 96 06/15/18 06/15/18 06/15/18 06/15/18 12:00 13:00 13:00 14:00 Temp 98.6 Pulse 94 95 83 84 Resp 20 B/P (MAP) 101/51 (68) 104/69 (81) 108/70 (83) Pulse Ox 97 95 95 O2 Delivery Room Air 06/15/18 06/15/18 06/15/18 06/15/18 16:00 16:15 16:30 16:45 Temp 97.9 Pulse 79 93 89 96 Resp 18 18 18 18 B/P (MAP) 133/79 (97) 130/83 (99) 129/86 (100) 132/84 (100) Pulse Ox 97 100 96 98 O2 Delivery Room Air Room Air Room Air Room Air 06/15/18 17:00 Pulse 86 Resp 18 B/P (MAP) 142/83 (102) Pulse Ox 96 O2 Delivery Room Air Capillary Refill : Less Than 3 Seconds Constitutional: appears stated age; No apparent distress; well-developed, well- nourished HEENT: PERRL; No normal ENT inspection, No TMs normal, No pharynx normal, No scleral icterus (R), No scleral icterus (L), No pale conjunctivae (R), No pale conjunctivae (L), No photophobia, No TM abnormal (R), No TM abnormal (L), No pharyngeal erythema, No tonsillar exudate, No other, No discharge, No EOMI; hearing is well preserved; No hard of hearing; oral hygience is good; No ulceration, No xanthelasmas are seen Neck: No non-tender, No full range of motion, No supple, No normal inspection, No carotid bruit, No limited range of motion, No lymphadenopathy (R), No lymphadenopathy (L), No tender lateral, No tender midline, No thyromegaly, No other; carotid pulses are 2 + bilaterally; No with good upstrokes Respiratory: No accessory muscle use, No respiratory distress, No chest tender , No chest expansion is symmetric; chest is bilaterally symmetric; No lungs clear to percussion; lungs clear to auscultation; No crackles, No rhonchi, No rales, No stridor, No wheezing, No pleural rub, No other Cardiovascular: regular rate-rhythm; No irregularly irregular, No extra beats, No parasternal heave is noted, No JVD, No edema, No bradycardia, No tachycardia , No point of maximal impulse, No cardiac thrills are palpable; S1 and S2; No gallop/S3, No gallop/S4, No diastolic murmur, No systolic murmur, No friction rub, No click, No other Gastrointestinal: No tender, No soft, No round, No distended, No pulsatile mass , No organomegaly, No guarding, No rebound, No tenderness, No hernia, No mass, No audible bowel sounds, No abnormal bowel sounds, No abdominal bruits, No spleenomegaly, No other Rectal: deferred Extremities: No normal range of motion, No non-tender, No normal inspection, No pedal edema, No calf tenderness, No normal capillary refill, No pelvis stable , No calf tenderness, No inflammation, No pedal edema, No slow capillary refill , No swelling, No other, No abrasion, No clubbing, No cyanosis, No ecchymosis, No laceration, No no lower extremity edema bilateral, No significant edema, No tenderness, No wound Neurologic/Psychiatric: no motor/sensory deficits, alert, normal mood/affect, oriented x 3, power is 5/5 both on sides Skin: No normal color, No warm/dry, No cyanosis, No cool, No diaphoresis, No damp, No ecchymosis, No jaundice, No mottled, No pallor, No rash, No tattoos/ piercings, No ulcerations, No rash on exposed areas, No ulcerations on exposed areas, No other Data Review Labs Laboratory Tests 06/15/18 06:43: White Blood Count 9.6, Red Blood Count 4.85, Hemoglobin 14.3, Hematocrit 43, Mean Corpuscular Volume 89, Mean Corpuscular Hemoglobin 30, Mean Corpuscular Hemoglobin Concent 33, Red Cell Distribution Width 13.7, Platelet Count 432H, Mean Platelet Volume 8.8, Neutrophils (%) (Auto) 57, Lymphocytes (%) (Auto) 34, Monocytes (%) (Auto) 7, Eosinophils (%) (Auto) 2, Basophils (%) (Auto) 0, Neutrophils # (Auto) 5.4, Lymphocytes # (Auto) 3.3, Monocytes # (Auto) 0.7, Eosinophils # (Auto) 0.2, Basophils # (Auto) 0.0, Prothrombin Time 13.3, INR Comment 1.0, Activated Partial Thromboplast Time 28, D-Dimer 0.23, Sodium Level 140, Potassium Level 3.6, Chloride Level 108H, Carbon Dioxide Level 18L, Anion Gap 14, Blood Urea Nitrogen 14, Creatinine 0.81, Estimat Glomerular Filtration Rate > 60, BUN/Creatinine Ratio 17, Glucose Level 142H, Calcium Level 9.1, Corrected Calcium 8.9, Magnesium Level 2.2, Total Bilirubin 0.6, Aspartate Amino Transf (AST/SGOT) 15, Alanine Aminotransferase (ALT/SGPT) 16, Alkaline Phosphatase 83, Myoglobin 38.0, Troponin I < 0.30, Total Protein 7.5, Albumin 4.3, Lipase 22 06/15/18 12:45: Myoglobin 30.3, Total Creatine Kinase 70 ECG Impression ECG Initial ECG Rhythm: Normal Sinus Initial ECG Impression: Normal A/P-Cardiology Assessment/Admission Diagnosis Unstable angina, Plan Unstable angina, prolonged recurrent chest pain refractory to medical therapy. Preliminary echocardiogram shows apical septal hypokinesis. Coronary angiography is recommended. Plavix 600 mg 1 bolus. Informed consent was taken for coronary angiography and possible PCI. All the risks and complication were explained in detail. Thank you for your consultation. Please call me if you have any questions. Thiago Blair MD, FACP, FACC, FSCAI, FHRS, CCDS Interventional Cardiology Cardiac Electrophysiology Vascular Medicine and Endovascular Interventions Clinical Quality Measures AMI/AHF: ASA po Prior to arrival: Yes DVT/VTE Risk/Contraindication: Risk Factor Score Per Nursin RFS Level Per Nursing on Admit: 3=High Vamsi BLAIR MD Jun 15, 2018 2:28 pm
[2018-06-15] MEDS ORDERED: HEParin 1000 UNIT/ML (10ML VIAL) FOR BOLUS ONE (14:29)
[2018-06-15] MEDS ORDERED: NITRO DRIP 25000 MCG/D5W 250 ML IV ONE (14:29)
[2018-06-15] MEDS ORDERED: VERAPAMIL 5 MG/2 ML (CALAN) VIAL IV ONE (14:29)
--- NOTE | 2018-06-15 15:53 | Cardiac Procedure Note-CS/ASA ---
Pre-Procedure Note Pre-Op Procedure Note H&P Reviewed The H&P was reviewed, patient examined and no changes noted. Date H&P Reviewed: Jun 15, 2018 Time H&P Reviewed: 11:00 Conscious Sedation Pre-Proced Time 11:00 ASA Score 3 For ASA 3 and 4: Consider anesthesia and medical clearance. Also, for patients with a history of failed moderate sedation consider anesthesia. Airway Lungs Heart ASA score ASA 1: a normal healthy patient ASA 2: a patient with a mild systemic disease (mid diabetes, controlled hypertension, obesity ASA 3: a patient with a severe systemic disease that limits activity (angina , COPD, prior Myocardial infarction) ASA 4: a patient with an incapacitating disease that is a constant threat to life (CHF, renal failure) ASA 5: a moribund patient not expected to survive 24 hrs. (ruptured aneurysm) ASA 6: a declared brain patient whose organs are being harvested. For emergent operations, add the letter E after the classification Mallampati Classification Grade 1 Sedation Plan Analgesia, Amnesia, Plan communicated to team members, Discussed options with patient/fam, Discussed risks with patient/fam The patient is an appropriate candidate to undergo the planned procedure, sedation, and anesthesia. The patient immediately re-assessed prior to indication. Vamsi MEADOWS MD Jun 15, 2018 3:53 pm
[2018-06-15] MEDS ORDERED: PATIENT MAY USE OWN MEDS, ALL PO SCH (16:00)
--- NOTE | 2018-06-15 16:19 | Coronary Angiography & PCI ---
Coronary Angiography & PCI DATE OF PROCEDURE: 06/15/18 INDICATION: Unstable angina, refractory to medical therapy. PREOPERATIVE DIAGNOSIS: Unstable angina, refractory to medical therapy. POSTOPERATIVE DIAGNOSIS: Severe ostial LAD stenosis treated successfully with drug-eluting stent. HISTORY: This is a 62-year-old lady who does not have any significant CAD risk factors who presented recently with prolonged episode of chest pains. Acute coronary syndrome was ruled out with negative serial troponin and EKG. She was discharged yesterday to have a nuclear stress test as an outpatient. However she presented again with prolonged episode of chest pain this morning. Troponin was negative and EKG did not show any acute ST-T wave abnormalities. Therefore, the patient was scheduled for urgent coronary angiography. PROCEDURES PERFORMED: 1.Coronary angiography. 2.Left heart catheterization. 3. Aortic arch angiogram. 4. PCI to the ostial LAD with drug-eluting stent. COMPLICATIONS: None. SPECIMENS: None. ESTIMATED BLOOD LOSS: 10 mL ANESTHESIA: Conscious sedation ANTICOAGULATION: IV heparin CONTRAST: 155 mL. FLUOROSCOPY: 12.7 minutes. FLOUROSCOPY DOSE: 874 MGY. PROCEDURE DETAILS: The patient is a 62 female and was brought to the record label internship after informed consent was taken. All the risks and complications were explained in detail; this included the risk of bleeding, vascular damage, stroke , GA and even . The patient was draped and prepped in the usual sterile fashion. Access was gained in the right radial artery with a 6 Sinhala sheath. Coronary angiography and left heart catheterization was performed with the Paxton catheter. Aortic arch angiogram was performed with the Paxton catheter. FINDINGS: 1.Left main: Patent. 2.LAD: Severe ostial stenosis. Stenosis severity 90 percent. Mild disease in the midsegment. Stenosis severity 20 percent. 3.Left circumflex artery: Luminal irregularities. 4.RCA: Mild mid RCA disease. Stenosis severity 20 percent. 5.Left heart catheterization: Aortic pressure 100/64 mmHg. LV pressure 94/8 mmHg. LVEDP 14 mmHg. Normal LV function with no wall motion abnormalities. No gradient across the aortic valve. 6. Aortic arch angiogram: No evidence of ascending aorta aneurysm or dissection. Patent proximal segments of the brachiocephalic artery, common carotid artery, left subclavian artery. RECOMMENDATIONS: 1. PCI is recommended to ostial LAD stenosis. INTERVENTION DETAILS: JL 3.5 guide catheter, BMW guidewire, IV heparin for anticoagulation. ACT was done twice. The first ACT was 148 seconds. The second ACT was 270 seconds. The lesion was crossed with the BMW wire. The tip of the wire was placed in the mid/distal LAD. We took a signs Alpine 2.75 x 12 mm stent and deployed it very carefully at 16 luis for 35 seconds. We then took an NC Quantum 3.0 x 8 mm noncompliant balloon and performed 2 post dilatation in the mid and distal segment for 16 luis for 35 seconds and in the proximal segment for 16 luis for 20 seconds. Excellent angiographic results. The wire was taken out and post- angiogram showed ELLEN 3 flow with no residual stenosis. The patient tolerated the procedure well and did not have any complication. Vascular band was placed right wrist. CONCLUSIONS: 1. Severe ostial LAD stenosis treated with a drug-eluting stent. 2. Dual antiplatelet therapy, statin, low-dose beta jami and SPIKE inhibitor. 3. Observation overnight with BUN, creatinine and electrolytes in the morning. Thiago Blair MD, FACP, FACC, [facility] Interventional Cardiology Vamsi BLAIR MD Jun 15, 2018 4:19 pm
[2018-06-15] MEDS: NS IV 1000 ML 1,000 ML IV SCH (17:13)
--- NOTE | 2018-06-15 19:50 | History & Physicial ---
History of Present Illness History of Present Illness Reason for visit/HPI PT IS A 62 Y/O FEMALE WHO PRESENTED TO THE EMERGENCY DEPARTMENT EARLY THIS MORNING WITH COMPLAINT OF ESCALATING CHEST PAIN. SHE HAD BEEN ADMITTED THIS WEEKEND, PLANNED ON HAVING OUTPATIENT NUCLEAR STRESS TESTING AND WAS DISCHARGED ON FRIDAY WITH PLANS IN PLACE FOR FURTHER TESTING SINCE SHE DID NOT HAVE ELEVATION OF HER CARDIAC ENZYMES OR OTHER CONCERNING EKG CHANGES. HOWEVER EARLY THIS MORNING SHE HAD AN EPISODE OF CHEST PAIN THAT RADIATED TO HER LEFT ARM AND INTO HER BACK THAT WOULD NOT STOP CAUSING PAIN. SHE PRESENTED TO THE EMERGENCY DEPARTMENT AND WAS GIVEN NITRO WHICH HELPED THE PAIN, THEN IT RETURNED AND SHE WAS GIVEN TWO NITRO WITH RESOLUTION OF HER PAIN. SHE WAS ADMITTED FOR FURTHER WORK-UP AND CARDIAC CATH. Date of Admission Jun 15, 2018 at 09:24 Date Seen by a Provider: Jun 15, 2018 Time Seen by a Provider: 19:05 I consulted on this patient on 06/15/18 19:05 Attending Physician Max Dash MD Admitting Physician Max Dash MD Consult DR. Gregg MEADOWS Allergies and Home Medications Allergies Coded Allergies: Sulfa (Sulfonamide Antibiotics) (Unverified Allergy, Unknown, HIVES AND VOMITING, 11/30/14) erythromycin base (Unverified Allergy, Unknown, HIVES AND VOMITING, ) Home Medications Estradiol 1 Mg Tablet, 1 MG PO DAILY, (Reported) Medroxyprogesterone Acetate 2.5 Mg Tablet, 2.5 MG PO HS, (Reported) Omeprazole 40 Mg Capsule.dr, 40 MG PO DAILY Prescribed by: TYSHAWN DUNN on 06/14/187 Sucralfate 1 Gm Tablet, 1 GM PO ACHS Prescribed by: TYSHAWN DUNN on 06/14/18 1317 Patient Home Medication List Home Medication List Reviewed: Yes Past Otirbko-Vpcquy-Lkjpev Hx Patient Social History Marrital Status: Living Status: LIVES AT HOME WITH SPOUSE Employed/Student: employed Alcohol Use: Denies Use Number of Drinks Today: AA Alcohol Beverage of Choice: Beer Recreational Drug Use: No Smoking Status: Never a Smoker 2nd Hand Smoke Exposure: No Physical Abuse Screen: No Sexual Abuse: No Recent Foreign Travel: No Contact w/other who traveled: No Recent Hopitalizations: No Recent Infectious Disease Expo: No Immunizations Up To Date Date of Influenza Vaccine: Apr 13, 2018 Seasonal Allergies Seasonal Allergies: Yes Surgeries Yes (LEFT EAR, LESION REMOVED FROM NECK, CHOLYCYSTECTOMY) Section, Gallbladder Respiratory No Currently Using CPAP: No Currently Using BIPAP: No Cardiovascular No Neurological No Reproductive System Hx Reproductive Disorders: No Genitourinary No Gastrointestinal Yes Gastroesophageal Reflux Musculoskeletal No Endocrine History of Endocrine Disorders: No HEENT History of HEENT Disorders: No Cancer No Psychosocial History of Psychiatric Problem: No Integumentary History of Skin or Integumenta: No Blood Transfusions History of Blood Disorders: No Adverse Reaction to a Blood Tr: No Reviewed Nursing Assessment Reviewed/Agree w Nursing PMH: Yes Family Medical History Significant Family History: Cancer, Other Conditions/Hx (A. fib mother) Family Hx: FH: breast cancer in first degree relative 19 MOTHER Review of Systems Constitutional: No chills, No fever, No malaise, No weakness EENTM: No throat pain Respiratory: No cough, No dyspnea on exertion, No short of breath Cardiovascular: chest pain (RESOLVED); No palpitations Gastrointestinal: No abdominal pain, No constipation, No diarrhea; loss of appetite Genitourinary: no symptoms reported Musculoskeletal: No back pain, No muscle weakness Skin: No change in color, No lesions Psychiatric/Neurological: Denies Anxiety, Denies Depressed All Other Systems Reviewed Negative Unless Noted: Yes Physical Exam Vital Signs Vital Signs - First Documented 06/15/18 06:34 Pulse Ox 98 O2 Delivery Room Air Capillary Refill : Less Than 3 Seconds Height, Weight, BMI Height: 5'0.00" Weight: 130lbs. 0.0oz. 58.582329ga; 25.4 BMI Method:Stated General Appearance: No Apparent Distress, WD/WN Eyes: Bilateral Eye Normal Inspection, Bilateral Eye PERRL, Bilateral Eye EOMI HEENT: PERRL/EOMI, Pharynx Normal Neck: Full Range of Motion, Supple Respiratory: Chest Non Tender, Lungs Clear, Normal Breath Sounds, No Accessory Muscle Use, No Respiratory Distress Cardiovascular: Regular Rate, Rhythm, No Edema, No Murmur, Normal Peripheral Pulses Gastrointestinal: Normal Bowel Sounds, No Organomegaly, No Pulsatile Mass, Non Tender, Soft Rectal: Deferred Back: Normal Inspection Extremity: Normal Capillary Refill, Non Tender, No Pedal Edema Neurologic/Psychiatric: Alert, Oriented x3, No Motor/Sensory Deficits, Normal Mood/Affect Skin: Warm/Dry Lymphatic: No Adenopathy Assessment/Plan Assessment and Plan LEFT ANTERIOR DESCENDING ARTERY SEVERE STENOSIS HYPERTENSION CHEST PAIN ESOPHAGEAL REFLUX LEFT ANTERIOR DESCENDING ARTERY SEVERE STENOSIS - STATUS POST STENTING OF LESION BY DR. MEADOWS - PLAN FOR PLAVIX, STATIN THERAPY, ASPIRIN, BLOOD PRESSURE CONTROL. HYPERTENSION - PT TO BE ON LOW DOSE BETA TANJA THERAPY -METOPROLOL. CHEST PAIN - RESOLVED WITH NITRO ESOPHAGEAL REFLUX - CONTINUE WITH PPI. PLANNING ON DISCHARGE TOMORROW. Admission Diagnosis LEFT ANTERIOR DESCENDING ARTERY SEVERE STENOSIS HYPERTENSION CHEST PAIN ESOPHAGEAL REFLUX Admission Status: Observation Clinical Quality Measures AMI/AHF: ASA po Prior to arrival: Yes DVT/VTE Risk/Contraindication: Risk Factor Score Per Nursin RFS Level Per Nursing on Admit: 3=High MAX DASH MD Jun 15, 2018 19:49
[2018-06-15] MEDS ORDERED: ACETAMINOPHEN 325 MG TABLET PO PRN (20:30)
[2018-06-15] MEDS ORDERED: ATORVASTATIN 40 MG (LIPITOR) TABLET PO SCH (21:00)
[2018-06-15] MEDS ORDERED: ATORVASTATIN 80 MG (LIPITOR) TABLET PO SCH (21:00)
[2018-06-16] MEDS: NS IV 1000 ML 1,000 ML IV SCH (02:01)
[2018-06-16 03:49] VITALS: BP 132/64
[2018-06-16 04:22] LABS: HEMOGLOBIN 12.7 G/DL (11.5-16.0); MEAN PLATELET VOLUME 8.7 FL (7.4-10.4); RED BLOOD COUNT 4.36 10^6/uL (4.35-5.85); RED CELL DISTRIBUTION WIDTH 13.8 % (10.0-14.5); WHITE BLOOD COUNT 8.2 10^3/uL (4.3-11.0)
[2018-06-16 04:43] LABS: BUN/CREATININE RATIO 14; CALCIUM 8.2 MG/DL (8.5-10.1); CARBON DIOXIDE 18 MMOL/L (21-32); CHLORIDE 113 MMOL/L (98-107); CHOLESTEROL 129 MG/DL (< 200); CREATININE SERUM 0.66 MG/DL (0.60-1.30); GFR ESTIMATED > 60; GLUCOSE 98 MG/DL (70-105); HDL CHOLESTEROL 53 MG/DL (40-60); POTASSIUM 3.7 MMOL/L (3.6-5.0); SODIUM 141 MMOL/L (135-145); TRIGLYCERIDES 84 MG/DL (<150); VLDL CHOLESTEROL 17 MG/DL (5-40)
[2018-06-16 08:00] VITALS: BP 139/89
[2018-06-16] MEDS ORDERED: lisINopril 40 MG (PRINIVIL) TABLET PO SCH (09:00)
[2018-06-16] MEDS ORDERED: lisINopril 5 MG (PRINIVIL) TABLET PO SCH (09:00)
[2018-06-16] MEDS ORDERED: CLOPIDOGREL 75 MG (PLAVIX) TABLET PO SCH (09:00)
[2018-06-16] MEDS ORDERED: ASPIRIN E.C. 81 MG (ECOTRIN) TAB PO SCH (09:00)
--- NOTE | 2018-06-16 09:24 | Discharge Summary ---
Diagnosis/Chief Complaint Date of Admission Jun 15, 2018 at 09:24 Date of Discharge Reason Hospital Visit PT IS A 62 Y/O FEMALE WHO PRESENTED TO THE EMERGENCY DEPARTMENT EARLY THIS MORNING WITH COMPLAINT OF ESCALATING CHEST PAIN. SHE HAD BEEN ADMITTED THIS WEEKEND, PLANNED ON HAVING OUTPATIENT NUCLEAR STRESS TESTING AND WAS DISCHARGED ON FRIDAY WITH PLANS IN PLACE FOR FURTHER TESTING SINCE SHE DID NOT HAVE ELEVATION OF HER CARDIAC ENZYMES OR OTHER CONCERNING EKG CHANGES. HOWEVER EARLY THIS MORNING SHE HAD AN EPISODE OF CHEST PAIN THAT RADIATED TO HER LEFT ARM AND INTO HER BACK THAT WOULD NOT STOP CAUSING PAIN. SHE PRESENTED TO THE EMERGENCY DEPARTMENT AND WAS GIVEN NITRO WHICH HELPED THE PAIN, THEN IT RETURNED AND SHE WAS GIVEN TWO NITRO WITH RESOLUTION OF HER PAIN. SHE WAS ADMITTED FOR FURTHER WORK-UP AND CARDIAC CATH. Discharge Summary Discharge Physical Examination Allergies: Coded Allergies: Sulfa (Sulfonamide Antibiotics) (Unverified Allergy, Unknown, HIVES AND VOMITING, 11/30/14) erythromycin base (Unverified Allergy, Unknown, HIVES AND VOMITING, ) Vitals & I&Os Vital Signs Date Time Temp Pulse Resp B/P (MAP) Pulse Ox O2 Delivery O2 Flow Rate FiO2 06/16/18 08:00 99.0 86 18 139/89 (106) 96 Room Air Hospital Course Pending Labs Laboratory Tests 06/16/18 04:00: White Blood Count 8.2, Red Blood Count 4.36, Hemoglobin 12.7, Hematocrit 39, Mean Corpuscular Volume 89, Mean Corpuscular Hemoglobin 29, Mean Corpuscular Hemoglobin Concent 33, Red Cell Distribution Width 13.8, Platelet Count 376, Mean Platelet Volume 8.7, Sodium Level 141, Potassium Level 3.7, Chloride Level 113, Carbon Dioxide Level 18, Anion Gap 10, Blood Urea Nitrogen 9, Creatinine 0.66, Estimat Glomerular Filtration Rate > 60, BUN/Creatinine Ratio 14, Glucose Level 98, Calcium Level 8.2, Triglycerides Level 84, Cholesterol Level 129, LDL Cholesterol Direct 55, VLDL Cholesterol 17, HDL Cholesterol 53 Discharge Instructions to patient/family Please see electronic discharge instructions given to patient. Discharge Medications Reviewed and agree with Discharge Medication list on patient's Discharge Instruction sheet Clinical Quality Measures AMI/AHF: ASA po Prior to arrival: Yes DVT/VTE Risk/Contraindication: Risk Factor Score Per Nursin RFS Level Per Nursing on Admit: 3=High MAX MENDOZA MD Jun 16, 2018 09:24
[2018-06-16] MEDS ORDERED: ASPI-983 PO (09:27)
[2018-06-16] MEDS ORDERED: METO-387 PO (09:27)
[2018-06-16] MEDS ORDERED: ATOR40TA PO (09:27)
[2018-06-16] MEDS ORDERED: LISI-556 PO (09:27)
[2018-06-16] MEDS ORDERED: CLOP75TA28 PO (09:27)
--- NOTE | 2018-06-16 09:28 | Cardiology Progress Note ---
Cardiology SOAP Progress Note Subjective: No further chest pain. Objective: I&O/Vital Signs 06/16/18 06/16/18 06/16/18 06/16/18 03:49 07:00 08:00 10:30 Temp 98.4 99.0 Pulse 84 88 86 86 Resp B/P (MAP) 132/64 (86) 139/89 (106) 139/89 Pulse Ox 97 96 96 O2 Delivery Room Air Room Air Room Air 06/16/18 00:00 Intake Total 750 ml Output Total 750 ml Balance 0 ml Weight (Pounds): 130 Weight (Ounces): 0.0 Weight (Calculated Kilograms): 58.533111 Constitutional: appears stated age; No apparent distress; well-developed, well- nourished Respiratory: No accessory muscle use, No respiratory distress, No chest tender , No chest expansion is symmetric; chest is bilaterally symmetric; No lungs clear to percussion; lungs clear to auscultation; No crackles, No rhonchi, No rales, No stridor, No wheezing, No pleural rub, No other Cardiovascular: regular rate-rhythm; No irregularly irregular, No extra beats, No parasternal heave is noted, No JVD, No edema, No bradycardia, No tachycardia , No point of maximal impulse, No cardiac thrills are palpable; S1 and S2; No gallop/S3, No gallop/S4, No diastolic murmur, No systolic murmur, No friction rub, No click, No other Gastrointestional: No tender, No soft, No round, No distended, No pulsatile mass, No organomegaly, No guarding, No rebound, No tenderness, No hernia, No mass, No audible bowel sounds, No abnormal bowel sounds, No abdominal bruits, No spleenomegaly, No other Extremities: No normal range of motion, No non-tender, No normal inspection, No pedal edema, No calf tenderness, No normal capillary refill, No pelvis stable , No calf tenderness, No inflammation, No pedal edema, No slow capillary refill , No swelling, No other, No abrasion, No clubbing, No cyanosis, No ecchymosis, No laceration, No no lower extremity edema bilateral, No significant edema, No tenderness, No wound Neurologic/Psychiatric: no motor/sensory deficits, alert, normal mood/affect, oriented x 3, power is 5/5 both on sides Skin: No normal color, No warm/dry, No cyanosis, No cool, No diaphoresis, No damp, No ecchymosis, No jaundice, No mottled, No pallor, No rash, No tattoos/ piercings, No ulcerations, No rash on exposed areas, No ulcerations on exposed areas, No other Results/Procedures: Labs Laboratory Tests 06/16/18 04:00: White Blood Count 8.2, Red Blood Count 4.36, Hemoglobin 12.7, Hematocrit 39, Mean Corpuscular Volume 89, Mean Corpuscular Hemoglobin 29, Mean Corpuscular Hemoglobin Concent 33, Red Cell Distribution Width 13.8, Platelet Count 376, Mean Platelet Volume 8.7, Sodium Level 141, Potassium Level 3.7, Chloride Level 113H, Carbon Dioxide Level 18L, Anion Gap 10, Blood Urea Nitrogen 9, Creatinine 0.66, Estimat Glomerular Filtration Rate > 60, BUN/Creatinine Ratio 14, Glucose Level 98, Calcium Level 8.2L, Triglycerides Level 84, Cholesterol Level 129, LDL Cholesterol Direct 55, VLDL Cholesterol 17, HDL Cholesterol 53 A/P: Assessment/Dx: Unstable angina, Status post-PCI to ostial LAD Plan: Unstable angina, prolonged recurrent chest pain refractory to medical therapy. Preliminary echocardiogram shows apical septal hypokinesis. Coronary angiography demonstrated severe ostial stenosis treated successfully with a drug -eluting stent. Long-term dual antiplatelet therapy, low dose lisinopril, beta jami. Moderate to high dose statin therapy. I will follow-up in 3-4 weeks. All discharge instructions were discussed at length including work restrictions and restrictions on right wrist movement. Thank you for your consultation. Please call me if you have any questions. Thiago Blair MD, FACP, FACC, FSCAI, FHRS, CCDS Interventional Cardiology Cardiac Electrophysiology Vascular Medicine and Endovascular Interventions Clinical Quality Measures AMI/AHF: ASA po Prior to arrival: Yes Vamsi BLAIR MD Jun 16, 2018 09:28
--- NOTE | 2018-06-16 09:29 | Discharge Inst-Complex ---
PDI Med Rec & Follow Up Appt. New Medications: Aspirin (Aspirin EC) 81 Mg Tablet. 81 MG PO DAILY, #100 TAB 4 Refills Atorvastatin Calcium (Lipitor) 40 Mg Tablet 40 MG PO HS, #30 TAB 11 Refills Clopidogrel Bisulfate (Clopidogrel) 75 Mg Tablet 75 MG PO DAILY, #30 TAB 11 Refills Lisinopril (Lisinopril) 5 Mg Tablet 2.5 MG PO DAILY@0900, #30 TAB 11 Refills FOR HEART PROTECTION Metoprolol Succinate (Metoprolol Succinate) 25 Mg Tab.er.24h 25 MG PO DAILY, #30 TAB 11 Refills Continued Medications: Estradiol (Estradiol Tablet) 1 Mg Tablet 1 MG PO DAILY, TAB Medroxyprogesterone Acetate (Medroxyprogesterone Acetate) 2.5 Mg Tablet 2.5 MG PO HS, TAB Sucralfate (Sucralfate) 1 Gm Tablet 1 GM PO ACHS, #120 TAB Discontinued Medications: Omeprazole (Omeprazole) 40 Mg Capsule. 40 MG PO DAILY, #30 CAP Prescription: Transmitted to Pharmacy Activity, Diet and PDI Resume Normal Activity: Yes Discharge Diet: Low Fat/Low Cholesterol Drink 6-8 Glasses of Fluid/Day: Yes Driving Instructions: No Driving for 24 Hours Symptoms to Reoprt to : Appetite Changes, Swelling Increased, Bleeding Excessive, Fever Over 101 Degrees F, Pain/Pressure in Chest, Cough Up/Vomit Blood, Heart Beat Irreg/Pounding, Pain/Pressure in Jaw, Dizziness/Fainting For Problems or Questions: Contact Your Physician, Go to Emergency Room MAX MENDOZA MD Jun 16, 2018 09:28
[2018-06-16 10:30] VITALS: BP 139/89
--- OUTSIDE RECORDS SUMMARY | 2018-06-17 13:55 | XMS REPORT | Continuity of Care Document ---
Author Author [facility] Organization [facility] Address Unknown Phone Unavailable Allergies Active Description Code Type Severity Reaction Onset Reported/Identified Relationship to Patient Clinical Status Yes erythromycin base [id number] Drug Allergy Unknown HIVES AND VOMIT 2014 Yes Sulfa (Sulfonamide Antibiotics) [id number] Drug Allergy Unknown HIVES AND VOMIT 11/30/2014 [...] E04.2 NONTOXIC MULTINODULAR GOITER 02/20/2016 GARY GONZALES SQUASH CENTRE MANAGER Ot E04.2 NONTOXIC MULTINODULAR GOITER 03/15/2016 LANA PLEITEZ REAMING MACHINE OPERATOR FOR PLASTIC Ot 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, N 03/15/2016 LANA PLEITEZ REAMING MACHINE OPERATOR FOR PLASTIC Ot 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, N 03/19/2016 LANA PLEITEZ REAMING MACHINE OPERATOR FOR PLASTIC Ot 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, N 03/22/2016 LANA PLEITEZ REAMING MACHINE OPERATOR FOR PLASTIC Ot K42.9 UMBILICAL HERNIA WITHOUT OBSTRUCTION OR 03/22/2016 LANA PLEITEZ REAMING MACHINE OPERATOR FOR PLASTIC Ot N28.1 CYST OF KIDNEY, ACQUIRED 03/22/2016 LANA PLEITEZ REAMING MACHINE OPERATOR FOR PLASTIC Ot 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, N 04/09/2016 LANA PLEITEZ REAMING MACHINE OPERATOR FOR PLASTIC Ot K42.9 UMBILICAL HERNIA WITHOUT OBSTRUCTION OR [...] NONTOXIC SINGLE THYROID NODULE 06/20/2016 GARY GONZALES [employer]ASH CENTRE MANAGER Ot E04.2 NONTOXIC MULTINODULAR GOITER 06/20/2016 LANA PLEITEZ REAMING MACHINE OPERATOR FOR PLASTIC Ot 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, N 06/20/2016 LANA PLEITEZ REAMING MACHINE OPERATOR FOR PLASTIC Ot K42.9 UMBILICAL HERNIA WITHOUT OBSTRUCTION OR 06/20/2016 LANA PLEITEZ REAMING MACHINE OPERATOR FOR PLASTIC Ot N28.1 CYST OF KIDNEY, ACQUIRED 12/30/2016 [...] V74.8 SCREEN-BACTERIAL DIS NEC 12/30/2016 YARA DC BANKING PIN ADJUSTER Ot Z13.9 ENCOUNTER FOR SCREENING, UNSPECIFIED 12/30/2016 YUNG HAQUE MD Ot E04.1 NONTOXIC SINGLE THYROID NODULE 12/30/2016 YUNG HAQUE MD Ot E04.1 NONTOXIC SINGLE THYROID NODULE 12/30/2016 GARY GONZALES S[employer]ASH CENTRE MANAGER Ot E04.2 NONTOXIC MULTINODULAR GOITER 12/30/2016 LANA PLEITEZ REAMING MACHINE OPERATOR FOR PLASTIC Ot 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, N 12/30/2016 LANA PLEITEZ REAMING MACHINE OPERATOR FOR PLASTIC Ot K42.9 UMBILICAL HERNIA WITHOUT OBSTRUCTION OR 12/30/2016 LANA PLEITEZ REAMING MACHINE OPERATOR FOR PLASTIC Ot N28.1 CYST OF KIDNEY, ACQUIRED 01/08/2017 [...] V74.8 SCREEN-BACTERIAL DIS NEC 09/12/2017 YARA DC BANKING PIN ADJUSTER Ot Z13.9 ENCOUNTER FOR SCREENING, UNSPECIFIED 09/12/2017 GARLAND WISEMAN, YUNG Brown Ot E04.1 NONTOXIC SINGLE THYROID NODULE 09/12/2017 GARLAND WISEMAN, YUNG Brown Ot E04.1 NONTOXIC SINGLE THYROID NODULE 09/12/2017 GARY GONZALES SQUASH CENTRE MANAGER Ot E04.2 NONTOXIC MULTINODULAR GOITER 09/12/2017 LANA PLEITEZ REAMING MACHINE OPERATOR FOR PLASTIC Ot 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, N 09/12/2017 LANA PLEITEZ REAMING MACHINE OPERATOR FOR PLASTIC Ot K42.9 UMBILICAL HERNIA WITHOUT OBSTRUCTION OR 09/12/2017 LANA PLEITEZ REAMING MACHINE OPERATOR FOR PLASTIC Ot N28.1 CYST OF KIDNEY, ACQUIRED 09/12/2017 SAQIB WISEMAN, LORENZA Burns Ot E04.2 NONTOXIC MULTINODULAR GOITER 09/15/2017 LANA PLEITEZ REAMING MACHINE OPERATOR FOR PLASTIC Ot 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 Type Provider Facility Loc./Unit Complaint [id number] 01/26/2018 07:55:00 01/26/2018 23:59:59 CLS Outpatient AGRY GONZALES [facility] RAD MULTINODULAR GOITER [id number] 12/26/2017 07:16:00 12/26/2017 09:40:00 DIS Outpatient TARAN SERRANO MD [facility] ENDO SCREENING [id number] 12/22/2017 08:30:00 12/22/2017 10:22:00 DIS Outpatient ARIC LOPEZ MD [facility] PREOP COLONOSCOPY [id number] 09/15/2017 12:53:00 09/15/2017 23:59:59 CLS Outpatient LANA PLEITEZ REAMING MACHINE OPERATOR FOR PLASTIC [facility] RAD 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 [id number] 01/06/2017 09:19:00 01/06/2017 23:59:59 CLS Outpatient LORENZA CERRATO MD [facility] RAD THYROID NODULE [id number] 03/21/2016 08:05:00 03/21/2016 23:59:59 CLS Outpatient LANA PLEITEZ REAMING MACHINE OPERATOR FOR PLASTIC [facility] RAD INDETERMINATE LESION IN LT KIDNEY [id number] 03/13/2016 13:14:00 03/13/2016 23:59:59 CLS Outpatient LANA PLEITEZ REAMING MACHINE OPERATOR FOR PLASTIC [facility] RAD NANDO RAUL KASSIDY SYNDROME [id number] 01/24/2016 13:06:00 01/24/2016 23:59:59 CLS Outpatient GARY GONZALES SQUASH CENTRE MANAGER [facility] RAD MULTINODULAR GOITER [id number] 07/11/2015 11:02:00 07/11/2015 23:59:59 CLS Outpatient YUNG HAQUE MD [facility] CARD ENLARGED THYROID LEFT SIDE [id number] 07/10/2015 08:05:00 07/10/2015 23:59:59 CLS Outpatient YUNG HAQUE MD [facility] RAD 1 CM NODULE LT SIDE [id number] 04/27/2015 07:59:00 04/27/2015 23:59:59 CLS Outpatient YARA DC BANKING PIN ADJUSTER [facility] RAD GENETIC SCREENING [id number] 12/01/2014 09:50:00 12/02/2014 10:30:00 DIS Outpatient ARIC LOPEZ MD [facility] SDC GALLSTONES [id number] 11/30/2014 08:49:00 11/30/2014 23:59:59 CLS Outpatient ARIC LOPEZ MD [facility] PREOP GALLSTONES [id number] 10/08/2013 09:40:00 10/08/2013 23:59:59 CLS Outpatient MARIA D DWYER MD [facility] RAD GENETIC SCREENING [id number] 02/13/2018 14:59:00 02/13/2018 23:59:00 DIS Outpatient YUNG HAQUE [id number] 01/09/2017 14:28:00 01/09/2017 23:59:00 DIS Outpatient MAX MENDOZA
== END 2018-06-16 10:30 | disposition home or self-care (01) ==
LOC: EDUNIT# 06:31 → ER 06:33 → 4TH 09:24 → UNDOADMOB 09:24 → 4TH 09:24 → CATH 09:24 → UNDODISOB 06-16 10:30
PROVIDERS: ATTEND Family Medicine
DX: I25.119 Atherosclerotic heart disease of native coronary artery with unspecified angina pectoris (principal); K21.9 Gastro-esophageal reflux disease without esophagitis; I10 Essential (primary) hypertension; Z80.3 Family history of malignant neoplasm of breast
CPT/HCPCS: 36221; 36415; 71045; 80048; 80053; 80061; 82550; 83690; 83735; 83874; 84484; 85025; 85027; 85347; 85379; 85610; 85730; 93005; 93041; 93306; 93458

== ENCOUNTER → 2019-02-11 | Outpatient (CLI) | payer BC ==
[~2019-02-11] MED LIST changes: +ASPI-983 PO; +ATOR40TA PO; +CLOP75TA28 PO; +LISI-556 PO; +METO-387 PO; +REGADENOSON 0.4 MG/5 ML SYR (LEXISCAN) IV ONE
[2019-02-11] MEDS: CATHETER FLUSH 10 ML SYR IV PRN ×2 (07:41→09:26)
[2019-02-11 09:24] VITALS: BP 130/78
--- NOTE | 2019-02-13 14:03 | Cardiology Stress Test Report ---
Stress Test Report Type of NM Stress Test: Test Type: LEXISCAN 0.4MG/5ML Date of Procedure/Referring: Date of Procedure: Feb 11, 2019 PCP Vamsi Blair MD Admitting Physician Alisha Dash MD Indications: Chest pain, CAD Baseline Heart Rate: 65 Baseline Blood Pressure: Blood Pressure Systolic: 130 Blood Pressure Diastolic: 78 Baseline EKG: Baseline EKG: sinus rhythm Summary & Conclusion: Summary: The patient was brought to the stress lab after informed consent was taken. Stress test was performed according to the Lexiscan protocol. 0.4 mg of IV Lexiscan was given. Low-grade exercise was performed. Baseline EKG showed sinus rhythm at 65 BPM. Initial blood pressure was 130/78 mmHg. Maximum heart rate was 132 bpm and blood pressure 154/84 mmHg. Patient did not have any chest pain, arrhythmias or ST segment changes during the stress test. 10.4 mCi of Myoview were given for rest imaging and 29.5 mCi of Myoview given for stress imaging. Transient ischemic dilatation score 0.93, EF 71 percent. Normal wall motion. Normal myocardial perfusion imaging during rest and stress. Conclusion: Pharmacological stress test was negative for ischemia. Normal LV function with no wall motion abnormalities. Normal myocardial perfusion imaging during rest and stress. Vamsi BLAIR MD Feb 13, 2019 2:03 pm
== END ==
LOC: CARD 06:58
PROVIDERS: ATTEND Internal Medicine Interventional Cardiology
DX: I25.10 Atherosclerotic heart disease of native coronary artery without angina pectoris (principal); E78.5 Hyperlipidemia, unspecified; I10 Essential (primary) hypertension
CPT/HCPCS: 78452; 93017

== ENCOUNTER → 2019-04-12 | Outpatient (CLI) | payer BC ==
[~2019-04-12] MED LIST changes: -REGADENOSON 0.4 MG/5 ML SYR (LEXISCAN) IV ONE
--- NOTE | 2019-04-12 12:54 | Diagnostic Imaging Report ---
PROCEDURE: US Renal Bilateral. TECHNIQUE: Multiple real-time grayscale images were obtained over the kidneys in various projections bilaterally. INDICATION: Family history of renal cell carcinoma. FINDINGS: The right kidney measures 11.6 x 4.0 x 4.6 cm and the left kidney measures 11.7 x 5.8 x 4.6 cm. Cortical thickness and echogenicity are normal. No renal calculus or hydronephrosis is seen. No renal mass is detected. Partially filled urinary bladder is unremarkable. Bilateral ureteral jets are visualized. IMPRESSION: Unremarkable renal and bladder ultrasound. Dictated by: Dictated on workstation # [id number]
== END ==
LOC: RAD 11:30
PROVIDERS: ATTEND Nurse Practitioner Family
DX: Z80.51 Family history of malignant neoplasm of kidney (principal)
CPT/HCPCS: 76770

== ENCOUNTER → 2020-10-05 | Outpatient (CLI) | payer BC ==
[~2020-10-05] MED LIST changes: +ASPI-1238 PO; -ASPI-983 PO; -LISI-556 PO; +LISI-729 PO; -METO-387 PO; +MTP25TSR PO; +OMEP40CA27 PO; -OMEP40CA36 PO
--- NOTE | 2020-10-05 13:53 | Diagnostic Imaging Report ---
PROCEDURE: US Renal Bilateral. INDICATION: FAMILY HX RENAL CARCINOMA TECHNIQUE: Multiple real-time grayscale sonographic images were obtained of the kidneys. CORRELATION: 04/12/2019 FINDINGS: RIGHT KIDNEY: 11.0 x 3.5 x 4.9 cm. There is normal echotexture of the right renal parenchyma. No definitive calcification or hydronephrosis. LEFT KIDNEY: 10.0 x 4.3 x 5.6 cm. There is normal echotexture of the left renal parenchyma. No definitive calcification or hydronephrosis. URINARY BLADDER: The partially distended bladder has an unremarkable appearance. Bilateral ureteral jets are present. IMPRESSION: 1. Unremarkable renal sonogram. Dictated by: Dictated on workstation # [id number]
== END ==
LOC: RAD 12:30
PROVIDERS: ATTEND Nurse Practitioner Family
DX: Z80.51 Family history of malignant neoplasm of kidney (principal)
CPT/HCPCS: 76770

== ENCOUNTER → 2021-02-12 | Outpatient (CLI) | payer BC ==
[~2021-02-12] MED LIST changes: -OMEP40CA27 PO; +OMEP40CA6 PO
== END ==
LOC: CARD 14:00
PROVIDERS: ATTEND Internal Medicine Cardiovascular Disease
DX: I08.0 Rheumatic disorders of both mitral and aortic valves (principal); Q21.1 Atrial septal defect
CPT/HCPCS: 93306

== ENCOUNTER 2021-08-03 09:51 | Outpatient (CLI) | payer BC ==
[~2021-08-03] VITALS: Ht 152.4 cm; Wt 65.8 kg
[~2021-08-03 09:51] MED LIST changes: -LISI-729 PO; +LISI5TAB20 PO
[2021-08-03 09:58] VITALS: BP 117/74
[2021-08-03] MEDS ORDERED: CASIRIVIMAB/IMDEVIMAB 1,200 MG in NS (IVPB) 50 ML IV ONE (10:00)
[2021-08-03] MEDS ORDERED: EPINEPHrine INJECTION 1 MG/ML AMP IM PRN (10:00)
[2021-08-03] MEDS ORDERED: ONDANSETRON 4 MG/2 ML (SDV) Z0FRAN IV PRN (10:00)
[2021-08-03] MEDS ORDERED: diphenhydrAMINE 50 MG/ML INJ (BENADRYL) IV PRN (10:00)
[2021-08-03] MEDS ORDERED: ACETAMINOPHEN 500 MG TAB (TYLENOL) PO PRN (10:00)
[2021-08-03 11:02] VITALS: BP 108/64
== END 2021-08-03 11:02 ==
LOC: INFUSION 09:51
PROVIDERS: ATTEND Family Medicine
DX: U07.1 COVID-19 (principal)

== ENCOUNTER 2022-06-15 09:00 | Emergency (ER) | payer MEDICARE, OTHER ==
[~2022-06-15] VITALS: Ht 152.4 cm; Wt 59.0 kg
[2022-06-15] MEDS ORDERED: BENZONATATE 100 MG (TESSALON) CAPSULE PO ONE (10:00)
[2022-06-15] MEDS ORDERED: BENZ200C51 PO (10:06)
[2022-06-15] MEDS ORDERED: OSLT75C PO (10:06)
--- NOTE | 2022-06-15 10:06 | ED General ---
General Chief Complaint: COVID19 Suspect/Confirmed Stated Complaint: COUGH/SORE THROAT/FEVER/HEADACHE Nursing Triage Note: PT AMBULATE TO ROOM 03 WITHOUT DIFFICULTY WITH C/O COUGH, FEVER, BILAT EAR PAIN, HEADACHE, SCRATCHY THROAT SINCE 2029 LAST NIGHT. PT REPORTS TAKING ADVIL FOR C/O. Source of Information: Patient, Family Exam Limitations: No Limitations History of Present Illness Date Seen by Provider: Jun 15, 2022 Time Seen by Provider: 09:07 Initial Comments This 66-year-old woman presents to the emergency room accompanied by her who is also ill with similar symptoms. Patient reports cough, fever, headache, ear discomfort and scratchy throat since yesterday evening. She has taken Tylenol and ibuprofen for the symptoms. Her vital signs are stable. Her however is quite ill and hypoxic. He was diagnosed with influenza A and admitted to the hospital. Allergies and Home Medications Allergies Coded Allergies: Sulfa (Sulfonamide Antibiotics) (Unverified Allergy, Unknown, HIVES AND VOMITING, 11/30/14) erythromycin base (Unverified Allergy, Unknown, HIVES AND VOMITING, 11/30/14) Patient Home Medication List Home Medication List Reviewed: Yes Aspirin (Aspirin EC) 81 Mg Tablet.dr, 81 MG PO DAILY Prescribed by: MAX MENDOZA on 06/16/18926 Atorvastatin Calcium (Lipitor) 40 Mg Tablet, 40 MG PO HS Prescribed by: MAX MENDOZA on 06/16/18926 Benzonatate (Benzonatate) 200 Mg Capsule, 200 MG PO TID PRN for COUGH Prescribed by: FANTA MORALES on 06/15/22 1006 Clopidogrel Bisulfate (Clopidogrel) 75 Mg Tablet, 75 MG PO DAILY Prescribed by: MAX MENDOZA on 06/16/18926 Estradiol (Estradiol Tablet) 1 Mg Tablet, 1 MG PO DAILY, (Reported) Entered as Reported by: KENDALL CHEEMA on 12/22/17827 Lisinopril (Lisinopril) 5 Mg Tablet, 2.5 MG PO DAILY@0900 Prescribed by: MAX MENDOZA on 06/16/18926 Medroxyprogesterone Acetate (Medroxyprogesterone Acetate) 2.5 Mg Tablet, 2.5 MG PO HS, (Reported) Entered as Reported by: KENDALL CHEEMA on 12/22/17827 Metoprolol Succinate (Metoprolol Succinate) 25 Mg Tab.er.24h, 25 MG PO DAILY Prescribed by: MAX MENDOZA on 06/16/18 0927 Oseltamivir Phosphate (Tamiflu) 75 Mg Cap, 75 MG PO BID Prescribed by: FANTA MORALES on 06/15/22 1006 Sucralfate (Sucralfate) 1 Gm Tablet, 1 GM PO ACHS Prescribed by: TYSHAWN DUNN on 06/14/18 1317 Review of Systems Review of Systems Constitutional: see HPI EENTM: see HPI Respiratory: see HPI Cardiovascular: no symptoms reported Gastrointestinal: no symptoms reported Genitourinary: no symptoms reported : No Musculoskeletal: no symptoms reported Skin: no symptoms reported Psychiatric/Neurological: See HPI Hematologic/Lymphatic: No Symptoms Reported Immunological/Allergic: no symptoms reported Past Lqqnzab-Ooalzv-Hlobkm Hx Patient Social History Tobacco Use?: No Smoking Status: Never a Smoker Smokeless Tobacco Frequency: Never a User Use of E-Cig and/or Vaping dev: No Use of E-Cig and/or Vaping Hemanth: Never a User Substance use?: No Alcohol Use?: Yes Alcohol Frequency: Once in a while Pt feels they are or have been: No Immunizations Up To Date COVID19 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 Seasonal Allergies Seasonal Allergies: Yes Past Medical History Surgeries: Yes (LEFT EAR, LESION REMOVED FROM NECK, CHOLYCYSTECTOMY) Section, Coronary Stent, Gallbladder Respiratory: No Currently Using CPAP: No Currently Using BIPAP: No Cardiac: Yes Coronary Artery Disease Neurological: No Reproductive Disorders: No Genitourinary: No Gastrointestinal: Yes Gastroesophageal Reflux Musculoskeletal: No Endocrine: No HEENT: No Cancer: No Psychosocial: No Integumentary: No Blood Disorders: No Adverse Reaction/Blood Tranf: No Family Medical History FH: breast cancer in first degree relative 19 MOTHER Cancer, Other Conditions/Hx Physical Exam Vital Signs Vital Signs - First Documented 06/15/22 10:30 Pulse Ox 98 Capillary Refill : Less Than 3 Seconds Height, Weight, BMI Height: 5'0.00" Weight: 130lbs. 0.0oz. [id number]; 25.00 BMI Method:Stated General Appearance: No Apparent Distress, WD/WN HEENT: PERRL/EOMI, TMs Normal, Normal ENT Inspection, Pharynx Normal Neck: Normal Inspection; No JVD Respiratory: Lungs Clear, Normal Breath Sounds, No Accessory Muscle Use Cardiovascular: No Edema, No Murmur, Tachycardia (mild, regular) Gastrointestinal: Non Tender, Soft Extremity: Normal Inspection, No Pedal Edema Neurologic/Psychiatric: Alert, Oriented x3, No Motor/Sensory Deficits, Normal Mood/Affect Skin: Normal Color, Warm/Dry Progress/Results/Core Measures Suspected Sepsis SIRS Temperature: Pulse: 99 Respiratory Rate: 18 Blood Pressure 114 /50 Mean: 71 Results/Orders Lab Results Laboratory Tests Test 06/15/22 09:10 Range/Units Influenza Type A (RT-PCR) Not Detected Not Detecte Influenza Type B (RT-PCR) Not Detected Not Detecte SARS-CoV-2 RNA (RT-PCR) Not Detected Not Detecte My Orders Orders - FANTA SOLER MD Covid 19 Inhouse Test (06/15/22 09:07) Influenza A And B By Pcr (06/15/22 09:07) Benzonatate Capsule (Tessalon Perles) (06/15/22 10:00) Medications Given in ED Vital Signs/I&O 06/15/22 06/15/22 06/15/22 09:02 09:02 10:30 Temp 36.8 36.7 Pulse 99 76 Resp 18 16 B/P (MAP) 114/50 (71) 134/77 Pulse Ox 98 O2 Delivery Room Air Room Air Room Air Capillary Refill : Less Than 3 Seconds Blood Pressure Mean: 71 Progress Note : Progress Note Patient was stable with a relatively unremarkable exam. Viral swabs were negative. However, she was offered Tamiflu because her was diagnosed with influenza a and became symptomatic a few days prior to her illness. She has history of coronary artery disease and is 66 years old, so she would benefit from Tamiflu. Prescription was provided. Tessalon Perles were given for cough. Departure Impression Primary Impression: Flu-like symptoms Disposition: 01 HOME, SELF-CARE Condition: Improved Departure-Patient Inst. Decision time for Depature: 10:04 Referrals: MAX MENDOZA MD (PCP/Family) Primary Care Physician Patient Instructions: Flu Add. Discharge Instructions: Drink plenty of clear liquids to stay well-hydrated. You may use ibuprofen up to 600 mg every 6 hours and/or Tylenol (acetaminophen) up to 1000 mg every 6 hours as needed for pain or fever. Complete the entire course of Tamiflu as prescribed. Do not discontinue before all 10 doses are completed even if you are feeling better. You may take the Tessalon Perles as prescribed for cough suppression. You may alternatively use an [id number] cough suppressant with dextromethorphan (DM). Return to care if you have worsening symptoms despite following these instructions. All discharge instructions reviewed with patient and/or family. Voiced understanding. Scripts Oseltamivir Phosphate (Tamiflu) 75 Mg Cap 75 MG PO BID, #10 CAP Prov: FANTA SOLER MD 06/15/22 Benzonatate (Benzonatate) 200 Mg Capsule 200 MG PO TID PRN for COUGH, #20 CAP Prov: FANTA SOLER MD 06/15/22 Copy Copies To 1: MAX MENDOZA MD, JOSHUA T MD Jun 15, 2022 10:06
[2022-06-15 10:30] VITALS: BP 134/77
== END 2022-06-15 10:30 | disposition home or self-care (01) ==
LOC: EDUNIT# 09:00 → ER 09:02
DX: R05.9 Cough, unspecified (principal); R50.9 Fever, unspecified; R51.9 Headache, unspecified; H92.03 Otalgia, bilateral; R09.89 Other specified symptoms and signs involving the circulatory and respiratory systems; Z20.822 Contact with and (suspected) exposure to COVID-19; Z28.311 Partially vaccinated for COVID-19
CPT/HCPCS: 87636

== ENCOUNTER → 2022-08-09 | Outpatient (CLI) | payer MEDICARE, OTHER ==
[~2022-08-09] MED LIST changes: +BENZ200C51 PO; +OSLT75C PO
== END ==
LOC: CARD 10:30
PROVIDERS: ATTEND Internal Medicine Cardiovascular Disease
DX: I35.1 Nonrheumatic aortic (valve) insufficiency (principal); I10 Essential (primary) hypertension
CPT/HCPCS: 93306

== ENCOUNTER → 2022-11-15 | Outpatient (CLI) | payer MEDICARE, OTHER ==
[~2022-11-15] VITALS: Ht 152 cm; Wt 61.0 kg
[~2022-11-15] MED LIST changes: +CATHETER FLUSH 10 ML SYR IVP PRN; +REGADENOSON 0.4 MG/5 ML SYR (LEXISCAN) IV ONE
[2022-11-15 08:46] VITALS: BP 132/69
--- NOTE | 2022-11-15 12:52 | STRESS TEST ---
DATE OF SERVICE: 11/15/2022 RESTING AND POST EXERCISE TECHNETIUM-99M TETROFOSMIN SPECT CT IMAGING ORDERING PHYSICIAN: Malik Doty MD; THALIA; OSVALDO; CHANDNI; PRIMARY PHYSICIAN: Dr. Dash. CLINICAL DIAGNOSIS: Coronary artery disease. Baseline images were carried out after injection of 10.58 mCi of technetium-99m tetrofosmin. This was followed by 0.4 mg regadenoson and 29.4 mCi of technetium-99m tetrofosmin for stress imaging. The electrocardiogram showed sinus rhythm at baseline and did not change significantly with regadenoson infusion. The patient tolerated the procedure well. Review of images at rest and following stress does not indicate any significant perfusion defects consistent with myocardial ischemia or infarction. Gated images show normal global left ventricular systolic function with normal regional wall motion. Left ventricular ejection fraction is calculated to be 65%. CONCLUSIONS: 1. No evidence of any significant myocardial ischemia or infarction on this study. 2. Normal regional wall motion. 3. Normal global left ventricular systolic function with a calculated ejection fraction of 55%. Job ID: [id number] DocumentID: [id number] Dictated Date: 11/15/2022 10:29:52 Fish Liver Sorter Date: 11/15/2022 12:50:00 Dictated By: MALIK DOTY MD; THALIA; OSVALDO; CHANDNI;
== END ==
LOC: CARD 07:06
PROVIDERS: ATTEND Internal Medicine Cardiovascular Disease
DX: I25.10 Atherosclerotic heart disease of native coronary artery without angina pectoris (principal)
CPT/HCPCS: 78452; 93017; A9502

== ENCOUNTER → 2023-04-21 | Outpatient (CLI) | payer MEDICARE, OTHER ==
[~2023-04-21] MED LIST changes: -CATHETER FLUSH 10 ML SYR IVP PRN; -REGADENOSON 0.4 MG/5 ML SYR (LEXISCAN) IV ONE
--- NOTE | 2023-04-21 20:04 | Diagnostic Imaging Report ---
INDICATION: Sinusitis, allergic rhinitis, and hypertension. PA and lateral chest obtained at 10:07 a.m. FINDINGS: Heart and mediastinal silhouette are normal in appearance. The lungs are clear. There is no pneumothorax or pleural fluid. IMPRESSION: No acute process in the chest. Dictated by: Dictated on workstation # [id number]
--- NOTE | 2023-04-21 20:30 | Diagnostic Imaging Report ---
INDICATION: Primary hypertension. FINDINGS: Kidneys normal in size, cortical thickness and parenchymal echotexture. No hydronephrosis. The right 10.3, the left 10.9 cm. Renal arterial waveforms appeared unremarkable. There is moderate elevation of the bilateral renal arterial to aortic systolic velocity ratios of 2.0 right and 2.3 left. Elevations of 3.0 and greater are felt to reflect likely a hemo-dynamically significant stenosis. IMPRESSION: Mild to moderate elevation of the renal arterial to aortic systolic velocity ratios; they were however below the threshold for suspecting renal artery stenoses and the kidneys themselves unobstructed and appeared normal. Dictated by: Dictated on workstation # [id number]
== END ==
LOC: RAD 08:45
PROVIDERS: ATTEND Nurse Practitioner Family
DX: Z12.31 Encounter for screening mammogram for malignant neoplasm of breast (principal); J32.9 Chronic sinusitis, unspecified; J30.9 Allergic rhinitis, unspecified; I10 Essential (primary) hypertension; E78.5 Hyperlipidemia, unspecified; Q87.89 Other specified congenital malformation syndromes, not elsewhere classified
CPT/HCPCS: 71046; 76770; 93975